=== PATIENT | male | born 1990 | race Two or more races ===

== ENCOUNTER 2020-07-21 08:19 | Outpatient (REF) | payer MEDICAID, SELFPAY ==
[2020-07-21 08:42] LABS: COVID-19 Test Negative (Negative)
== END 2020-07-21 08:20 | disposition home or self-care (01) ==
LOC: HO.LAB 08:19
PROVIDERS: Visit Provider Internal Medicine
DX: Z20.822 Contact with and (suspected) exposure to COVID-19 (principal)
CPT/HCPCS: 36415; 87635; C9803

== ENCOUNTER 2021-03-04 17:37 | Emergency (ER) | payer MEDICAID, SELFPAY ==
--- NOTE | ~2021-03-04 | CT_ITS ---
EXAMINATION: NONCONTRAST HEAD CT NONCONTRAST CERVICAL SPINE CT INDICATION INFORMATION: Seizure, neck pain, head injury COMPARISON: None TECHNIQUE: Separate noncontrast CT examinations of the head and cervical spine were performed. Coronal head CT images and coronal and sagittal cervical spine images were created at the technologist workstation. DLP: 1224 mGy-cm DOSE LOWERING TECHNIQUES: This CT examination was performed using dose optimization techniques as appropriate, variously including the following: - Automated exposure control - Adjustment of mA and/or kV according to patient size (this includes techniques or standardized protocols for targeted exams were dose is matched to indication/reason for exam; i.e. extremities or head) - Use of iterative reconstruction technique FINDINGS: Head: There is no evidence of acute intracranial hemorrhage or territorial infarction. No abnormal mass-effect or midline shift is seen. Mae to white matter differentiation is well preserved. No extra-axial fluid collections are identified. The ventricles are normal in size. There is no abnormal attenuation within the brain parenchyma. The osseous structures and soft tissues are normal. There are suspected mucous retention cyst in the maxillary sinuses inferiorly. The mastoid air cells are well-aerated. Cervical spine: There is anatomic alignment of the vertebral bodies and posterior elements. Vertebral body heights are maintained. Intervertebral disc spaces are preserved. No evidence of acute fracture. No prevertebral soft tissue swelling. Visualized portions of the lung apices are unremarkable. The thyroid gland is unremarkable. CT/CT head/brain wo con IMPRESSION: No acute findings identified in the head or cervical spine.
--- NOTE | ~2021-03-04 | CT_ITS ---
EXAMINATION: NONCONTRAST HEAD CT NONCONTRAST CERVICAL SPINE CT INDICATION INFORMATION: Seizure, neck pain, head injury COMPARISON: None TECHNIQUE: Separate noncontrast CT examinations of the head and cervical spine were performed. Coronal head CT images and coronal and sagittal cervical spine images were created at the technologist workstation. DLP: 1224 mGy-cm DOSE LOWERING TECHNIQUES: This CT examination was performed using dose optimization techniques as appropriate, variously including the following: - Automated exposure control - Adjustment of mA and/or kV according to patient size (this includes techniques or standardized protocols for targeted exams were dose is matched to indication/reason for exam; i.e. extremities or head) - Use of iterative reconstruction technique FINDINGS: Head: There is no evidence of acute intracranial hemorrhage or territorial infarction. No abnormal mass-effect or midline shift is seen. Mae to white matter differentiation is well preserved. No extra-axial fluid collections are identified. The ventricles are normal in size. There is no abnormal attenuation within the brain parenchyma. The osseous structures and soft tissues are normal. There are suspected mucous retention cyst in the maxillary sinuses inferiorly. The mastoid air cells are well-aerated. Cervical spine: There is anatomic alignment of the vertebral bodies and posterior elements. Vertebral body heights are maintained. Intervertebral disc spaces are preserved. No evidence of acute fracture. No prevertebral soft tissue swelling. Visualized portions of the lung apices are unremarkable. The thyroid gland is unremarkable. CT/CT cervical spine wo con IMPRESSION: No acute findings identified in the head or cervical spine.
[2021-03-04 18:23] VITALS: BP 119/89; PULSE 91; RESP 12; TEMP 36.7; O2SAT 99; BMI 22.6
--- NOTE | 2021-03-04 21:27 | ECG_ITS ---
Test Reason : SEIZURE Blood Pressure : / mmHG Vent. Rate : 064 BPM Atrial Rate : 064 BPM P-R Int : 102 ms QRS Dur : 090 ms QT Int : 374 ms P-R-T Axes : 061 055 058 degrees QTc Int : 385 ms Sinus rhythm with short [place] ST elevation, consider early repolarization Borderline ECG No previous ECGs available Referred By: Hernan Singh Electronically Signed By:Aman Camacho
[2021-03-04 21:45] LABS: MANUAL DIFF FLAG NO
[2021-03-04] MEDS: LORazepam 2 MG/ML VIAL IVPUSH (21:45)
[2021-03-04 21:47] LABS: Basophils Absolute Auto 0.1 X10*3/uL (0.0-0.2); Basophils Percent Auto 0.4 % (0-2); Eosinophils Percent Auto 0.2 % (0-4); Hematocrit 52.2 % (42.0-52.0); Hemoglobin 17.1 g/dl (14.0-18.0); Imm Gran Abs Auto 0.11 X10*3/uL (0.00-0.03); Imm Gran Pct Auto 0.6 % (0.0-0.4); Lymphocytes Absolute Auto 2.6 X10*3/uL (1.2-4.9); Lymphocytes Percent Auto 14.2 % (20-40); Mean Corpuscular HGB Conc 32.8 g/dl (31.0-36.0); Mean Corpuscular Hemoglobin 29.6 pg (27.0-33.0); Mean Corpuscular Volume 90.5 fL (80.0-98.0); Mean Platelet Volume 11.4 fL (9.4-12.4); Monocytes Absolute Auto 0.8 X10*3/uL (0.1-1.2); Monocytes Percent Auto 4.6 % (2-11); Neutrophils Absolute Auto 14.5 x10*3/uL (2.0-8.3); Platelet Count 267 X10*3/uL (160-400); Red Blood Count 5.77 X10*6/uL (4.60-5.80); Red Cell Distribution Width 13.4 % (11.0-16.0); White Blood Count 18.1 X10*3/uL (4.8-10.8)
[2021-03-04 22:00] VITALS: BP 98/56; PULSE 67; RESP 18; TEMP 36.8; O2SAT 96
[2021-03-04 22:07] LABS: Alanine Aminotransferase 30 U/L (0-40); Alkaline Phosphatase 108 U/L (39-117); Anion Gap 24 (12-20); Aspartate Amino Transferase 24 U/L (5-37); Bilirubin Direct < 0.2 mg/dL (0.0-0.5); Bilirubin Total 0.4 mg/dL (0.0-1.0); Blood Urea Nitrogen 9 mg/dL (9-16); Calcium 9.8 mg/dL (8.4-10.2); Carbon Dioxide 14 mmol/L (22-29); Chloride 107 mmol/L (96-108); Creatinine Clr Calc Pharmacy 98.9; Estimated Glomerular Filt Rate > 60; Glucose Random 119 mg/dL (60-115); Lipase 74 U/L (8-78); Potassium 3.7 mmol/L (3.3-5.1); Sodium 141 mmol/L (135-145); Total Protein 8.6 g/dL (6.5-8.0)
[2021-03-04 22:12] LABS: Ethanol < 10 mg/dL
[2021-03-04 22:24] VITALS: BP 99/57; PULSE 76; RESP 15; O2SAT 97
[2021-03-04 23:12] LABS: COVID-19 Test Negative (Negative)
[2021-03-04 23:35] VITALS: BP 107/59; PULSE 77; RESP 20; TEMP 36.6; O2SAT 98
[2021-03-04 23:49] LABS: Appearance Urine CLEAR; Color Urine YELLOW; Glucose Urine UA NEG (NEG); Leukocyte Esterase Urine NEG (NEG); Nitrite Urine NEG (NEG); Specific Gravity - Urine >= 1.030 (1.005-1.025); UACC Culture Trigger NO; Urine Blood NEG (NEG); Urine Ketones NEG (NEG); Urine Protein 1+ MG/DL (NEG-TRACE)
--- NOTE | 2021-03-04 23:56 | PC.NURSE ---
PT is resting in bed comfortably. PT VSS at this time. PT becoming more oriented over time; aware of person and place with some uncertainty about time and events leading up to now. PT is waiting to receive results from CT scan.
[2021-03-05 00:02] LABS: Squamous Epithelial Cell Urine TRACE /LPF
[2021-03-05 00:03] LABS: Mucus Urine 1+ /LPF; Sperm Urine NOTED
[2021-03-05 00:04] LABS: Amphetamine Screen Urine Not Detected (Not Detect); Barbiturates, Urine Not Detected (Not Detect); Benzodiazepines Screen Urine Not Detected (Not Detect); Cannabinoid Screen Urine POSITIVE (Not Detect); Cocaine Screen Urine Not Detected (Not Detect); Fentanyl, urine Not Detected (Not Detect); Opiate Screen Urine Not Detected (Not Detect); Phencyclidine Screen Urine Not Detected (Not Detect)
[2021-03-05] MEDS: Lidocaine HCl 2%/Epi 1:100,000 20 ML VIAL INFILTRATI (00:24)
[2021-03-05] MEDS: Diphth,Pertus(ACell),Tet Adult 0.5 ML SYRINGE IM (00:24)
[2021-03-05] MEDS: levETIRAcetam in NaCl (iso-os) 500 MG/100 ML PIGGYBACK 400 MG IV (00:30)
--- NOTE | 2021-03-05 01:19 | ED.GENADULT ---
HPI - General Adult General Chief complaint: Nausea/Vomiting/Diarrhea Stated complaint: vomiting,dizzines ,headache Time Seen by Provider: 03/04/21 21:20 Source: patient Mode of arrival: EMS Limitations: no limitations History of Present Illness HPI narrative: 36-year-old male who presents emergency department for evaluation dizziness and nausea. He states that the symptoms started while he was playing a video game, [employer]. This is a video again that he has plate before without any difficulty. He states that while he was playing a video game he started to feel lightheaded and dizzy as if he is going to pass out. He also developed nausea with no vomiting. The patient states that he was not ill in any other way. He denied fever, chills, chest pain, shortness of breath, abdominal pain, changes bowel movements. While the patient was waiting in the emergency department to be seen he had a tonic-clonic seizure and fell to the floor striking his head on the for an sustaining a laceration above his left eye. He was brought immediately back into the emergency department and he was postictal. He was treated with Ativan 2 mg IV. After the postictal period resolved, the patient did tell me that this was his 4th or 5th seizure and he has not been seen by a provider, neurologist for treated for the seizures. He does not know of anything that triggers his seizures. He denied using alcohol or drugs. Related Data Previous Rx's Medication Instructions Recorded levetiracetam 500 mg tablet 500 mg PO BID #60 tab 03/05/21 (Keppra) Allergies Allergy/AdvReac Type Severity Reaction Status Date / Time No Known Allergies Allergy Unverified 11/21/19 18:12 Review of Systems Review of Systems: Yes all other systems are reviewed and are negative [facility] Past Medical History [facility] Narrative: Past medical history: Untreated seizure disorder. Social history: He denies tobacco, alcohol and drug use. Social History Social History Advance Directives: No Advance Directives Information Provided: No Physical Exam Vital Signs: Vital Signs: Last Vital Signs Temp 97.8 F 03/04/21 23:35 Pulse 77 03/04/21 23:35 Resp 20 03/04/21 23:35 BP 107/59 L 03/04/21 23:35 Pulse Ox 98 03/04/21 23:35 BMI result Body Mass Index 22.6 Const: Other: Patient was initially postictal after approximately 20 minutes he was able to give a complete history. HENMT: Head: Yes normal to inspection, Yes normocephalic and Yes atraumatic Ears: external ears normal General nose exam: Normal external nose present Face and sinus: Yes other (5.0 cm C-shaped lac above the left eyebrow on, involving muscle layer) Mouth: Normal oral and palatal mucosa present Throat: Yes posterior oropharynx normal Eyes: General: appearance normal, both eyes and all related structures Pupils: Equal, round and reactive pupils present Neck: Neck: Yes normal visual inspection, Yes no lymphadenopathy, Yes trachea midline and Yes supple Chest: Chest palpation & inspection: normal inspection of the chest and normal palpation of entire chest wall Resp: Effort & Inspection: normal respiratory effort and able to speak in complete sentences Auscultation: clear to auscultation bilaterally Cardio: Rate: regular rate Rhythm: regular rhythm Heart sounds: S1 normal heart sound present, S2 normal heart sound present and no murmurs GI: Inspection: Yes normal to inspection Palpation (GI): Soft to palpation, nontender and no guarding Auscultation: normal bowel sounds : General: Yes no CVA tenderness Back/Spine/Pelvis: Back: no CVA tenderness Skin: General skin exam: no rashes or lesions noted Neuro: Cranial nerves: Yes CN's II-XII intact bilaterally and Yes Equal, round and reactive pupils present Cognition (Neuro): normal cognition Motor exam (neuro): 5/5 motor strength present throughout Extrem: General: Yes normal to inspection Psych: Appearance: grossly normal Speech and movement: Normal speech and movement present Affect: normal affect Attitude: cooperative Thought process: Normal thought process present Thought content: Normal thought content present Course Course Course Narrative: 30-year-old male who presents emergency department for evaluation of nausea and dizziness that developed while use playing a video game that is plated the past. While the patient was waiting in the emergency department he had a tonic-clonic seizure in did strike his head on the floor sustaining a laceration above his left eyebrow which was repaired by me. The patient had a CT scan of his head and cervical spine which revealed no acute abnormalities. Laboratory evaluation [place] [address], elevated hematocrit of 52.2, low bicarb of 14 with an elevated anion gap of 24 which is consistent with lactic acidosis caused by has tonic-clonic seizure. Glucose was 119 which was slightly elevated. Urinalysis was negative. Urine tox screen was positive for marijuana only. COVID-19 test was negative. The patient reported to me that he has had at least 3-5 seizures in the past, he has not had any treatment for these seizures. Given the fact that he had a witnessed tonic clonic seizure with a fall and a postictal period, felt that the patient should be treated with antiepileptic medications. Patient was given Keppra 500 mg IV bolus. The patient will be started on Keppra 500 mg twice a day and will be referred to our neurologist for follow-up. 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 His laceration was repaired in the stitches will need to be removed by his primary provider, urgent care or the emergency department in 7-10 days. Procedures Laceration 5.0 cm C-shaped laceration above left eyebrow: Site: face Side (If applicable): left Size (cm): 5.0 Description: other (C-shaped) Depth: involves muscle layer Local Anesthetic: lidocaine 2% and with epi Amount of anesthesia used (mL): 10 Pre-repair: wound explored and irrigated extensively Skin layer closed with: nylon Size (cm): 5-0 Number of sutures: 8 Technique: simple, interrupted Subcutaneous layer closed with: vicryl Size: 4-0 Number of sutures: 3 Technique: simple, interrupted Muscle layer closed with: vicryl Size: 4-0 Number of sutures: 3 Technique: simple, interrupted Medical Decision Making Lab Data Result diagrams: 03/04/21 21:32 03/04/21 21:32 Labs: Lab Results 03/04/21 03/04/21 03/04/21 Range/Units 21:32 21:32 21:54 WBC 18.1 H (4.8-10.8) X10*3/uL RBC 5.77 (4.60-5.80) X10*6/uL Hgb 17.1 (14.0-18.0) g/dl Hct 52.2 H (42.0-52.0) % MCV 90.5 (80.0-98.0) fL MCH 29.6 (27.0-33.0) pg MCHC 32.8 (31.0-36.0) g/dl RDW 13.4 (11.0-16.0) % Plt Count 267 (160-400) X10*3/uL MPV 11.4 (9.4-12.4) fL Immature Gran % (Auto) 0.6 H (0.0-0.4) % Neut % (Auto) 80.0 H (45-73) % Lymph % (Auto) 14.2 L (20-40) % [place] % (Auto) 4.6 (2-11) % Eos % (Auto) 0.2 (0-4) % Baso % (Auto) 0.4 (0-2) % Lymph # (Auto) 2.6 (1.2-4.9) X10*3/uL [place] # (Auto) 0.8 (0.1-1.2) X10*3/uL Eos # (Auto) 0.0 (0.0-0.4) X10*3/uL Baso # (Auto) 0.1 (0.0-0.2) X10*3/uL Abs Immat Gran (auto) 0.11 H (0.00-0.03) X10*3/uL Absolute Neuts (auto) 14.5 H (2.0-8.3) x10*3/uL Absolute Nucleated RBC 0.000 (0.0-0.012) X10*3/uL Nucleated RBC % (auto) 0.0 (0.0-0.2) /100WBC Sodium 141 (135-145) mmol/L Potassium 3.7 (3.3-5.1) mmol/L Chloride 107 (96-108) mmol/L Carbon Dioxide 14 L (22-29) mmol/L Anion Gap 24 H (12-20) BUN 9 (9-16) mg/dL Creatinine 0.98 (0.5-1.4) mg/dL Estim Creat Clear Calc 98.9 Estimated GFR > 60 Random Glucose 119 H (60-115) mg/dL Calcium 9.8 (8.4-10.2) mg/dL Total Bilirubin 0.4 (0.0-1.0) mg/dL Direct Bilirubin < 0.2 (0.0-0.5) mg/dL AST 24 (5-37) U/L ALT 30 (0-40) U/L Alkaline Phosphatase 108 (39-117) U/L Total Protein 8.6 H (6.5-8.0) g/dL Albumin 5.0 (3.5-5.0) g/dL Lipase 74 (8-78) U/L Urine Color Urine Appearance Urine pH (5.0-8.0) Ur Specific [place] (1.005-1.025) Urine Protein (NEG-TRACE) MG/DL Urine Glucose (UA) (NEG) MG/DL Urine Ketones (NEG) MG/DL Urine Blood (NEG) Urine Nitrite (NEG) Ur Leukocyte Esterase (NEG) Urine RBC (0) /HPF Urine WBC (0-4) /HPF Ur Squamous Epith Cells /LPF Urine Bacteria /LPF Urine Mucus /LPF Urine Sperm Urine Opiates Screen (Not Detect) Urine Fentanyl Screen (Not Detect) Ur Barbiturates Screen (Not Detect) Ur Phencyclidine Scrn (Not Detect) Ur Amphetamines Screen (Not Detect) U Benzodiazepines Scrn (Not Detect) Urine Cocaine Screen (Not Detect) U Marijuana (THC) Screen (Not Detect) Ethyl Alcohol < 10 mg/dL COVID-19 ([facility]) (Negative) COVID-19 Clin Com 03/04/21 03/04/21 03/04/21 Range/Units 22:52 23:42 23:42 WBC (4.8-10.8) X10*3/uL RBC (4.60-5.80) X10*6/uL Hgb (14.0-18.0) g/dl Hct (42.0-52.0) % MCV (80.0-98.0) fL MCH (27.0-33.0) pg MCHC (31.0-36.0) g/dl RDW (11.0-16.0) % Plt Count (160-400) X10*3/uL MPV (9.4-12.4) fL Immature Gran % (Auto) (0.0-0.4) % Neut % (Auto) (45-73) % Lymph % (Auto) (20-40) % [place] % (Auto) (2-11) % Eos % (Auto) (0-4) % Baso % (Auto) (0-2) % Lymph # (Auto) (1.2-4.9) X10*3/uL [place] # (Auto) (0.1-1.2) X10*3/uL Eos # (Auto) (0.0-0.4) X10*3/uL Baso # (Auto) (0.0-0.2) X10*3/uL Abs Immat Gran (auto) (0.00-0.03) X10*3/uL Absolute Neuts (auto) (2.0-8.3) x10*3/uL Absolute Nucleated RBC (0.0-0.012) X10*3/uL Nucleated RBC % (auto) (0.0-0.2) /100WBC Sodium (135-145) mmol/L Potassium (3.3-5.1) mmol/L Chloride (96-108) mmol/L Carbon Dioxide (22-29) mmol/L Anion Gap (12-20) BUN (9-16) mg/dL Creatinine (0.5-1.4) mg/dL Estim Creat Clear Calc Estimated GFR Random Glucose (60-115) mg/dL Calcium (8.4-10.2) mg/dL Total Bilirubin (0.0-1.0) mg/dL Direct Bilirubin (0.0-0.5) mg/dL AST (5-37) U/L ALT (0-40) U/L Alkaline Phosphatase (39-117) U/L Total Protein (6.5-8.0) g/dL Albumin (3.5-5.0) g/dL Lipase (8-78) U/L Urine Color YELLOW Urine Appearance CLEAR Urine pH 6.0 (5.0-8.0) Ur Specific [place] >= 1.030 H (1.005-1.025) Urine Protein 1+ H (NEG-TRACE) MG/DL Urine Glucose (UA) NEG (NEG) MG/DL Urine Ketones NEG (NEG) MG/DL Urine Blood NEG (NEG) Urine Nitrite NEG (NEG) Ur Leukocyte Esterase NEG (NEG) Urine RBC 1-4 (0) /HPF Urine WBC 1-4 (0-4) /HPF Ur Squamous Epith Cells TRACE /LPF Urine Bacteria NONE /LPF Urine Mucus 1+ /LPF Urine Sperm NOTED Urine Opiates Screen Not Detected (Not Detect) Urine Fentanyl Screen Not Detected (Not Detect) Ur Barbiturates Screen Not Detected (Not Detect) Ur Phencyclidine Scrn Not Detected (Not Detect) Ur Amphetamines Screen Not Detected (Not Detect) U Benzodiazepines Scrn Not Detected (Not Detect) Urine Cocaine Screen Not Detected (Not Detect) U Marijuana (THC) Screen POSITIVE H (Not Detect) Ethyl Alcohol mg/dL COVID-19 ([facility]) Negative (Negative) COVID-19 Clin Com See Note Discharge Plan Discharge Clinical Impression: Seizure Complex laceration of face Qualifiers: Encounter type: initial encounter Qualified Code(s): S01.91XA - Laceration without foreign body of unspecified part of head, initial encounter Patient Disposition: Home, Self-Care Instructions: Laceration (ED), New-Onset Seizure in Adults (ED) Additional Instructions: You had a seizure here in the emergency department. Your dizziness and light headedness may have been an aura (a warning that you were going to have a seizure). You told me that this was your 4th or 5th seizure and that you have not gotten any treatment or evaluation for the seizures. Given this fact, I am starting you on anti seizure medications. Your were given Keppra 500 mg IV here in the emergency department. I am prescribe Keppra 500 mg twice a day, I am giving you a 1 month supply but you will need to get a refill of this medication and stay on this medication until you are evaluated by our neurologist. You had a laceration above your left eye that you got when you fell to the floor and had your seizure. You have 6 internal sutures that will dissolve and you have 8 external sutures that will need to be removed by your doctor, an urgent care clinic or the emergency department in 7-10 days. Apply bacitracin twice a day to the laceration until the stitches are removed. Take Tylenol (acetaminophen) 500 mg pills, 2 pills every 4 to 6 hours as needed for pain. Follow-up with your doctor in 2 days. Call our on-call neurologist office tomorrow to try to make a follow-up appointment in 1-2 weeks for further evaluation and treatment of your seizures. Please return to the emergency department if your symptoms get worse or if you develop any symptoms that are concerning to you. Prescriptions: New levetiracetam [Keppra] 500 mg tablet 500 mg PO BID Qty: 60 RF: 0 Referrals: Joan Cesar MD [Physician] - 2 weeks
[2021-03-05 01:45] VITALS: BP 101/64; PULSE 77; RESP 16; O2SAT 97
== END 2021-03-05 02:04 | disposition home or self-care (01) ==
PROVIDERS: Emergency Provider Emergency Medicine Emergency Medical Services
DX: S01.91XA Laceration without foreign body of unspecified part of head, initial encounter (principal); R56.9 Unspecified convulsions; R11.2 Nausea with vomiting, unspecified; R42 Dizziness and giddiness; M54.2 Cervicalgia; R51.9 Headache, unspecified; W18.30XA Fall on same level, unspecified, initial encounter; Y93.9 Activity, unspecified; Y92.9 Unspecified place or not applicable; Y99.9 Unspecified external cause status; Z20.822 Contact with and (suspected) exposure to COVID-19; Z79.899 Other long term (current) drug therapy
CPT/HCPCS: 12002; 36415; 70450; 72125; 80048; 80076; 80307; 81001; 82077; 83690; 85025; 87635; 90471; 90715; 93005; 96374; 96375; 99284; 99285; J1953; J2060

== ENCOUNTER 2021-06-11 21:16 | Emergency (ER) | payer MEDICAID, SELFPAY ==
--- NOTE | ~2021-06-11 | CT_ITS ---
EXAMINATION: CT HEAD WITHOUT CONTRAST CLINICAL INFORMATION: Seizure COMPARISON: 03/04/2021 TECHNIQUE: Contiguous axial imaging was performed from the skull base to vertex without intravenous administration of contrast. This CT examination was performed using dose optimization techniques as appropriate, variously including the following: *Automated exposure control *Adjustment of mA and/or kV according to patient size (this includes techniques or standardized protocols for targeted exams where dose is matched to indication/reason for exam; i.e. extremities or head) *Use of iterative reconstruction technique DLP: 723 mGy-cm FINDINGS: There is no evidence of acute intracranial hemorrhage or territorial infarction. No abnormal mass effect or midline shift is seen. Mae to white matter differentiation is well preserved. No extra-axial fluid collections are identified. The ventricles are normal in size. There is no abnormal attenuation within the brain parenchyma. The osseous structures and soft tissues are normal. Mucous retention cyst noted in the left maxillary sinus. The mastoid air cells are well-aerated. CT/CT head/brain wo con IMPRESSION: No acute intracranial pathology.
[2021-06-11 21:26] VITALS: BP 122/78; PULSE 88; RESP 16; TEMP 37.1; O2SAT 94
[2021-06-11 21:33] VITALS: BP 142/84; PULSE 95; O2SAT 95; BMI 21.7
--- NOTE | 2021-06-11 21:54 | ECG_ITS ---
Test Reason : SEIZURE Blood Pressure : / mmHG Vent. Rate : 078 BPM Atrial Rate : 078 BPM P-R Int : 132 ms QRS Dur : 084 ms QT Int : 350 ms P-R-T Axes : 036 030 040 degrees QTc Int : 399 ms Normal sinus rhythm Normal ECG When compared with ECG of 04-MAR-2021 22:07, No significant change was found Referred By: Marnie Crandall Electronically Signed By:CAITIE BRAMBILA MD
--- NOTE | 2021-06-11 21:56 | ED.SEIZURE ---
HPI - Seizure General Chief Complaint: Seizure Stated Complaint: seizure Time Seen by Provider: 06/11/21 21:54 Source: patient, family ( brother) and EMS Mode of arrival: EMS Limitations: no limitations History of Present Illness HPI Narrative: 30-year-old male came in by ambulance for evaluation after witnessed seizure. Patient was sitting on the couch talking to his brother, brother noticed that the patient is making abnormal noises and yawning but not responding time then shortly started to have generalized tonic clonic seizure on the couch, no witness falling on the floor or head injury, patient had history of seizure once in the past about 3 months ago. Patient is not taking any medicine for seizure, patient declined using any drugs only smokes marijuana occasionally, no alcohol abuse, patient otherwise declined any other symptoms. Patient complained of left-sided chest pain that has been constant after the seizure, no radiation, the pain is worsening with movement or touching the area with his hand No fever, no chills. Related Data Previous Rx's Medication Instructions Recorded levetiracetam 500 mg tablet 500 mg PO BID #60 tab 03/05/21 (Keppra) levetiracetam 500 mg tablet 500 mg PO BID #60 tab 06/12/21 (Keppra) Allergies Allergy/AdvReac Type Severity Reaction Status Date / Time No Known Allergies Allergy Unverified 11/21/19 18:12 Review of Systems Review of Systems: All other systems are reviewed and are negative Constitutional: Reports as per HPI and Reports no additional constitutional complaints Eyes: Reports as per HPI and Reports no additional eye complaints Reports system reviewed and no additional complaints, except as documented Cardiovascular: Reports as per HPI and Reports no additional cardiovascular complaints Respiratory: Reports as per HPI and Reports no additional respiratory complaints Gastrointestinal: Reports as per HPI and Reports no additional gastrointestinal complaints Genitourinary: Reports no additional female genitourinary complaints Musculoskeletal: Reports no additional musculoskeletal complaints Skin/Breast: Reports system reviewed and no additional complaints, except as docu Psychiatric: Reports no additional psychiatric complaints Endocrine: Reports no additional endocrine complaints Hematologic/Lymphatic: Reports no additional hematologic/lymphatic complaints Allergic/Immunologic: Reports no additional allergic/immunologic complaints Reports system reviewed and no additional complaints, except as documented and Reports Abnormal speech present. [facility] Social History Social History Advance Directives: No Advance Directives Information Provided: No Physical Exam Vital Signs: Vital Signs: Last Vital Signs Temp 98.9 F 06/11/21 22:16 Pulse 76 06/11/21 22:16 Resp 24 H 06/11/21 22:16 BP 125/71 06/11/21 22:16 Pulse Ox 96 06/11/21 22:16 BMI result Body Mass Index 21.7 vital signs have been reviewed as appeared to be correct. Blood pressure normal. Heart rate normal. Respiration rate normal. Temperature normal. Oxygen saturation normal. Appearance: Alert. Oriented X3. No acute distress. Head: Normal external exam. Normocephalic. Atraumatic. No Robbins signs noted. No raccoon eyes noted Eyes: PERRLA. EOMI. Conjunctiva and sclera normal. Eyelids normal. ENT: TM's Normal. Pharynx normal. Uvula midline. Moist mucous membranes. No trismus noted. No drooling noted. No muffled voice noted. Neck: Normal inspection. Neck supple. FROM. No adenopathy. Thyroid Normal. No meningeal signs. No neck mass noted. CVS: Normal heart rate and rhythm. Heart sound normal. No murmurs noted. Pulses normal throughout. Respiratory: No respiratory distress. Painless inspiration. Breath sounds normal. No wheezes/rales/rhonchi noted. Chest nontender. No accessory muscle usage noted or decreased air movement noted. Abdomen: Soft and nontender. Bowel sounds normal in all 4 quadrants. No distention noted. No organomegaly noted. No visible injury noted. Back: No CVA tenderness. Full range of motion noted. Skin: Skin warm and dry. Normal skin color. Normal skin turgor. No rashes/lesions/lacerations noted. Extremities: No lower extremity edema. Extremities exhibit normal range of motion. Extremities nontender. Neuro: Oriented X 3. Cranial nerve exam: II-XII are grossly intact No motor deficit. No sensory deficit. Reflexes normal. Course Course Course Narrative: assessment and plan. 30-year-old male recent history of seizure and presented with witnessed tonic clonic seizure, negative workup in the emergency department including head CT, neuro exam is intact. will start the patient on Keppra 500 mg b.i.d. and follow up with Neurology as an outpatient. MDM - Seizure Lab Data Attestation: I reviewed the patient's lab results. Result diagrams: 06/11/21 22:09 06/11/21 22:09 Labs: Lab Results 06/11/21 06/11/21 06/11/21 Range/Units 22:09 22:09 22:09 WBC 8.7 (4.8-10.8) X10*3/uL RBC 5.12 (4.60-5.80) X10*6/uL Hgb 15.1 (14.0-18.0) g/dl Hct 43.9 (42.0-52.0) % MCV 85.7 (80.0-98.0) fL MCH 29.5 (27.0-33.0) pg MCHC 34.4 (31.0-36.0) g/dl RDW 13.1 (11.0-16.0) % Plt Count 239 (160-400) X10*3/uL MPV 10.9 (9.4-12.4) fL Immature Gran % (Auto) 0.6 H (0.0-0.4) % Neut % (Auto) 75.0 H (45-73) % Lymph % (Auto) 14.3 L (20-40) % [place] % (Auto) 8.0 (2-11) % Eos % (Auto) 1.8 (0-4) % Baso % (Auto) 0.3 (0-2) % Lymph # (Auto) 1.2 (1.2-4.9) X10*3/uL [place] # (Auto) 0.7 (0.1-1.2) X10*3/uL Eos # (Auto) 0.2 (0.0-0.4) X10*3/uL Baso # (Auto) 0.0 (0.0-0.2) X10*3/uL Abs Immat Gran (auto) 0.05 H (0.00-0.03) X10*3/uL Absolute Neuts (auto) 6.5 (2.0-8.3) x10*3/uL Absolute Nucleated RBC 0.000 (0.0-0.012) X10*3/uL Nucleated RBC % (auto) 0.0 (0.0-0.2) /100WBC Sodium 138 (135-145) mmol/L Potassium 4.3 (3.3-5.1) mmol/L Chloride 104 (96-108) mmol/L Carbon Dioxide 24 (22-29) mmol/L Anion Gap 14 (12-20) BUN 13 (9-16) mg/dL Creatinine 0.86 (0.5-1.4) mg/dL Estim Creat Clear Calc 108.7 Estimated GFR > 60 Random Glucose 82 (60-115) mg/dL Calcium 9.6 (8.4-10.2) mg/dL Magnesium 2.3 (1.6-2.6) mg/dL Total Bilirubin 0.3 (0.0-1.0) mg/dL Direct Bilirubin < 0.2 (0.0-0.5) mg/dL AST 25 (5-37) U/L ALT 35 (0-40) U/L Alkaline Phosphatase 92 (39-117) U/L Troponin I High Sens 5.0 (<3.5-35.0) ng/L Total Protein 7.6 (6.5-8.0) g/dL Albumin 4.6 (3.5-5.0) g/dL Lipase 45 (8-78) U/L Urine Color Urine Appearance Urine pH (5.0-8.0) Ur Specific [place] (1.005-1.025) Urine Protein (NEG-TRACE) MG/DL Urine Glucose (UA) (NEG) MG/DL Urine Ketones (NEG) MG/DL Urine Blood (NEG) Urine Nitrite (NEG) Ur Leukocyte Esterase (NEG) Urine Opiates Screen (Not Detect) Urine Fentanyl Screen (Not Detect) Ur Barbiturates Screen (Not Detect) Ur Phencyclidine Scrn (Not Detect) Ur Amphetamines Screen (Not Detect) U Benzodiazepines Scrn (Not Detect) Urine Cocaine Screen (Not Detect) U Marijuana (THC) Screen (Not Detect) 06/11/21 06/11/21 Range/Units 22:16 22:16 WBC (4.8-10.8) X10*3/uL RBC (4.60-5.80) X10*6/uL Hgb (14.0-18.0) g/dl Hct (42.0-52.0) % MCV (80.0-98.0) fL MCH (27.0-33.0) pg MCHC (31.0-36.0) g/dl RDW (11.0-16.0) % Plt Count (160-400) X10*3/uL MPV (9.4-12.4) fL Immature Gran % (Auto) (0.0-0.4) % Neut % (Auto) (45-73) % Lymph % (Auto) (20-40) % [place] % (Auto) (2-11) % Eos % (Auto) (0-4) % Baso % (Auto) (0-2) % Lymph # (Auto) (1.2-4.9) X10*3/uL [place] # (Auto) (0.1-1.2) X10*3/uL Eos # (Auto) (0.0-0.4) X10*3/uL Baso # (Auto) (0.0-0.2) X10*3/uL Abs Immat Gran (auto) (0.00-0.03) X10*3/uL Absolute Neuts (auto) (2.0-8.3) x10*3/uL Absolute Nucleated RBC (0.0-0.012) X10*3/uL Nucleated RBC % (auto) (0.0-0.2) /100WBC Sodium (135-145) mmol/L Potassium (3.3-5.1) mmol/L Chloride (96-108) mmol/L Carbon Dioxide (22-29) mmol/L Anion Gap (12-20) BUN (9-16) mg/dL Creatinine (0.5-1.4) mg/dL Estim Creat Clear Calc Estimated GFR Random Glucose (60-115) mg/dL Calcium (8.4-10.2) mg/dL Magnesium (1.6-2.6) mg/dL Total Bilirubin (0.0-1.0) mg/dL Direct Bilirubin (0.0-0.5) mg/dL AST (5-37) U/L ALT (0-40) U/L Alkaline Phosphatase (39-117) U/L Troponin I High Sens (<3.5-35.0) ng/L Total Protein (6.5-8.0) g/dL Albumin (3.5-5.0) g/dL Lipase (8-78) U/L Urine Color YELLOW Urine Appearance CLEAR Urine pH 6.0 (5.0-8.0) Ur Specific [place] 1.020 (1.005-1.025) Urine Protein TRACE (NEG-TRACE) MG/DL Urine Glucose (UA) NEG (NEG) MG/DL Urine Ketones NEG (NEG) MG/DL Urine Blood NEG (NEG) Urine Nitrite NEG (NEG) Ur Leukocyte Esterase NEG (NEG) Urine Opiates Screen Not Detected (Not Detect) Urine Fentanyl Screen Not Detected (Not Detect) Ur Barbiturates Screen Not Detected (Not Detect) Ur Phencyclidine Scrn Not Detected (Not Detect) Ur Amphetamines Screen Not Detected (Not Detect) U Benzodiazepines Scrn Not Detected (Not Detect) Urine Cocaine Screen Not Detected (Not Detect) U Marijuana (THC) Screen POSITIVE H (Not Detect) Imaging Data CT scan - head: Attestation: I personally reviewed and interpreted this imaging study as follows: Radiologist's impression: No acute intracranial pathology. Discharge Plan Discharge Clinical Impression: Generalized seizure Patient Disposition: Home, Self-Care Instructions: Recurrent Seizures in Adults (ED) Prescriptions: New levetiracetam [Keppra] 500 mg tablet 500 mg PO BID Qty: 60 0RF No Action levetiracetam [Keppra] 500 mg tablet 500 mg PO BID Qty: 60 0RF Referrals: Ceci Alicea MD [Physician] -
[2021-06-11 22:16] VITALS: BP 125/71; PULSE 76; RESP 24; TEMP 37.2; O2SAT 96
[2021-06-11 22:16] LABS: MANUAL DIFF FLAG NO
[2021-06-11 22:17] LABS: Basophils Percent Auto 0.3 % (0-2); Eosinophils Absolute Auto 0.2 X10*3/uL (0.0-0.4); Eosinophils Percent Auto 1.8 % (0-4); Hematocrit 43.9 % (42.0-52.0); Hemoglobin 15.1 g/dl (14.0-18.0); Imm Gran Abs Auto 0.05 X10*3/uL (0.00-0.03); Imm Gran Pct Auto 0.6 % (0.0-0.4); Lymphocytes Absolute Auto 1.2 X10*3/uL (1.2-4.9); Lymphocytes Percent Auto 14.3 % (20-40); Mean Corpuscular HGB Conc 34.4 g/dl (31.0-36.0); Mean Corpuscular Hemoglobin 29.5 pg (27.0-33.0); Mean Corpuscular Volume 85.7 fL (80.0-98.0); Mean Platelet Volume 10.9 fL (9.4-12.4); Monocytes Absolute Auto 0.7 X10*3/uL (0.1-1.2); Neutrophils Absolute Auto 6.5 x10*3/uL (2.0-8.3); Platelet Count 239 X10*3/uL (160-400); Red Blood Count 5.12 X10*6/uL (4.60-5.80); Red Cell Distribution Width 13.1 % (11.0-16.0); White Blood Count 8.7 X10*3/uL (4.8-10.8)
[2021-06-11 22:24] LABS: Appearance Urine CLEAR; Color Urine YELLOW; Glucose Urine UA NEG (NEG); Leukocyte Esterase Urine NEG (NEG); Nitrite Urine NEG (NEG); Urine Blood NEG (NEG); Urine Ketones NEG (NEG); Urine Protein TRACE MG/DL (NEG-TRACE)
[2021-06-11 22:35] LABS: Alanine Aminotransferase 35 U/L (0-40); Albumin Level 4.6 g/dL (3.5-5.0); Alkaline Phosphatase 92 U/L (39-117); Anion Gap 14 (12-20); Aspartate Amino Transferase 25 U/L (5-37); Bilirubin Direct < 0.2 mg/dL (0.0-0.5); Bilirubin Total 0.3 mg/dL (0.0-1.0); Blood Urea Nitrogen 13 mg/dL (9-16); Calcium 9.6 mg/dL (8.4-10.2); Carbon Dioxide 24 mmol/L (22-29); Chloride 104 mmol/L (96-108); Creatinine Clr Calc Pharmacy 108.7; Estimated Glomerular Filt Rate > 60; Glucose Random 82 mg/dL (60-115); Lipase 45 U/L (8-78); Magnesium 2.3 mg/dL (1.6-2.6); Potassium 4.3 mmol/L (3.3-5.1); Sodium 138 mmol/L (135-145); Total Protein 7.6 g/dL (6.5-8.0)
[2021-06-11 22:39] LABS: Amphetamine Screen Urine Not Detected (Not Detect); Barbiturates, Urine Not Detected (Not Detect); Benzodiazepines Screen Urine Not Detected (Not Detect); Cannabinoid Screen Urine POSITIVE (Not Detect); Cocaine Screen Urine Not Detected (Not Detect); Fentanyl, urine Not Detected (Not Detect); Opiate Screen Urine Not Detected (Not Detect); Phencyclidine Screen Urine Not Detected (Not Detect)
[2021-06-11] MEDS: levETIRAcetam 500 MG TABLET PO (22:46)
[2021-06-11] MEDS: 0.9 % Sodium Chloride 1,000 ML 999 ML IV (22:47)
== END 2021-06-12 00:29 | disposition home or self-care (01) ==
PROVIDERS: Emergency Provider Emergency Medicine
DX: R56.9 Unspecified convulsions (principal); Z79.899 Other long term (current) drug therapy
CPT/HCPCS: 36415; 70450; 80048; 80076; 80307; 81003; 83690; 83735; 84484; 85025; 93005; 96360; 99283; 99284

== ENCOUNTER 2022-01-14 12:29 | Emergency (ER) | payer MEDICAID, SELFPAY ==
--- NOTE | ~2022-01-14 | CT_ITS ---
EXAMINATION: CT HEAD WITHOUT CONTRAST CLINICAL INFORMATION: History of seizure, fall, head strike, headache. COMPARISON: 03/04/2021 TECHNIQUE: Contiguous axial imaging was performed from the skull base to vertex without intravenous administration of contrast. This CT examination was performed using dose optimization techniques as appropriate, variously including the following: *Automated exposure control *Adjustment of mA and/or kV according to patient size (this includes techniques or standardized protocols for targeted exams where dose is matched to indication/reason for exam; i.e. extremities or head) *Use of iterative reconstruction technique DLP: 679 mGy-cm FINDINGS: The brain parenchyma has normal attenuation. The [place]-white matter differentiation is well preserved. No evidence of an acute major vascular territory infarction. No intracranial hemorrhage, extra-axial fluid collection, focal mass effect or midline shift. The ventricles have normal size and configuration; no hydrocephalus. The brainstem and cerebellum have a normal appearance. The cerebellar tonsils are in normal position. The calvarium is intact. Small amount mucus is seen at the floor of the left sphenoid sinus. Otherwise, the visualized paranasal sinuses, mastoid air cells and middle ear cavities are well aerated. The partially visualized orbits and globes are unremarkable. The temporomandibular joints are normal. CT/CT head/brain wo IV con IMPRESSION: No hemorrhage or other acute intracranial pathology.
[2022-01-14 12:48] VITALS: BP 116/78; BP 120/84; PULSE 110; PULSE 84; RESP 18; TEMP 36.6; O2SAT 95; O2SAT 97; BMI 24.6
--- NOTE | 2022-01-14 12:56 | ED.SEIZURE ---
HPI - Seizure General Chief Complaint: Seizure Stated Complaint: WITNESSED SEIZURE Time Seen by Provider: 01/14/22 12:55 Source: patient and EMS Mode of arrival: EMS Limitations: no limitations History of Present Illness HPI Narrative: 31 yo male with history of seizure disorder on keppra 500 mg bid presents to the ER for evaluation of a witnessed tonic clonic seizure at home. Patient does not recall the events. He arrives to the ER awake, alert, oriented. He complains of a headache. He states 6 or 7 weeks ago he stopped taking his Keppra due to adverse side effects including nausea, weakness and vomiting. He had been seizure-free for several months. His girlfriend provides history. She states that the patient woke up early this morning, was walking towards the kitchen when he suddenly had ?twisting and nargis of his upper extremities, he fell to the ground and had generalized seizure activity for about 3 or 4 minutes. He was foaming at the mouth and not responding. He did not have any urinary incontinence. EMS was called and patient remained unconscious until paramedics arrived, approximately 10 minutes. The last thing the patient remembers is arriving to the emergency department on the stretcher. He reports a generalized headache. MD complaint: seizure Onset (ago): hour(s) Description of Episode: tonic-clonic movement Duration of episode: 3 Witnessed: Yes - by Bystander Trauma: No Seizure History: Yes Place: Home Possible Precipitating Event: none Associated symptoms: denies other symptoms Treatments prior to arrival: none Related Data Previous Rx's Medication Instructions Recorded levetiracetam 500 mg tablet 500 mg PO BID #60 tabs 03/05/21 (Keppra) levetiracetam 500 mg tablet 500 mg PO BID #60 tabs 06/12/21 (Keppra) levetiracetam 500 mg tablet 500 mg PO BID #60 tabs 01/14/22 (Keppra) Allergies Allergy/AdvReac Type Severity Reaction Status Date / Time No Known Allergies Allergy Unverified 11/21/19 18:12 Review of Systems Review of Systems: Constitutional: No Fever, No Chills ENT/Mouth: No sore throat, No Rhinorrhea Eyes: No Eye Pain, No Swelling, No Redness Cardiovascular: No Chest Pain, No SOB Respiratory: No Cough, No Sputum, No Wheezing, No dyspnea Gastrointestinal: No Nausea, No Vomiting, No Diarrhea, No abdominal Pain Genitourinary: No Dysuria, No Urinary Frequency, No Hematuria Musculoskeletal: No joint pain, No Myalgias Skin: No Skin Lesions, No rash Neuro: No Weakness, No Numbness, No Dizziness, + Headache Psych: No Anxiety/Panic, No Depression Heme/Lymph: No Bruising, No Lymphadenopathy Endocrine: No Polyuria, No Polydipsia PMFSH Social History Social History Advance Directives: No Advance Directives Information Provided: Yes Physical Exam Vital Signs: Vital Signs: Last Vital Signs Temp 97.8 F 01/14/22 12:48 Pulse 84 01/14/22 12:48 Resp 18 01/14/22 12:48 BP 116/78 01/14/22 12:48 Pulse Ox 95 01/14/22 12:48 O2 Del Method 01/14/22 12:48 BMI result Body Mass Index 24.6 Appearance: Alert. Oriented X3. No acute distress. Head: atraumatic, normocephalic Eyes: Pupils equal, round and reactive to light. ENT: Pharynx normal. Neck: Normal inspection. Neck supple. No midline tenderness. CVS: Normal heart rate and rhythm. Pulses normal. Respiratory: No respiratory distress. Breath sounds normal. Abdomen: Soft and nontender. +BS x4 Skin: Skin warm and dry. Normal skin color. Normal skin turgor. No rashes. Extremities: No lower extremity edema. Neuro: Oriented X 3. No motor deficit. No sensory deficit. Course Course Course Narrative: 31-year-old male with history of seizures previously on Keppra 500 b.i.d. who presents to the ER for evaluation of a witnessed tonic-clonic seizure at home today, approximately 3-4 minutes in duration with a fall and head strike. He has not taking Keppra in the last 6-7 weeks. Patient is neurologically intact and appropriate on arrival. He reports a generalized severe headache. He has never seen a neurologist for his seizure workup. He would like to get started on a different antiseizure medication due to the adverse side effects of Keppra. Will check his basic lab workup and get a CT of his head given trauma and head strike. 1 g of Keppra has been ordered IV. Reevaluation(s) Reevaluation #1: Labs only showing very mild rhabdomyolysis. He was given 1 L of IV fluids. Electrolytes are within normal limits. He remains alert and oriented. CT head is unremarkable. We discussed the importance of medication compliance. We also discussed the importance of Neuro follow-up. Will have him call our neurologist here to arrange for an appointment for further evaluation and workup. Patient agrees to plan. Stable for DC home. Medications Administered Discontinued Medications Generic Name Dose Route Start Last Admin Trade Name Rafael PRN Reason Stop Dose Admin Lactated Ringer's 1,000 mls @ 999 mls/hr 01/14/22 13:00 01/14/22 14:05 Lr IV 01/14/22 14:00 999 mls/hr .Q1H1M NATASHA Administration Levetiracetam 1,000 mg in 100 mls @ 400 mls/hr 01/14/22 12:58 01/14/22 14:25 Keppra IV 01/14/22 13:12 Infused ONCE ONE Infusion MDM - Seizure Lab Data Result diagrams: 01/14/22 14:46 01/14/22 14:46 Labs: Lab Results 01/14/22 01/14/22 Range/Units 14:46 14:46 WBC 10.7 (4.8-10.8) X10*3/uL RBC 5.44 (4.60-5.80) X10*6/uL Hgb 15.8 (14.0-18.0) g/dl Hct 47.1 (42.0-52.0) % MCV 86.6 (80.0-98.0) fL MCH 29.0 (27.0-33.0) pg MCHC 33.5 (31.0-36.0) g/dl RDW 12.9 (11.0-16.0) % Plt Count 188 (160-400) X10*3/uL MPV 11.8 (9.4-12.4) fL Immature Gran % (Auto) 0.3 (0.0-0.4) % Neut % (Auto) 78.3 H (45-73) % Lymph % (Auto) 11.5 L (20-40) % [place] % (Auto) 7.8 (2-11) % Eos % (Auto) 1.6 (0-4) % Baso % (Auto) 0.5 (0-2) % Lymph # (Auto) 1.2 (1.2-4.9) X10*3/uL [place] # (Auto) 0.8 (0.1-1.2) X10*3/uL Eos # (Auto) 0.2 (0.0-0.4) X10*3/uL Baso # (Auto) 0.1 (0.0-0.2) X10*3/uL Abs Immat Gran (auto) 0.03 (0.00-0.03) X10*3/uL Absolute Neuts (auto) 8.3 (2.0-8.3) x10*3/uL Absolute Nucleated RBC 0.000 (0.0-0.012) X10*3/uL Nucleated RBC % (auto) 0.0 (0.0-0.2) /100WBC Sodium 138 (135-145) mmol/L Potassium 4.3 (3.3-5.1) mmol/L Chloride 105 (96-108) mmol/L Carbon Dioxide 24 (22-29) mmol/L Anion Gap 13 (12-20) BUN 10 (9-16) mg/dL Creatinine 0.80 (0.5-1.4) mg/dL Estim Creat Clear Calc 146.8 Estimated GFR > 60 Random Glucose 87 (60-115) mg/dL Calcium 9.5 (8.4-10.2) mg/dL Magnesium 2.2 (1.6-2.6) mg/dL Total Bilirubin 0.3 (0.0-1.0) mg/dL Direct Bilirubin < 0.2 (0.0-0.5) mg/dL AST 35 (5-37) U/L ALT 47 H (0-40) U/L Alkaline Phosphatase 97 (39-117) U/L Total Creatine Kinase 340 H (38-174) U/L Total Protein 7.3 (6.5-8.0) g/dL Albumin 4.3 (3.5-5.0) g/dL Ethyl Alcohol < 10 mg/dL Critical Care Time Critical Care Time Critical Care Time: No Discharge Plan Discharge Clinical Impression: Recurrent seizures Patient Disposition: Home, Self-Care Instructions: Recurrent Seizures in Adults (ED) Additional Instructions: Your lab workup today was unremarkable. Your CT scan was normal. It is very important that you comply with the Keppra medication to help prevent seizures. It is important that you follow-up with Neurology for a full seizure workup. Call the office on Monday to arrange an appointment, you may not be able to be seen for a couple of months. Ask if you can be put on a call out list. A prescription for Keppra has been sent to your pharmacy for 2 months. Prescriptions: New levetiracetam [Keppra] 500 mg tablet 500 mg PO BID Qty: 60 1RF No Action levetiracetam [Keppra] 500 mg tablet 500 mg PO BID Qty: 60 0RF levetiracetam [Keppra] 500 mg tablet 500 mg PO BID Qty: 60 0RF Referrals: [facility] [place] Neuro/Sleep [Provider Group] (Recurrent seizures, initiated on Keppra by ER provider. Never had EEG or MRI.) Stand Alone Forms: Work/School Release
--- NOTE | 2022-01-14 13:02 | PC.NURSE ---
PT A&Ox3, does not remember having a seizure. witnessed by significant other. Reports 6/10 headache.
[2022-01-14] MEDS: levETIRAcetam in NaCl (iso-os) 1,000 MG/100 ML PIGGYBACK 400 MG IV (13:09)
[2022-01-14] MEDS: Lactated Ringers 1,000 ML 999 ML IV (14:05)
[2022-01-14 14:50] LABS: MANUAL DIFF FLAG NO
[2022-01-14 14:53] LABS: Basophils Absolute Auto 0.1 X10*3/uL (0.0-0.2); Basophils Percent Auto 0.5 % (0-2); Eosinophils Absolute Auto 0.2 X10*3/uL (0.0-0.4); Eosinophils Percent Auto 1.6 % (0-4); Hematocrit 47.1 % (42.0-52.0); Hemoglobin 15.8 g/dl (14.0-18.0); Imm Gran Abs Auto 0.03 X10*3/uL (0.00-0.03); Imm Gran Pct Auto 0.3 % (0.0-0.4); Lymphocytes Absolute Auto 1.2 X10*3/uL (1.2-4.9); Lymphocytes Percent Auto 11.5 % (20-40); Mean Corpuscular HGB Conc 33.5 g/dl (31.0-36.0); Mean Corpuscular Volume 86.6 fL (80.0-98.0); Mean Platelet Volume 11.8 fL (9.4-12.4); Monocytes Absolute Auto 0.8 X10*3/uL (0.1-1.2); Monocytes Percent Auto 7.8 % (2-11); Neutrophils Absolute Auto 8.3 x10*3/uL (2.0-8.3); Neutrophils Percent Auto 78.3 % (45-73); Platelet Count 188 X10*3/uL (160-400); Red Blood Count 5.44 X10*6/uL (4.60-5.80); Red Cell Distribution Width 12.9 % (11.0-16.0); White Blood Count 10.7 X10*3/uL (4.8-10.8)
[2022-01-14 15:28] LABS: Alanine Aminotransferase 47 U/L (0-40); Albumin Level 4.3 g/dL (3.5-5.0); Alkaline Phosphatase 97 U/L (39-117); Anion Gap 13 (12-20); Aspartate Amino Transferase 35 U/L (5-37); Bilirubin Direct < 0.2 mg/dL (0.0-0.5); Bilirubin Total 0.3 mg/dL (0.0-1.0); Blood Urea Nitrogen 10 mg/dL (9-16); Calcium 9.5 mg/dL (8.4-10.2); Carbon Dioxide 24 mmol/L (22-29); Chloride 105 mmol/L (96-108); Creatinine Clr Calc Pharmacy 146.8; Estimated Glomerular Filt Rate > 60; Ethanol < 10 mg/dL; Glucose Random 87 mg/dL (60-115); Magnesium 2.2 mg/dL (1.6-2.6); Potassium 4.3 mmol/L (3.3-5.1); Sodium 138 mmol/L (135-145); Total Protein 7.3 g/dL (6.5-8.0)
[2022-01-14 16:00] VITALS: BP 126/85; PULSE 70; RESP 17; TEMP 36.7; O2SAT 97
== END 2022-01-14 16:11 | disposition home or self-care (01) ==
PROVIDERS: Physician Assistant; Emergency Provider Emergency Medicine
DX: R56.9 Unspecified convulsions (principal); R51.9 Headache, unspecified; Z79.899 Other long term (current) drug therapy
CPT/HCPCS: 36415; 70450; 80048; 80076; 82077; 82550; 83735; 85025; 96361; 96365; 99284; J1953

== ENCOUNTER 2022-02-23 20:39 | Emergency (ER) | payer MEDICAID, SELFPAY ==
--- NOTE | ~2022-02-23 | CT_ITS ---
EXAMINATION: CT ANGIOGRAM OF THE CHEST WITH AND WITHOUT CONTRAST (CT PULMONARY ANGIOGRAM FOR PE) CLINICAL INFORMATION: Reason for Exam + dimer cp COMPARISON: None TECHNIQUE: Prior to contrast administration, noncontrast localization images were obtained. Subsequently, multidetector volumetric imaging was performed from the thoracic inlet to below the diaphragms following the administration of 65 mL Omnipaque 350 intravenous contrast. No contrast reaction reported Sagittal, coronal, and MIP oblique sagittal reformatted images were obtained on the CT workstation, uploaded to PACS, and reviewed. This CT examination was performed using dose optimization techniques as appropriate, variously including the following: *Automated exposure control *Adjustment of mA and/or kV according to patient size (this includes techniques or standardized protocols for targeted exams where dose is matched to indication/reason for exam; i.e. extremities or head) *Use of iterative reconstruction technique Total exam dose-length product 336 mGy-cm FINDINGS: QUALITY OF STUDY/CONTRAST BOLUS: Satisfactory. PULMONARY ARTERIES: No central or segmental pulmonary emboli. THORACIC AORTA: No aneurysm or dissection. LUNG: There is moderately extensive groundglass opacity within the right upper, middle, and lower lobes. Less extensive groundglass opacity is seen in the left lower lobe. PLEURA: No pleural effusion or pneumothorax. MEDIASTINUM: Visualized thyroid gland appears unremarkable. There are subcentimeter mediastinal lymph nodes within the range of normal variation. Cardiac size is within normal limits; no pericardial effusion. No evidence of septal bowing or right heart strain. CHEST WALL/AXILLA: No axillary or internal mammary lymphadenopathy. OSSEOUS STRUCTURES: No acute or suspicious osseous abnormality. UPPER ABDOMEN: Unremarkable. No reflux of contrast into the hepatic veins to suggest elevated right heart pressures. CT/CT angio chest PE protocol IMPRESSION: 1. No pulmonary embolus identified. 2. Moderately extensive groundglass opacities in the right lung and to a lesser extent in the left lower lobe, suspicious for pneumonia. 3. In the proper clinical setting, asymmetric edema could have a similar appearance. VTE: negative
--- NOTE | ~2022-02-23 | CT_ITS ---
EXAMINATION: CT HEAD WITHOUT CONTRAST CLINICAL INFORMATION: Seizure. COMPARISON: None TECHNIQUE: Contiguous axial imaging was performed from the skull base to vertex without intravenous administration of contrast. This CT examination was performed using dose optimization techniques as appropriate, variously including the following: *Automated exposure control *Adjustment of mA and/or kV according to patient size (this includes techniques or standardized protocols for targeted exams where dose is matched to indication/reason for exam; i.e. extremities or head) *Use of iterative reconstruction technique DLP: 720 mGy-cm FINDINGS: There is no acute intra-axial, extra-axial bleed, masses or midline shift. No acute infarction evolution. There is no edema. The lateral ventricles are symmetrical in size and configuration without enlargement. Bone windows reveal no calvarial abnormality. There is no scalp soft tissue abnormality either. Bilateral paranasal sinuses and mastoid air cells are well-aerated. Small polyp or retention cyst seen in left maxillary sinus. CT/CT head/brain wo IV con IMPRESSION: 1. No acute intracranial process seen. 2. Small polyp or retention cyst left maxillary sinus.
[2022-02-23 20:52] VITALS: BP 134/97; PULSE 92; RESP 18; TEMP 36.4; O2SAT 94; BMI 27.3
--- NOTE | 2022-02-23 21:10 | ED_ITS ---
HPI - Seizure General Chief Complaint: Seizure Stated Complaint: SEIZURE Time Seen by Provider: 02/23/22 21:08 Source: patient and EMS Mode of arrival: EMS Limitations: no limitations History of Present Illness HPI Narrative: This is a 31-year-old male past medical history significant for epilepsy presenting to the emergency department for a tonic-clonic seizure that lasted 1- 2 minutes and was witnessed by . Patient tells me that he has not had a seizure in a month or so He tells me he used to be taking Keppra 500 mg twice a day, he tells me when he was on it he had no seizures. He tells me because he had not had a seizure in such a long time he decided to stop taking his medication about a month ago. Patient is scheduled to see a neurologist soon he tells me but has never seen one before. Not followed by PCP. Patient did not fall and hit his head. Patient tells me he feels fine now. He does tell me before he had the seizure he had some substernal non radiating chest pain which he is having a hard time describing. Also tells me he has been having a dry cough. Denies shortness of breath, nausea, vomiting, headache, vision changes, dizziness, weakness, abdominal pain. Seizure History: Yes Related Data Previous Rx's Medication Instructions Recorded levetiracetam 500 mg tablet 500 mg PO BID #60 tabs 03/05/21 (Keppra) levetiracetam 500 mg tablet 500 mg PO BID #60 tabs 06/12/21 (Keppra) levetiracetam 500 mg tablet 500 mg PO BID #60 tabs 01/14/22 (Keppra) albuterol sulfate 90 mcg/actuation 2 inh inhalation Q4-6H PRN 02/23/22 breath activated powder inhaler shortness of breath or wheezing #1 ea azithromycin 250 mg tablet See Rx Instructions PO .COMPLEX #6 02/23/22 tabs levetiracetam 500 mg tablet 500 mg PO BID #60 tabs 02/23/22 (Keppra) prednisone 20 mg tablet 40 mg PO DAILY 5 days #10 tabs 02/23/22 Allergies Allergy/AdvReac Type Severity Reaction Status Date / Time No Known Allergies Allergy Unverified 11/21/19 18:12 Review of Systems Review of Systems: Constitutional : No Weight loss, No Fever, No Chills, No Fatigue, No Malaise ENT/Mouth : No sore throat, No Rhinorrhea Eyes: No Eye Pain, No Swelling, No Redness Cardiovascular : No Chest Pain, No SOB, No Dyspnea on Exertion, No Orthopnea, No Edema, No Palpitations Respiratory : + Cough, No Sputum, No Wheezing Gastrointestinal : No Nausea, No Vomiting, No Diarrhea, No Constipation, No abdominal Pain, No Hematochezia, No Melena Genitourinary : No Dysuria, No Urinary Frequency, No Hematuria, Musculoskeletal : No joint pain, No Myalgias, No Joint Swelling Skin : No Skin Lesions, No rash Neuro : No Weakness, No Numbness, No Dizziness, No Headache Psych : No Anxiety/Panic, No Depression All other systems reviewed and are negative Yes all other systems are reviewed and are negative [facility] Past Medical History Attestation statement: The following information was validated with the patient. Source: old records reviewed and nursing notes reviewed Social History Social History Alcohol intake: current Alcohol intake frequency: holidays/special occasions only Smoked in Last 30 Days: No Use of substances other than those prescribed or required for medical reasons: No Advance Directives: No Advance Directives Information Provided: No Physical Exam Vital Signs: Vital Signs: Last Vital Signs Temp 97.5 F 02/23/22 20:52 Pulse 92 02/23/22 20:52 Resp 18 02/23/22 20:52 BP 134/97 H 02/23/22 20:52 Pulse Ox 94 02/23/22 20:52 O2 Del Method 02/23/22 20:52 BMI result Body Mass Index 27.3 vss Appearance: Alert.? Oriented X3.? No acute distress.? Head: Normocephalic, atraumatic, no step-offs or deformities Eyes: Pupils equal, round and reactive to light.? ENT: Pharynx normal.? Neck: Normal inspection.? Neck supple.? CVS: Normal heart rate and rhythm.? Pulses normal.? Respiratory: No respiratory distress.? Breath sounds normal.? Abdomen: Soft and nontender.? Skin: Skin warm and dry.? Normal skin color.? Normal skin turgor.? Extremities: No lower extremity edema.? No calf ttp. 5/5 strength to bilateral upper and lower extremities Neuro: Oriented X 3.? No motor deficit.? No sensory deficit. CN 2-12 intact GCS of 15. NIH stroke scale 0 Course Reevaluation(s) Reevaluation #1: CBC appears to be within normal limits . Chemistry with no acute findings requiring intervention. Troponin negative. D-dimer positive could be reactive to seizure-like activity however due to chest pain will obtain CTA to rule out PE. Patient does have a negative Chandrika sign bilaterally, very low suspicion for DVT to lower extremities, no swelling or history of DVT. Flu/COVID/RSV negative. Head CT with no acute findings. CT of the chest pending. Patient continues to have no seizure-like activity while in the department. Time: 22:56 Reevaluation #2: CT with no signs of PE, concerns for possible viral pneumonia. At this time patient will be discharged home with PCP follow-up and Neurology follow-up. I did provide him with a sheet of paper that shows PCPs in the area for him to call and establish care with a PCP. Educated patient on diagnosis and treatment plan, answered all question, patient verbalizes understanding. At this time patient will be discharged home, advised to return with new or worsening symptoms. Educated on worrisome signs and symptoms and when to return. At this time I feel comfortable discharge home. Time: 00:49 Medications Administered Discontinued Medications Generic Name Dose Route Start Last Admin Trade Name Rafael PRN Reason Stop Dose Admin Levetiracetam 1,000 mg in 100 mls @ 400 mls/hr 02/23/22 21:08 02/23/22 22:05 Keppra IV 02/23/22 21:22 Infused ONCE ONE Infusion Iohexol 100 ml 02/23/22 22:49 02/23/22 22:50 Iohexol 350 Mg/Ml 100 Ml Infus..Btl IV 02/23/22 22:50 65 ml ONCE ONE Administration Lorazepam 2 mg 02/23/22 21:08 02/23/22 21:35 Lorazepam 1 Mg Tablet PO 02/23/22 21:09 2 mg ONCE ONE Administration Medical Decision Making Medical Decision Making [facility] Narrative: 2113 31-year-old male presents to the emergency department status post witnessed tonic-clonic seizure. Reports recently stopping his Keppra. Physical exam benign. GCS of 15. NIH stroke scale 0. Likely seizure secondary to non med compliance. Unlikely secondary to infection or stressor. No head trauma. Low suspicion for stroke, posterior stroke, intracranial hemorrhage. Cough likely viral. Plan at this time basic labs, CT of the head. Will give him a 1000 mg of Keppra IV. Will also give him Ativan. In placed on seizure precautions. Lab Data Result Diagrams: 02/23/22 21:57 02/23/22 21:57 Labs: Lab Results 02/23/22 02/23/22 02/23/22 Range/Units 21:57 21:57 21:57 WBC 8.8 (4.8-10.8) X10*3/uL RBC 5.52 (4.60-5.80) X10*6/uL Hgb 16.2 (14.0-18.0) g/dl Hct 47.1 (42.0-52.0) % MCV 85.3 (80.0-98.0) fL MCH 29.3 (27.0-33.0) pg MCHC 34.4 (31.0-36.0) g/dl RDW 12.6 (11.0-16.0) % Plt Count 187 (160-400) X10*3/uL MPV 11.9 (9.4-12.4) fL Immature Gran % (Auto) 0.5 H (0.0-0.4) % Neut % (Auto) 78.7 H (45-73) % Lymph % (Auto) 13.9 L (20-40) % [place] % (Auto) 5.2 (2-11) % Eos % (Auto) 1.4 (0-4) % Baso % (Auto) 0.3 (0-2) % Lymph # (Auto) 1.2 (1.2-4.9) X10*3/uL [place] # (Auto) 0.5 (0.1-1.2) X10*3/uL Eos # (Auto) 0.1 (0.0-0.4) X10*3/uL Baso # (Auto) 0.0 (0.0-0.2) X10*3/uL Abs Immat Gran (auto) 0.04 H (0.00-0.03) X10*3/uL Absolute Neuts (auto) 6.9 (2.0-8.3) x10*3/uL Absolute Nucleated RBC 0.000 (0.0-0.012) X10*3/uL Nucleated RBC % (auto) 0.0 (0.0-0.2) /100WBC D-Dimer High Sensitivty 417 NG/ML Sodium 137 (135-145) mmol/L Potassium 4.4 (3.3-5.1) mmol/L Chloride 104 (96-108) mmol/L Carbon Dioxide 27 (22-29) mmol/L Anion Gap 10 L (12-20) BUN 12 (9-16) mg/dL Creatinine 0.83 (0.5-1.4) mg/dL Estim Creat Clear Calc 124.7 Estimated GFR > 60 Random Glucose 94 (60-115) mg/dL Calcium 9.7 (8.4-10.2) mg/dL Magnesium 2.1 (1.6-2.6) mg/dL Total Bilirubin 0.5 (0.0-1.0) mg/dL AST 25 (5-37) U/L ALT 35 (0-40) U/L Alkaline Phosphatase 104 (39-117) U/L Troponin I High Sens (<3.5-35.0) ng/L Total Protein 7.1 (6.5-8.0) g/dL Albumin 4.3 (3.5-5.0) g/dL Influenza Type A (PCR) (Negative) Influenza Type B (PCR) (Negative) RSV RNA Qual (PCR) (Negative) SARS-CoV-2 RNA (RT-PCR) (Negative) 02/23/22 02/23/22 Range/Units 21:57 21:58 WBC (4.8-10.8) X10*3/uL RBC (4.60-5.80) X10*6/uL Hgb (14.0-18.0) g/dl Hct (42.0-52.0) % MCV (80.0-98.0) fL MCH (27.0-33.0) pg MCHC (31.0-36.0) g/dl RDW (11.0-16.0) % Plt Count (160-400) X10*3/uL MPV (9.4-12.4) fL Immature Gran % (Auto) (0.0-0.4) % Neut % (Auto) (45-73) % Lymph % (Auto) (20-40) % [place] % (Auto) (2-11) % Eos % (Auto) (0-4) % Baso % (Auto) (0-2) % Lymph # (Auto) (1.2-4.9) X10*3/uL [place] # (Auto) (0.1-1.2) X10*3/uL Eos # (Auto) (0.0-0.4) X10*3/uL Baso # (Auto) (0.0-0.2) X10*3/uL Abs Immat Gran (auto) (0.00-0.03) X10*3/uL Absolute Neuts (auto) (2.0-8.3) x10*3/uL Absolute Nucleated RBC (0.0-0.012) X10*3/uL Nucleated RBC % (auto) (0.0-0.2) /100WBC D-Dimer High Sensitivty NG/ML Sodium (135-145) mmol/L Potassium (3.3-5.1) mmol/L Chloride (96-108) mmol/L Carbon Dioxide (22-29) mmol/L Anion Gap (12-20) BUN (9-16) mg/dL Creatinine (0.5-1.4) mg/dL Estim Creat Clear Calc Estimated GFR Random Glucose (60-115) mg/dL Calcium (8.4-10.2) mg/dL Magnesium (1.6-2.6) mg/dL Total Bilirubin (0.0-1.0) mg/dL AST (5-37) U/L ALT (0-40) U/L Alkaline Phosphatase (39-117) U/L Troponin I High Sens 4.4 (<3.5-35.0) ng/L Total Protein (6.5-8.0) g/dL Albumin (3.5-5.0) g/dL Influenza Type A (PCR) NEGATIVE (Negative) Influenza Type B (PCR) NEGATIVE (Negative) RSV RNA Qual (PCR) NEGATIVE (Negative) SARS-CoV-2 RNA (RT-PCR) NEGATIVE (Negative) Critical Care Time Critical Care Time Critical Care Time: No Discharge Plan Discharge Clinical Impression: Seizure, Pneumonia Patient Disposition: Home, Self-Care Instructions: Recurrent Seizures in Adults (ED), Pneumonia (ED) Additional Instructions: Take your medications as prescribed. If you were prescribed antibiotics today, it is important that you take your medication to their entirety, do not skip any doses, do not finish them early. Follow-up with your primary care provider this week. ( gave you information for PCPs below) Follow-up with Neurology. Return to the emergency department with new or worsening symptoms. Such as fevers, chills, chest pain, shortness of breath, nausea, vomiting, dizziness, headache, vision changes, lethargy In case of emergency call 911 Please do not stop taking your medications. By law you need to stop driving for at least 6 months or until medically cleared by a neurologist . [facility] [phone] CT/CT angio chest PE protocol IMPRESSION: 1.? No pulmonary embolus identified. 2.? Moderately extensive groundglass opacities in the right lung and to a lesser extent in the left lower lobe, suspicious for pneumonia. 3.? In the proper clinical setting, asymmetric edema could have a similar appearance. ? VTE: negative CT/CT head/brain wo IV con IMPRESSION: 1.? No acute intracranial process seen. 2.? Small polyp or retention cyst left maxillary sinus. Prescriptions: New levetiracetam [Keppra] 500 mg tablet 500 mg PO BID Qty: 60 1RF azithromycin 250 mg tablet See Rx Instructions .ROUTE .COMPLEX Qty: 6 0RF Rx Instructions: For 250 mg dose pack: take 500 mg today (day 1), then 250 mg for 4 days (days 2-5) prednisone 20 mg tablet 40 mg PO DAILY 5 Days Qty: 10 0RF albuterol sulfate 90 mcg/actuation aerosol powdr breath activated 2 inh inhalation Q4-6H PRN (Reason: shortness of breath or wheezing) Qty: 1 0RF No Action levetiracetam [Keppra] 500 mg tablet 500 mg PO BID Qty: 60 0RF levetiracetam [Keppra] 500 mg tablet 500 mg PO BID Qty: 60 0RF levetiracetam [Keppra] 500 mg tablet 500 mg PO BID Qty: 60 1RF Referrals: [facility] [place] Family Medicine [Provider Group] - 1 day [facility] [place] Primary Care, Melissa [Provider Group] - 1 day [facility] [place] Neuro/Sleep [Provider Group] - 2 days ED Physician,Generic [Physician] - Stand Alone Forms: Work/School Release
[2022-02-23] MEDS: LORazepam 1 MG TABLET 2 MG PO (21:35)
[2022-02-23] MEDS: levETIRAcetam in NaCl (iso-os) 1,000 MG/100 ML PIGGYBACK 400 MG IV (21:36)
[2022-02-23 22:04] LABS: Basophils Percent Auto 0.3 % (0-2); Eosinophils Absolute Auto 0.1 X10*3/uL (0.0-0.4); Eosinophils Percent Auto 1.4 % (0-4); Hematocrit 47.1 % (42.0-52.0); Hemoglobin 16.2 g/dl (14.0-18.0); Imm Gran Abs Auto 0.04 X10*3/uL (0.00-0.03); Imm Gran Pct Auto 0.5 % (0.0-0.4); Lymphocytes Absolute Auto 1.2 X10*3/uL (1.2-4.9); Lymphocytes Percent Auto 13.9 % (20-40); MANUAL DIFF FLAG NO; Mean Corpuscular HGB Conc 34.4 g/dl (31.0-36.0); Mean Corpuscular Hemoglobin 29.3 pg (27.0-33.0); Mean Corpuscular Volume 85.3 fL (80.0-98.0); Mean Platelet Volume 11.9 fL (9.4-12.4); Monocytes Absolute Auto 0.5 X10*3/uL (0.1-1.2); Monocytes Percent Auto 5.2 % (2-11); Neutrophils Absolute Auto 6.9 x10*3/uL (2.0-8.3); Neutrophils Percent Auto 78.7 % (45-73); Platelet Count 187 X10*3/uL (160-400); Red Blood Count 5.52 X10*6/uL (4.60-5.80); Red Cell Distribution Width 12.6 % (11.0-16.0); White Blood Count 8.8 X10*3/uL (4.8-10.8)
[2022-02-23 22:11] LABS: D Dimer High Sensitivity 417 NG/ML
[2022-02-23 22:27] LABS: Alanine Aminotransferase 35 U/L (0-40); Albumin Level 4.3 g/dL (3.5-5.0); Alkaline Phosphatase 104 U/L (39-117); Anion Gap 10 (12-20); Aspartate Amino Transferase 25 U/L (5-37); Bilirubin Total 0.5 mg/dL (0.0-1.0); Blood Urea Nitrogen 12 mg/dL (9-16); Calcium 9.7 mg/dL (8.4-10.2); Carbon Dioxide 27 mmol/L (22-29); Chloride 104 mmol/L (96-108); Creatinine Clr Calc Pharmacy 124.7; Estimated Glomerular Filt Rate > 60; Glucose Random 94 mg/dL (60-115); Magnesium 2.1 mg/dL (1.6-2.6); Potassium 4.4 mmol/L (3.3-5.1); Sodium 137 mmol/L (135-145); Total Protein 7.1 g/dL (6.5-8.0)
[2022-02-23 22:34] LABS: Troponin-I High Sensitivity 4.4 ng/L (<3.5-35.0)
[2022-02-23 22:41] LABS: Influenza A PCR NEGATIVE (Negative); Influenza B PCR NEGATIVE (Negative); Resp Syncy Virus RNA Qual PCR NEGATIVE (Negative); SARS COV2 PCR INHOUSE NEGATIVE (Negative)
[2022-02-23] MEDS: iohexoL 350 MG/ML 100 ML INFUS..BTL IV (22:50)
--- NOTE | 2022-02-23 22:55 | ECG_ITS ---
Test Reason : SERIZURE Blood Pressure : / mmHG Vent. Rate : 083 BPM Atrial Rate : 083 BPM P-R Int : 120 ms QRS Dur : 082 ms QT Int : 342 ms P-R-T Axes : 041 -10 036 degrees QTc Int : 401 ms Normal sinus rhythm Normal ECG When compared with ECG of 11-JUN-2021 21:53, No significant change was found Referred By: Alannah Richardson Electronically Signed By:Aman Camacho
[2022-02-24 01:27] LABS: Troponin-I High Sensitivity 10.8 ng/L (<3.5-35.0)
== END 2022-02-24 01:15 | disposition home or self-care (01) ==
PROVIDERS: Physician Assistant; Emergency Provider Emergency Medicine
DX: G40.909 Epilepsy, unspecified, not intractable, without status epilepticus (principal); J18.9 Pneumonia, unspecified organism; Z91.14 Patient's other noncompliance with medication regimen; Z20.822 Contact with and (suspected) exposure to COVID-19
CPT/HCPCS: 0241U; 36415; 70450; 71275; 80053; 83735; 84484; 85025; 85379; 93005; 96365; 99284; J1953; Q9967

== ENCOUNTER 2022-04-25 12:53 | Outpatient (REF) | payer MEDICAID, SELFPAY ==
--- NOTE | ~2022-04-25 | MR_ITS ---
EXAMINATION: MR BRAIN WITHOUT CONTRAST CLINICAL INFORMATION: Seizures. Evaluate for structural abnormality. COMPARISON: None. TECHNIQUE: Multiplanar, multisequence imaging of the brain was acquired on a 3 Cecy magnet without intravenous administration of contrast. FINDINGS: No diffusion abnormalities are identified to suggest an acute infarct. The ventricles are normal in size. No mass effect or midline shift is seen. No brain parenchymal signal abnormality is noted. No extra-axial fluid collections are seen. The brainstem and cerebellum are normal. No focal cortical dysplasia or migrational abnormality is seen. The hippocampi are normal in appearance. The gradient refocused acquisition demonstrates no pathologic magnetic susceptibility artifact to indicate underlying acute or chronic blood products. The craniovertebral junction, marrow signal, and midline structures are normal. The orbits and pituitary axis appear normal. The major intracranial flow voids at the level of the [place] of [place] are preserved. The dural venous sinus flow voids are maintained. The mastoid air cells are well aerated. There are small retention cysts in the maxillary sinuses and mild ethmoid sinus mucosal thickening. MR/MR head/brain wo con IMPRESSION: Normal MRI of the brain. No hippocampal pathology. No identifiable epileptogenic focus.
== END 2022-04-25 12:54 | disposition home or self-care (01) ==
LOC: HO.MRI 12:53
PROVIDERS: Visit Provider Internal Medicine
DX: G40.89 Other seizures (principal)
CPT/HCPCS: 70551

== ENCOUNTER 2022-06-05 15:45 | Emergency (ER) | payer MEDICAID, SELFPAY ==
--- NOTE | ~2022-06-05 | XR_ITS ---
EXAMINATION: XR LUMBOSACRAL SPINE CLINICAL INFORMATION: Low back pain COMPARISON: None available. TECHNIQUE: Three views of the lumbosacral spine. FINDINGS: The vertebral bodies and posterior elements are normal. The disc spaces are preserved and the vertebral alignment is normal. The paraspinal soft tissues are normal. XR/XR lumbar spine 2-3V IMPRESSION: Unremarkable examination.
--- NOTE | ~2022-06-05 | XR_ITS ---
EXAMINATION: XR CHEST CLINICAL INFORMATION: Seizure. COMPARISON: None available. TECHNIQUE: 2 views of the chest were obtained. FINDINGS: No significant abnormality is noted involving the heart, lungs, mediastinum, bony thorax or soft tissues. XR/XR chest 2V IMPRESSION: Unremarkable chest examination.
[2022-06-05 15:53] VITALS: BP 115/72; BP 144/70; PULSE 102; PULSE 88; RESP 16; TEMP 36.4; O2SAT 95; BMI 25.8
--- NOTE | 2022-06-05 16:07 | ED.SEIZURE ---
HPI - Seizure General Chief Complaint: Seizure Stated Complaint: seizure Time Seen by Provider: 06/05/22 15:57 Source: patient, RN notes reviewed and old records reviewed Mode of arrival: EMS Limitations: no limitations History of Present Illness HPI Narrative: This is a [id number]-male, with a past medical history of seizures, who presents to the emergency department via EMS, with complaints of two witnessed seizures today. Patient states that he forgot to take his anti-seizure medication today. Patient states that all he remembered was having two seizures today while he was lying in bed. He does not remember what happened before and during the seizure. Patient also reporting back pain which he reports that he has had for 1 year after diving into a [place], never was medically evaluated after this incident. Nurse spoke to girlfriend who stated that he did take his dose, Keppra 500mg this morning. Girlfriend states that patient did not hit his head, had no recent falls. Girlfriend states that patient has had to reschedule neurology appointment 3 times as he has had trouble with his insurance. Girlfriend informed nurse that patient does not have a hx of back pain. MD complaint: seizure Onset (ago): day(s) Description of Episode: loss of consciousness and tonic-clonic movement Witnessed: Yes - by Other (girlfriend) Trauma: No Seizure History: Yes Place: Home Possible Precipitating Event: none Associated symptoms: denies other symptoms Treatments prior to arrival: none Related Data Previous Rx's Medication Instructions Recorded levetiracetam 500 mg tablet 500 mg PO BID #60 tabs 03/05/21 (Keppra) levetiracetam 500 mg tablet 500 mg PO BID #60 tabs 06/12/21 (Keppra) levetiracetam 500 mg tablet 500 mg PO BID #60 tabs 01/14/22 (Keppra) albuterol sulfate 90 mcg/actuation 2 inh inhalation Q4-6H PRN 02/23/22 breath activated powder inhaler shortness of breath or wheezing #1 ea azithromycin 250 mg tablet See Rx Instructions PO .COMPLEX #6 02/23/22 tabs levetiracetam 500 mg tablet 500 mg PO BID #60 tabs 02/23/22 (Keppra) prednisone 20 mg tablet 40 mg PO DAILY 5 days #10 tabs 02/23/22 Allergies Allergy/AdvReac Type Severity Reaction Status Date / Time No Known Allergies Allergy Unverified 11/21/19 18:12 Review of Systems Review of Systems: Yes all other systems are reviewed and are negative [facility] Past Medical History Attestation statement: The following information was validated with the patient. Social History Social History Alcohol intake: current Alcohol intake frequency: holidays/special occasions only Smoked in Last 30 Days: No Use of substances other than those prescribed or required for medical reasons: Yes Substance Use Type: Marijuana Substance Use Frequency: Occasionally Advance Directives: No Advance Directives Information Provided: No Physical Exam Vital Signs: Vital Signs: Last Vital Signs Temp 97.5 F 06/05/22 15:53 Pulse 73 06/05/22 16:57 Resp 16 06/05/22 16:57 BP 110/65 06/05/22 16:57 Pulse Ox 95 06/05/22 15:53 O2 Del Method Room Air 06/05/22 15:53 BMI result Body Mass Index 25.8 Appearance: Alert. Oriented X3. No acute distress. Eyes: Pupils equal, round and reactive to light. EOMI ENT: Pharynx normal. Oral pharynx is nonerythematous, nonedematous, uvula is midline. Neck: Normal inspection. Neck supple. CVS: Normal heart rate and rhythm. Pulses normal. Respiratory: No respiratory distress. Breath sounds normal. Lungs clear to auscultation bilaterally, no wheezes, rhonchi or rales. Abdomen: Soft and nontender. +BS x4 Skin: Skin warm and dry. Normal skin color. Normal skin turgor. No rashes. Extremities: No lower extremity edema. Tenderness to palpation overlying the midline lumbar spine and paraspinous muscles. Good range of motion. Neuro: Oriented X 3. No motor deficit. No sensory deficit. CN II-XII intact. Course Reevaluation(s) Reevaluation #1: Lactic acid 3.6, likely due to seizure. CPK mildly elevated at 377. Pt given 1L IV fluids. Patient is afebrile, and vital signs are WNL. Patient has a normal white count. No recent illnesses, unlikely due to infectious etiology. Will obtain chest x-ray to rule out aspiration pneumonia and urinalysis. Time: 16:54 Reevaluation #2: Chest x-ray normal. UA still pending. Patient requesting pain medication for back pain, given Toradol 30mg IM. Time: 18:03 Reevaluation #3: UA negative for infx. Discussed at length that patient needs to follow up with PCP (as this is who has been managing seizures) tomorrow as he may need to increase Keppra dose. Patient understands and agrees with plan. Patient feeling better and would like to be discharged home. Given precautions on when to return. Stable for discharge. Time: 18:29 Medications Administered Discontinued Medications Generic Name Dose Route Start Last Admin Trade Name Freq PRN Reason Stop Dose Admin Sodium Chloride 1,000 mls @ 999 mls/hr 06/05/22 16:52 06/05/22 18:39 Ns IVCONT 06/05/22 17:52 Infused .Q1H1M ONE Infusion Ketorolac Tromethamine 30 mg 06/05/22 18:02 06/05/22 18:12 Ketorolac Tromethamine 30 Mg/Ml Vial IM 06/05/22 18:03 30 mg ONCE ONE Administration Medical Decision Making Medical Decision Making [facility] Narrative: 31 y/o M, hx of seizures, who presents to the emergency department for 3 seizures which occurred today. Pt currently has headache and back pain. He states that he has had no recent illnesses. Per girlfriend, pt had 3 witnessed seizures lasting 2-3 minutes each. He did take his Keppra dose per girlfriend, pt states that he did. It appears that patient's seizures are being managed by his primary care physician, Dr. Johnson. No head strike or neuro deficits found on exam today, head CT deferred at this time. Plan: EKG, labs, lumbar spine x-ray ordered. Differential Diagnosis Differential Diagnoses: The differential diagnosis associated with the presentation includes rhabdo, seizure, electrolyte abnormality, ICH - unlikely, UTI, pneumonia Lab Data [facility] Lab Attestation statement: I reviewed the patient's lab results. 06/05/22 16:29 06/05/22 16:29 Labs: Lab Results 06/05/22 06/05/22 06/05/22 Range/Units 16:29 16:29 16:29 WBC 16.4 H (4.8-10.8) X10*3/uL RBC 5.98 H (4.60-5.80) X10*6/uL Hgb 17.6 (14.0-18.0) g/dl Hct 50.3 (42.0-52.0) % MCV 84.1 (80.0-98.0) fL MCH 29.4 (27.0-33.0) pg MCHC 35.0 (31.0-36.0) g/dl RDW 12.7 (11.0-16.0) % Plt Count 220 (160-400) X10*3/uL MPV 12.2 (9.4-12.4) fL Immature Gran % (Auto) 0.4 (0.0-0.4) % Neut % (Auto) 89.0 H (45-73) % Lymph % (Auto) 5.2 L (20-40) % [place] % (Auto) 4.9 (2-11) % Eos % (Auto) 0.2 (0-4) % Baso % (Auto) 0.3 (0-2) % Lymph # (Auto) 0.9 L (1.2-4.9) X10*3/uL [place] # (Auto) 0.8 (0.1-1.2) X10*3/uL Eos # (Auto) 0.0 (0.0-0.4) X10*3/uL Baso # (Auto) 0.1 (0.0-0.2) X10*3/uL Abs Immat Gran (auto) 0.06 H (0.00-0.03) X10*3/uL Absolute Neuts (auto) 14.6 H (2.0-8.3) x10*3/uL Absolute Nucleated RBC 0.000 (0.0-0.012) X10*3/uL Nucleated RBC % (auto) 0.0 (0.0-0.2) /100WBC Sodium 138 (135-145) mmol/L Potassium 4.2 (3.3-5.1) mmol/L Chloride 105 (96-108) mmol/L Carbon Dioxide 21 L (22-29) mmol/L Anion Gap 16 (12-20) BUN 14 (9-16) mg/dL Creatinine 1.13 (0.5-1.4) mg/dL Estim Creat Clear Calc 97.7 Estimated GFR > 60 Random Glucose 88 (60-115) mg/dL Lactic Acid (0.5-2.0) mmol/L Lactic Acid F/U @ 2Hr (0.5-2.0) mmol/L Calcium 9.5 (8.4-10.2) mg/dL Magnesium 2.4 (1.6-2.6) mg/dL Total Bilirubin 0.7 (0.0-1.0) mg/dL Direct Bilirubin 0.2 (0.0-0.5) mg/dL AST 27 (5-37) U/L ALT 29 (0-40) U/L Alkaline Phosphatase 96 (39-117) U/L Total Creatine Kinase 377 H (38-174) U/L Total Protein 7.6 (6.5-8.0) g/dL Albumin 4.7 (3.5-5.0) g/dL Urine Color Urine Appearance Urine pH (5.0-9.0) Ur Specific [place] (1.005-1.025) Urine Protein (Neg-Trace) mg/dL Urine Glucose (UA) (Negative) mg/dL Urine Ketones (Negative) mg/dL Urine Blood (Negative) Urine Nitrite (Negative) Ur Leukocyte Esterase (Negative) Urine RBC (0-2) /HPF Urine WBC (0-5) /HPF Ur Squamous Epith Cells (0-2) /HPF Urine Bacteria (None Seen) Hyaline Casts (0-2) /LPF Ethyl Alcohol mg/dL Influenza Type A (PCR) NEGATIVE (Negative) Influenza Type B (PCR) NEGATIVE (Negative) RSV RNA Qual (PCR) NEGATIVE (Negative) SARS-CoV-2 RNA (RT-PCR) NEGATIVE (Negative) 06/05/22 06/05/22 06/05/22 Range/Units 16:29 16:29 18:07 WBC (4.8-10.8) X10*3/uL RBC (4.60-5.80) X10*6/uL Hgb (14.0-18.0) g/dl Hct (42.0-52.0) % MCV (80.0-98.0) fL MCH (27.0-33.0) pg MCHC (31.0-36.0) g/dl RDW (11.0-16.0) % Plt Count (160-400) X10*3/uL MPV (9.4-12.4) fL Immature Gran % (Auto) (0.0-0.4) % Neut % (Auto) (45-73) % Lymph % (Auto) (20-40) % [place] % (Auto) (2-11) % Eos % (Auto) (0-4) % Baso % (Auto) (0-2) % Lymph # (Auto) (1.2-4.9) X10*3/uL [place] # (Auto) (0.1-1.2) X10*3/uL Eos # (Auto) (0.0-0.4) X10*3/uL Baso # (Auto) (0.0-0.2) X10*3/uL Abs Immat Gran (auto) (0.00-0.03) X10*3/uL Absolute Neuts (auto) (2.0-8.3) x10*3/uL Absolute Nucleated RBC (0.0-0.012) X10*3/uL Nucleated RBC % (auto) (0.0-0.2) /100WBC Sodium (135-145) mmol/L Potassium (3.3-5.1) mmol/L Chloride (96-108) mmol/L Carbon Dioxide (22-29) mmol/L Anion Gap (12-20) BUN (9-16) mg/dL Creatinine (0.5-1.4) mg/dL Estim Creat Clear Calc Estimated GFR Random Glucose (60-115) mg/dL Lactic Acid 3.6 H* (0.5-2.0) mmol/L Lactic Acid F/U @ 2Hr (0.5-2.0) mmol/L Calcium (8.4-10.2) mg/dL Magnesium (1.6-2.6) mg/dL Total Bilirubin (0.0-1.0) mg/dL Direct Bilirubin (0.0-0.5) mg/dL AST (5-37) U/L ALT (0-40) U/L Alkaline Phosphatase (39-117) U/L Total Creatine Kinase (38-174) U/L Total Protein (6.5-8.0) g/dL Albumin (3.5-5.0) g/dL Urine Color Yellow Urine Appearance Clear Urine pH 6.0 (5.0-9.0) Ur Specific [place] 1.025 (1.005-1.025) Urine Protein 30 (1+) H (Neg-Trace) mg/dL Urine Glucose (UA) Negative (Negative) mg/dL Urine Ketones 15 (Negative) mg/dL Urine Blood Negative (Negative) Urine Nitrite Negative (Negative) Ur Leukocyte Esterase Negative (Negative) Urine RBC 0-2 (0-2) /HPF Urine WBC 0-5 (0-5) /HPF Ur Squamous Epith Cells 3-5 (0-2) /HPF Urine Bacteria None Seen (None Seen) Hyaline Casts 0-2 (0-2) /LPF Ethyl Alcohol < 10 mg/dL Influenza Type A (PCR) (Negative) Influenza Type B (PCR) (Negative) RSV RNA Qual (PCR) (Negative) SARS-CoV-2 RNA (RT-PCR) (Negative) 06/05/22 Range/Units 18:40 WBC (4.8-10.8) X10*3/uL RBC (4.60-5.80) X10*6/uL Hgb (14.0-18.0) g/dl Hct (42.0-52.0) % MCV (80.0-98.0) fL MCH (27.0-33.0) pg MCHC (31.0-36.0) g/dl RDW (11.0-16.0) % Plt Count (160-400) X10*3/uL MPV (9.4-12.4) fL Immature Gran % (Auto) (0.0-0.4) % Neut % (Auto) (45-73) % Lymph % (Auto) (20-40) % [place] % (Auto) (2-11) % Eos % (Auto) (0-4) % Baso % (Auto) (0-2) % Lymph # (Auto) (1.2-4.9) X10*3/uL [place] # (Auto) (0.1-1.2) X10*3/uL Eos # (Auto) (0.0-0.4) X10*3/uL Baso # (Auto) (0.0-0.2) X10*3/uL Abs Immat Gran (auto) (0.00-0.03) X10*3/uL Absolute Neuts (auto) (2.0-8.3) x10*3/uL Absolute Nucleated RBC (0.0-0.012) X10*3/uL Nucleated RBC % (auto) (0.0-0.2) /100WBC Sodium (135-145) mmol/L Potassium (3.3-5.1) mmol/L Chloride (96-108) mmol/L Carbon Dioxide (22-29) mmol/L Anion Gap (12-20) BUN (9-16) mg/dL Creatinine (0.5-1.4) mg/dL Estim Creat Clear Calc Estimated GFR Random Glucose (60-115) mg/dL Lactic Acid (0.5-2.0) mmol/L Lactic Acid F/U @ 2Hr 1.3 (0.5-2.0) mmol/L Calcium (8.4-10.2) mg/dL Magnesium (1.6-2.6) mg/dL Total Bilirubin (0.0-1.0) mg/dL Direct Bilirubin (0.0-0.5) mg/dL AST (5-37) U/L ALT (0-40) U/L Alkaline Phosphatase (39-117) U/L Total Creatine Kinase (38-174) U/L Total Protein (6.5-8.0) g/dL Albumin (3.5-5.0) g/dL Urine Color Urine Appearance Urine pH (5.0-9.0) Ur Specific [place] (1.005-1.025) Urine Protein (Neg-Trace) mg/dL Urine Glucose (UA) (Negative) mg/dL Urine Ketones (Negative) mg/dL Urine Blood (Negative) Urine Nitrite (Negative) Ur Leukocyte Esterase (Negative) Urine RBC (0-2) /HPF Urine WBC (0-5) /HPF Ur Squamous Epith Cells (0-2) /HPF Urine Bacteria (None Seen) Hyaline Casts (0-2) /LPF Ethyl Alcohol mg/dL Influenza Type A (PCR) (Negative) Influenza Type B (PCR) (Negative) RSV RNA Qual (PCR) (Negative) SARS-CoV-2 RNA (RT-PCR) (Negative) Independent Interpretation I performed an independent interpretation of an: Plain X-Ray Interpretation: LS spine x-ray reviewed, normal vertebral alignment, agree with radiology report. Radiology Impression Discussion of test interpretation with radiology: I have reviewed the radiologist's reading. Radiologist Impression: EXAMINATION: XR LUMBOSACRAL SPINE CLINICAL INFORMATION: Low back pain COMPARISON: None available. TECHNIQUE: Three views of the lumbosacral spine. FINDINGS: The vertebral bodies and posterior elements are normal. The disc spaces are preserved and the vertebral alignment is normal. The paraspinal soft tissues are normal. XR/XR lumbar spine 2-3V IMPRESSION: Unremarkable examination. Dictated By: Zaid Mijares MD Discharge Plan Discharge Clinical Impression: Seizure Patient Disposition: Home, Self-Care Instructions: Acute Low Back Pain (ED), Recurrent Seizures in Adults (ED) Additional Instructions: Your chest and lumbar spine x-ray were normal today. It is unclear what had triggered your seizure, but call your primary care physician tomorrow as you may need to increase your Keppra dose. Take ibuprofen/tylenol as needed for back pain. Gentle stretching, and heat/ice can help with pain. Please follow up with neurology as they can better manage your symptoms. If any new or worsening symptoms occur, please return for re-evaluation. Prescriptions: No Action levetiracetam [Keppra] 500 mg tablet 500 mg PO BID Qty: 60 0RF levetiracetam [Keppra] 500 mg tablet 500 mg PO BID Qty: 60 0RF levetiracetam [Keppra] 500 mg tablet 500 mg PO BID Qty: 60 1RF levetiracetam [Keppra] 500 mg tablet 500 mg PO BID Qty: 60 1RF azithromycin 250 mg tablet See Rx Instructions .ROUTE .COMPLEX Qty: 6 0RF Rx Instructions: For 250 mg dose pack: take 500 mg today (day 1), then 250 mg for 4 days (days 2-5) prednisone 20 mg tablet 40 mg PO DAILY 5 Days Qty: 10 0RF albuterol sulfate 90 mcg/actuation aerosol powdr breath activated 2 inh inhalation Q4-6H PRN (Reason: shortness of breath or wheezing) Qty: 1 0RF Referrals: Ceci Alicea MD [Physician] - Interventions: ED Discharge Assessment Last Done: 06/05/22 19:55 Discharge Date/Time: 06/05/22 19:55
--- NOTE | 2022-06-05 16:13 | PC.NURSE ---
Noemi reports pt takes Keppra 500BID and he did take his morning dose (pt reported he did not take his dose) pts gf reprots pt had 3 seizures today, then started complaining of severe back pain
[2022-06-05 16:34] LABS: MANUAL DIFF FLAG NO
[2022-06-05 16:36] LABS: Basophils Absolute Auto 0.1 X10*3/uL (0.0-0.2); Basophils Percent Auto 0.3 % (0-2); Eosinophils Percent Auto 0.2 % (0-4); Hematocrit 50.3 % (42.0-52.0); Hemoglobin 17.6 g/dl (14.0-18.0); Imm Gran Abs Auto 0.06 X10*3/uL (0.00-0.03); Imm Gran Pct Auto 0.4 % (0.0-0.4); Lymphocytes Absolute Auto 0.9 X10*3/uL (1.2-4.9); Lymphocytes Percent Auto 5.2 % (20-40); Mean Corpuscular Hemoglobin 29.4 pg (27.0-33.0); Mean Corpuscular Volume 84.1 fL (80.0-98.0); Mean Platelet Volume 12.2 fL (9.4-12.4); Monocytes Absolute Auto 0.8 X10*3/uL (0.1-1.2); Monocytes Percent Auto 4.9 % (2-11); Neutrophils Absolute Auto 14.6 x10*3/uL (2.0-8.3); Platelet Count 220 X10*3/uL (160-400); Red Blood Count 5.98 X10*6/uL (4.60-5.80); Red Cell Distribution Width 12.7 % (11.0-16.0); White Blood Count 16.4 X10*3/uL (4.8-10.8)
[2022-06-05 16:50] LABS: Alanine Aminotransferase 29 U/L (0-40); Albumin Level 4.7 g/dL (3.5-5.0); Alkaline Phosphatase 96 U/L (39-117); Anion Gap 16 (12-20); Aspartate Amino Transferase 27 U/L (5-37); Bilirubin Direct 0.2 mg/dL (0.0-0.5); Bilirubin Total 0.7 mg/dL (0.0-1.0); Blood Urea Nitrogen 14 mg/dL (9-16); Calcium 9.5 mg/dL (8.4-10.2); Carbon Dioxide 21 mmol/L (22-29); Chloride 105 mmol/L (96-108); Creatinine Clr Calc Pharmacy 97.7; Estimated Glomerular Filt Rate > 60; Glucose Random 88 mg/dL (60-115); Magnesium 2.4 mg/dL (1.6-2.6); Potassium 4.2 mmol/L (3.3-5.1); Sodium 138 mmol/L (135-145); Total Protein 7.6 g/dL (6.5-8.0)
[2022-06-05 16:52] LABS: Lactic Acid 3.6 mmol/L (0.5-2.0)
[2022-06-05 16:57] VITALS: BP 110/65; PULSE 73; RESP 16
[2022-06-05 16:58] LABS: Ethanol < 10 mg/dL
[2022-06-05] MEDS: 0.9 % Sodium Chloride 1,000 ML 999 ML IVCONT (16:59)
[2022-06-05 17:18] LABS: Influenza A PCR NEGATIVE (Negative); Influenza B PCR NEGATIVE (Negative); Resp Syncy Virus RNA Qual PCR NEGATIVE (Negative); SARS COV2 PCR INHOUSE NEGATIVE (Negative)
[2022-06-05] MEDS: Ketorolac Tromethamine 30 MG/ML VIAL IM (18:12)
[2022-06-05 18:13] LABS: Appearance Urine Clear; Color Urine Yellow; Glucose Urine UA Negative (Negative); Leukocyte Esterase Urine Negative (Negative); Nitrite Urine Negative (Negative); Specific Gravity - Urine 1.025 (1.005-1.025); UMIC TRIGGER UACC YES; Urine Blood Negative (Negative); Urine Ketones 15 mg/dL (Negative); Urine Protein 30 (1+) mg/dL (Neg-Trace)
[2022-06-05 18:15] LABS: Bacteria Urine None Seen (None Seen); Hyaline Casts Urine 0-2 /LPF (0-2); RBC Urine 0-2 /HPF (0-2); WBC Urine 0-5 /HPF (0-5)
[2022-06-05 18:32] LABS: Reflex Lactate? Lactic Acid Added
[2022-06-05 18:53] LABS: ~Lactic Acid-LAB USE ONLY 1.3 mmol/L (0.5-2.0)
== END 2022-06-05 19:55 | disposition home or self-care (01) ==
PROVIDERS: Physician Assistant Medical; Emergency Provider Emergency Medicine
DX: R56.9 Unspecified convulsions (principal); Z20.822 Contact with and (suspected) exposure to COVID-19; Z20.828 Contact with and (suspected) exposure to other viral communicable diseases; Z79.899 Other long term (current) drug therapy
CPT/HCPCS: 0241U; 36415; 71046; 72100; 80048; 80076; 81001; 82077; 82550; 83605; 83735; 85025; 96360; 96372; 99284; J1885

== ENCOUNTER 2022-08-12 05:02 | Emergency (ER) | payer MEDICAID, SELFPAY ==
--- NOTE | ~2022-08-12 | XR_ITS ---
EXAMINATION: XR CHEST CLINICAL INFORMATION: Rule out pneumonia COMPARISON: 06/05/2022 TECHNIQUE: Frontal view of the chest was obtained. FINDINGS: Cardiac leads overlie the chest. The lungs are well expanded. There is no focal consolidation, edema, or effusion. No pneumothorax. The cardiomediastinal silhouette is within normal limits. No acute osseous abnormality. XR/XR chest 1V IMPRESSION: No acute pulmonary disease.
[2022-08-12 05:06] VITALS: BP 117/69; PULSE 80; RESP 18; TEMP 36.4; O2SAT 96; BMI 28.6
--- NOTE | 2022-08-12 05:11 | ECG_ITS ---
Test Reason : SZ Blood Pressure : / mmHG Vent. Rate : 074 BPM Atrial Rate : 074 BPM P-R Int : 106 ms QRS Dur : 080 ms QT Int : 366 ms P-R-T Axes : -12 007 026 degrees QTc Int : 406 ms Sinus rhythm with short [place] Otherwise normal ECG When compared with ECG of 23-FEB-2022 23:08, No significant change was found Referred By: Ivana Carranza Electronically Signed By:Aman Camacho
--- NOTE | 2022-08-12 05:16 | ED_ITS ---
HPI - Neuro Symptoms/Deficit General Chief Complaint: Seizure Stated Complaint: seizure Time Seen by Provider: 08/12/22 05:06 Source: patient Mode of arrival: EMS Limitations: no limitations History of Present Illness HPI Narrative: Patient comes to the emergency room complaining of a seizure. Patient takes Keppra 1000 mg twice a day. Patient had 2 witnessed seizures by his girlfriend. The girlfriend states the patient had 2 tonic-clonic seizures. Patient does not remember anything. Patient states he is compliant with his medication. Patient has no complaints at this time other than feeling tired Related Data Previous Rx's Medication Instructions Recorded levetiracetam 500 mg tablet 500 mg PO BID #60 tabs 03/05/21 (Keppra) levetiracetam 500 mg tablet 500 mg PO BID #60 tabs 06/12/21 (Keppra) levetiracetam 500 mg tablet 500 mg PO BID #60 tabs 01/14/22 (Keppra) albuterol sulfate 90 mcg/actuation 2 inh inhalation Q4-6H PRN 02/23/22 breath activated powder inhaler shortness of breath or wheezing #1 ea azithromycin 250 mg tablet See Rx Instructions PO .COMPLEX #6 02/23/22 tabs levetiracetam 500 mg tablet 500 mg PO BID #60 tabs 02/23/22 (Keppra) prednisone 20 mg tablet 40 mg PO DAILY 5 days #10 tabs 02/23/22 Allergies Allergy/AdvReac Type Severity Reaction Status Date / Time No Known Allergies Allergy Verified 08/12/22 05:11 Review of Systems Review of Systems: Constitutional : No Weight loss, No Fever, No Chills, No Night Sweats, No Fatigue, No Malaise ENT/Mouth : No Hearing loss, No Ear Pain, No Nasal Congestion, No Sinus Pain, No Hoarseness, No sore throat, No Rhinorrhea, No Swallowing Difficulty Eyes: No Eye Pain, No Swelling, No Redness, No Foreign Body, No Discharge, No Vision Changes Cardiovascular : No Chest Pain, No SOB, No Dyspnea on Exertion, No Orthopnea, No Edema, No Palpitations Respiratory : No Cough, No Sputum, No Wheezing, No Smoke Exposure, No Dyspnea Gastrointestinal : No Nausea, No Vomiting, No Diarrhea, No Constipation, No abdominal Pain, No Hematochezia, No Melena Genitourinary : no irregular bleeding, No Dysuria, No Urinary Frequency, No Hematuria, No Urinary Incontinence, No Urgency, No Flank Pain, No Urinary Flow Changes, No Hesitancy Musculoskeletal : No joint pain, No Myalgias, No Joint Swelling Skin : No Skin Lesions, No rash Neuro : No Weakness, No Numbness, No Paresthesias, No Loss of Consciousness, No Dizziness, No Headache, patient had multiple seizures today Psych : No Anxiety/Panic, No Depression, No SI/HI/AH/VH, No Social Issues, Heme/Lymph: No Bruising, No Bleeding,No Lymphadenopathy Endocrine : No Polyuria, No Polydipsia, No Temperature Intolerance [facility] Past Medical History Medical History (Updated 08/12/22 @ 06:34 by Ivana Carranza MD) Seizure disorder Social History Social History Alcohol intake: current Alcohol intake frequency: holidays/special occasions only Substance Use Type: Marijuana Advance Directives: No Advance Directives Information Provided: Yes Physical Exam Vital Signs: Vital Signs: Last Vital Signs Temp 97.5 F 08/12/22 05:06 Pulse 71 08/12/22 05:24 Resp 17 08/12/22 05:24 BP 107/80 08/12/22 05:24 Pulse Ox 96 08/12/22 05:24 O2 Del Method Room Air 08/12/22 05:24 BMI result Body Mass Index 28.6 Const: Other: Appearance: Alert. Oriented X3. No acute distress. Eyes: Pupils equal, round and reactive to light. ENT: Pharynx normal. Neck: Normal inspection. Neck supple. No lymph nodes noted. No crepitus CVS: Normal heart rate and rhythm. Pulses normal. Normal S1 and S2 Respiratory: No respiratory distress. Breath sounds normal. No Wheezing. No rales Abdomen: Soft and nontender. No rigidity. No distention. Skin: Skin warm and dry. Normal skin color. Normal skin turgor. Extremities: No lower extremity edema. No Lacerations. No Rash Neuro: Oriented X 3. No motor deficit. No sensory deficit. Moving all extremities. No slurred speech. CN 2 through 12 grossly intact Psych: calm, cooperative, normal affect Medications Administered Generic Name Dose Route Start Last Admin Trade Name Freq PRN Reason Stop Dose Admin Sodium Chloride 1,000 mls @ 999 mls/hr 08/12/22 06:04 08/12/22 06:43 Ns IVCONT 08/12/22 07:04 999 mls/hr .Q1H1M ONE Administration Discontinued Medications Generic Name Dose Route Start Last Admin Trade Name Rafael PRN Reason Stop Dose Admin Sodium Chloride 1,000 mls @ 999 mls/hr 08/12/22 05:10 08/12/22 06:23 Ns IVCONT 08/12/22 06:10 Infused .Q1H1M ONE Infusion Levetiracetam 1,500 mg in 100 mls @ 400 mls/hr 08/12/22 05:22 08/12/22 05:45 Keppra IV 08/12/22 05:36 Infused ONCE ONE Infusion Medical Decision Making Medical Decision Making [facility] Narrative: -patient's lactic acid is 7.2, secondary to the seizure. Sepsis not suspected. Patient receiving IV fluids -chest x-ray does not show any acute abnormalities -urinalysis pending -I discussed the patient with Dr. Hernandez, patient to be admitted. Urinalysis pending -sign out given to Dr. Steele Admission/Observation Consideration of admission/observation: Escalation of care including admission/observation considered Consult Healthcare Provider Management of the patient was discussed with: Hospitalist Lab Data [facility] Lab Attestation statement: I reviewed the patient's lab results. 08/12/22 05:20 08/12/22 05:20 Labs: Lab Results 08/12/22 08/12/22 08/12/22 Range/Units 05:14 05:20 05:20 WBC 6.8 (4.8-10.8) X10*3/uL RBC 5.89 H (4.60-5.80) X10*6/uL Hgb 17.2 (14.0-18.0) g/dl Hct 50.9 (42.0-52.0) % MCV 86.4 (80.0-98.0) fL MCH 29.2 (27.0-33.0) pg MCHC 33.8 (31.0-36.0) g/dl RDW 13.2 (11.0-16.0) % Plt Count 191 (160-400) X10*3/uL MPV 12.2 (9.4-12.4) fL Immature Gran % (Auto) Cancelled Neut % (Auto) Cancelled Lymph % (Auto) Cancelled [place] % (Auto) Cancelled Eos % (Auto) Cancelled Baso % (Auto) Cancelled Lymph # (Auto) Cancelled [place] # (Auto) Cancelled Eos # (Auto) Cancelled Baso # (Auto) Cancelled Abs Immat Gran (auto) Cancelled Absolute Neuts (auto) Cancelled Absolute Nucleated RBC 0.000 (0.0-0.012) X10*3/uL Nucleated RBC % (auto) 0.0 (0.0-0.2) /100WBC Neutrophils % (Manual) 48 (45-73) % Band Neutrophils % 2 L (3-5) % Lymphocytes % (Manual) 39 (20-40) % Monocytes % (Manual) 7 (2-11) % Eosinophils % (Manual) 3 (0-4) % Basophils % (Manual) 1 (0-2) % Abs Neuts (Manual) 3.4 (2.0-8.3) X10*3/uL Lymphocytes # (Manual) 2.7 (1.2-4.9) X10*3/uL Monocytes # (Manual) 0.5 (0.1-1.2) X10*3/uL Eosinophils # (Manual) 0.2 (0.0-0.4) X10*3/uL Basophils # (Manual) 0.1 (0.0-0.2) X10*3/uL Smudge Cells PRESENT Toxic Vacuolation PRESENT Platelet Estimate SLIGHTLY DECREASED (NORMAL) Large Platelets PRESENT Plt Morphology Comment NORMAL RBC Morphology NORMAL PT (10.0-13.1) SEC INR (0.9-1.1) Sodium 141 (135-145) mmol/L Potassium 3.8 (3.3-5.1) mmol/L Chloride 107 (96-108) mmol/L Carbon Dioxide 20 L (22-29) mmol/L Anion Gap 18 (12-20) BUN 10 (9-16) mg/dL Creatinine 1.15 (0.5-1.4) mg/dL Estim Creat Clear Calc 92.7 Estimated GFR > 60 POC Glucose 134 H (60-115) mg/dL Random Glucose 107 (60-115) mg/dL Lactic Acid (0.5-2.0) mmol/L Calcium 9.8 (8.4-10.2) mg/dL Magnesium 2.1 (1.6-2.6) mg/dL Total Bilirubin 0.5 (0.0-1.0) mg/dL Direct Bilirubin 0.1 (0.0-0.5) mg/dL AST 28 (5-37) U/L ALT 40 (0-40) U/L Alkaline Phosphatase 101 (39-117) U/L Troponin I High Sens (<3.5-35.0) ng/L Total Protein 7.5 (6.5-8.0) g/dL Albumin 4.5 (3.5-5.0) g/dL Ethyl Alcohol mg/dL 08/12/22 08/12/22 08/12/22 Range/Units 05:20 05:20 05:20 WBC (4.8-10.8) X10*3/uL RBC (4.60-5.80) X10*6/uL Hgb (14.0-18.0) g/dl Hct (42.0-52.0) % MCV (80.0-98.0) fL MCH (27.0-33.0) pg MCHC (31.0-36.0) g/dl RDW (11.0-16.0) % Plt Count (160-400) X10*3/uL MPV (9.4-12.4) fL Immature Gran % (Auto) Neut % (Auto) Lymph % (Auto) [place] % (Auto) Eos % (Auto) Baso % (Auto) Lymph # (Auto) [place] # (Auto) Eos # (Auto) Baso # (Auto) Abs Immat Gran (auto) Absolute Neuts (auto) Absolute Nucleated RBC (0.0-0.012) X10*3/uL Nucleated RBC % (auto) (0.0-0.2) /100WBC Neutrophils % (Manual) (45-73) % Band Neutrophils % (3-5) % Lymphocytes % (Manual) (20-40) % Monocytes % (Manual) (2-11) % Eosinophils % (Manual) (0-4) % Basophils % (Manual) (0-2) % Abs Neuts (Manual) (2.0-8.3) X10*3/uL Lymphocytes # (Manual) (1.2-4.9) X10*3/uL Monocytes # (Manual) (0.1-1.2) X10*3/uL Eosinophils # (Manual) (0.0-0.4) X10*3/uL Basophils # (Manual) (0.0-0.2) X10*3/uL Smudge Cells Toxic Vacuolation Platelet Estimate (NORMAL) Large Platelets Plt Morphology Comment RBC Morphology PT 11.5 (10.0-13.1) SEC INR 1.0 (0.9-1.1) Sodium (135-145) mmol/L Potassium (3.3-5.1) mmol/L Chloride (96-108) mmol/L Carbon Dioxide (22-29) mmol/L Anion Gap (12-20) BUN (9-16) mg/dL Creatinine (0.5-1.4) mg/dL Estim Creat Clear Calc Estimated GFR POC Glucose (60-115) mg/dL Random Glucose (60-115) mg/dL Lactic Acid 7.2 H* (0.5-2.0) mmol/L Calcium (8.4-10.2) mg/dL Magnesium (1.6-2.6) mg/dL Total Bilirubin (0.0-1.0) mg/dL Direct Bilirubin (0.0-0.5) mg/dL AST (5-37) U/L ALT (0-40) U/L Alkaline Phosphatase (39-117) U/L Troponin I High Sens < 2.7 D (<3.5-35.0) ng/L Total Protein (6.5-8.0) g/dL Albumin (3.5-5.0) g/dL Ethyl Alcohol mg/dL 08/12/22 Range/Units 05:20 WBC (4.8-10.8) X10*3/uL RBC (4.60-5.80) X10*6/uL Hgb (14.0-18.0) g/dl Hct (42.0-52.0) % MCV (80.0-98.0) fL MCH (27.0-33.0) pg MCHC (31.0-36.0) g/dl RDW (11.0-16.0) % Plt Count (160-400) X10*3/uL MPV (9.4-12.4) fL Immature Gran % (Auto) Neut % (Auto) Lymph % (Auto) [place] % (Auto) Eos % (Auto) Baso % (Auto) Lymph # (Auto) [place] # (Auto) Eos # (Auto) Baso # (Auto) Abs Immat Gran (auto) Absolute Neuts (auto) Absolute Nucleated RBC (0.0-0.012) X10*3/uL Nucleated RBC % (auto) (0.0-0.2) /100WBC Neutrophils % (Manual) (45-73) % Band Neutrophils % (3-5) % Lymphocytes % (Manual) (20-40) % Monocytes % (Manual) (2-11) % Eosinophils % (Manual) (0-4) % Basophils % (Manual) (0-2) % Abs Neuts (Manual) (2.0-8.3) X10*3/uL Lymphocytes # (Manual) (1.2-4.9) X10*3/uL Monocytes # (Manual) (0.1-1.2) X10*3/uL Eosinophils # (Manual) (0.0-0.4) X10*3/uL Basophils # (Manual) (0.0-0.2) X10*3/uL Smudge Cells Toxic Vacuolation Platelet Estimate (NORMAL) Large Platelets Plt Morphology Comment RBC Morphology PT (10.0-13.1) SEC INR (0.9-1.1) Sodium (135-145) mmol/L Potassium (3.3-5.1) mmol/L Chloride (96-108) mmol/L Carbon Dioxide (22-29) mmol/L Anion Gap (12-20) BUN (9-16) mg/dL Creatinine (0.5-1.4) mg/dL Estim Creat Clear Calc Estimated GFR POC Glucose (60-115) mg/dL Random Glucose (60-115) mg/dL Lactic Acid (0.5-2.0) mmol/L Calcium (8.4-10.2) mg/dL Magnesium (1.6-2.6) mg/dL Total Bilirubin (0.0-1.0) mg/dL Direct Bilirubin (0.0-0.5) mg/dL AST (5-37) U/L ALT (0-40) U/L Alkaline Phosphatase (39-117) U/L Troponin I High Sens (<3.5-35.0) ng/L Total Protein (6.5-8.0) g/dL Albumin (3.5-5.0) g/dL Ethyl Alcohol < 10 mg/dL Radiology Impression Discussion of test interpretation with radiology: I have reviewed the radiologist's reading. Radiologist Impression: FINDINGS: Cardiac leads overlie the chest. The lungs are well expanded. There is no focal consolidation, edema, or effusion. No pneumothorax. The cardiomediastinal silhouette is within normal limits. No acute osseous abnormality. XR/XR chest 1V IMPRESSION: No acute pulmonary disease. Critical Care Time Critical Care Time Critical Care Time: Yes Total Critical Care Time: 60 Attestation: I have personally provided critical care time. Time includes review of lab data, radiology results, discussion with consultants, and monitoring for potential decompensation. Intervention performed as documented. Discharge Plan Discharge Clinical Impression: Generalized seizure Patient Disposition: Admitted As Inpatient
[2022-08-12] MEDS: 0.9 % Sodium Chloride 1,000 ML 999 ML IVCONT ×2 (05:22→06:43)
[2022-08-12 05:23] LABS: Glucose, Whole Blood 134 mg/dL (60-115)
[2022-08-12 05:24] VITALS: BP 107/80; PULSE 71; RESP 17; O2SAT 96
[2022-08-12 05:28] LABS: Hematocrit 50.9 % (42.0-52.0); Hemoglobin 17.2 g/dl (14.0-18.0); Mean Corpuscular HGB Conc 33.8 g/dl (31.0-36.0); Mean Corpuscular Hemoglobin 29.2 pg (27.0-33.0); Mean Corpuscular Volume 86.4 fL (80.0-98.0); Mean Platelet Volume 12.2 fL (9.4-12.4); Platelet Count 191 X10*3/uL (160-400); Red Blood Count 5.89 X10*6/uL (4.60-5.80); Red Cell Distribution Width 13.2 % (11.0-16.0)
[2022-08-12] MEDS: levETIRAcetam in NaCl (iso-os) 1,500 MG/100 ML PIGGYBACK 400 MG IV (05:30)
[2022-08-12 05:31] LABS: WBC ABN SCTR FOR CBC 1
[2022-08-12 05:33] LABS: Prothrombin Time 11.5 SEC (10.0-13.1)
[2022-08-12 05:44] LABS: Alanine Aminotransferase 40 U/L (0-40); Albumin Level 4.5 g/dL (3.5-5.0); Alkaline Phosphatase 101 U/L (39-117); Anion Gap 18 (12-20); Aspartate Amino Transferase 28 U/L (5-37); Bilirubin Direct 0.1 mg/dL (0.0-0.5); Bilirubin Total 0.5 mg/dL (0.0-1.0); Blood Urea Nitrogen 10 mg/dL (9-16); Calcium 9.8 mg/dL (8.4-10.2); Carbon Dioxide 20 mmol/L (22-29); Chloride 107 mmol/L (96-108); Creatinine Clr Calc Pharmacy 92.7; Estimated Glomerular Filt Rate > 60; Ethanol < 10 mg/dL; Glucose Random 107 mg/dL (60-115); Lactic Acid 7.2 mmol/L (0.5-2.0); Magnesium 2.1 mg/dL (1.6-2.6); Potassium 3.8 mmol/L (3.3-5.1); Sodium 141 mmol/L (135-145); Total Protein 7.5 g/dL (6.5-8.0)
[2022-08-12 05:51] LABS: Band Neutrophils Percent 2 % (3-5); Basophils Abs Manual 0.1 X10*3/uL (0.0-0.2); Basophils Percent Manual 1 % (0-2); Eosinophils Absolute Manual 0.2 X10*3/uL (0.0-0.4); Eosinophils Percent Manual 3 % (0-4); Large Platelet PRESENT; Lymphocytes Absolute Manual 2.7 X10*3/uL (1.2-4.9); Lymphocytes Percent Manual 39 % (20-40); Monocytes Absolute Manual 0.5 X10*3/uL (0.1-1.2); Monocytes Percent Manual 7 % (2-11); Neutrophils Absolute Manual 3.4 X10*3/uL (2.0-8.3); Neutrophils Percent Manual 48 % (45-73); Platelet Estimate SLIGHTLY DECREASED (NORMAL); Platelet Morphology Comment NORMAL; RBC Morphology NORMAL; Smudge Cells PRESENT; Toxic Vacuolation PRESENT; White Blood Count 6.8 X10*3/uL (4.8-10.8)
[2022-08-12 05:52] LABS: Troponin-I High Sensitivity < 2.7 ng/L (<3.5-35.0)
--- NOTE | 2022-08-12 07:12 | PC.NURSE ---
resumed care of patient this morning, he is current resting, seizure precautions in place, pt is currently sleeping, awaiting bed placement
[2022-08-12 07:26] LABS: Reflex Lactate? Lactic Acid Added
[2022-08-12 07:55] LABS: ~Lactic Acid-LAB USE ONLY 0.9 mmol/L (0.5-2.0)
[2022-08-12 09:01] LABS: Appearance Urine Clear; Color Urine Yellow; Glucose Urine UA Negative (Negative); Leukocyte Esterase Urine Negative (Negative); Nitrite Urine Negative (Negative); Specific Gravity - Urine 1.015 (1.005-1.025); UMIC TRIGGER UACC YES; Urine Blood Negative (Negative); Urine Ketones Negative (Negative); Urine Protein 30 (1+) mg/dL (Neg-Trace)
[2022-08-12 09:04] LABS: Bacteria Urine None Seen (None Seen); Hyaline Casts Urine 0-2 /LPF (0-2); RBC Urine 0-2 /HPF (0-2); Squamous Epithelial Cell Urine 0-2 /HPF (0-2); WBC Urine 0-5 /HPF (0-5)
[2022-08-12 09:11] LABS: Amphetamine Screen Urine Not Detected (Not Detect); Barbiturates, Urine Not Detected (Not Detect); Benzodiazepines Screen Urine Not Detected (Not Detect); Cannabinoid Screen Urine POSITIVE (Not Detect); Cocaine Screen Urine Not Detected (Not Detect); Fentanyl, urine Not Detected (Not Detect); Opiate Screen Urine Not Detected (Not Detect); Phencyclidine Screen Urine Not Detected (Not Detect)
== END 2022-08-12 10:38 | disposition home or self-care (01) ==
PROVIDERS: Emergency Provider Emergency Medicine; PCP Internal Medicine
DX: R56.9 Unspecified convulsions (principal); R53.1 Weakness; R94.31 Abnormal electrocardiogram [ECG] [EKG]; Z79.899 Other long term (current) drug therapy
CPT/HCPCS: 36415; 71045; 80048; 80076; 80307; 81001; 81003; 82947; 83605; 83735; 84484; 85007; 85027; 85610; 93005; 96361; 96374; 99284; 99285; J1953

== ENCOUNTER 2022-11-05 12:58 | Emergency (ER) | payer MEDICAID, SELFPAY ==
[2022-11-05 13:16] VITALS: BP 118/72; BP 132/74; PULSE 75; PULSE 88; RESP 16; TEMP 36.6; O2SAT 97; BMI 24.0
[2022-11-05 13:28] LABS: Glucose, Whole Blood 97 mg/dL (60-115)
--- NOTE | 2022-11-05 13:42 | ED.SEIZURE ---
HPI - Seizure General Chief Complaint: Seizure Stated Complaint: seizure Time Seen by Provider: 11/05/22 13:37 Source: patient and EMS Mode of arrival: EMS Limitations: no limitations History of Present Illness HPI Narrative: 32 yo male with a history of seizures on keppra 1g BID here with complaints of witnessed seizure 2-5 min per family with post ictal state after. Patient reports he forgot to take his evening dose of Keppra last night. He denies any recent illnesses. He tells me he has been sleeping well. His last seizure was 2 months ago and he is followed by Dr. Alicea from Neurology. He is complaining of body aches and mild headache but otherwise feels good. Seizure History: Yes Related Data Home Medications Medication Instructions Recorded Confirmed levetiracetam 1,000 mg tablet 1,000 mg PO BID 08/12/22 08/12/22 Previous Rx's Medication Instructions Recorded lorazepam 1 mg tablet (Ativan) 1 mg PO BEDTIME PRN sleep/seizure 08/12/22 #20 tabs Allergies Allergy/AdvReac Type Severity Reaction Status Date / Time No Known Allergies Allergy Verified 08/12/22 05:11 Review of Systems Review of Systems: Yes all other systems are reviewed and are negative Constitutional: Constitutional: Reports no additional constitutional complaints, Reports body ache(s), Denies chills, Denies fever(s), Denies headache(s) and Denies weakness Eyes: Eyes: Reports no additional eye complaints and Denies change in vision ENT: Reports system reviewed and no additional complaints, except as documented, Denies dizziness, Denies headache(s), Denies nasal congestion, Denies nasal discharge and Denies neck pain Cardiovascular: Cardiovascular: Reports no additional cardiovascular complaints, Denies chest pain, Denies leg edema and Denies dyspnea Respiratory: Respiratory: Reports no additional respiratory complaints, Denies cough and Denies dyspnea Gastrointestinal: Gastrointestinal: Reports no additional gastrointestinal complaints, Denies abdominal pain, Denies diarrhea, Denies nausea and Denies vomiting Genitourinary: Genitourinary: Denies urinary incontinence Musculoskeletal: Musculoskeletal: Reports no additional musculoskeletal complaints, Denies back pain, Denies arthralgias, Denies joint swelling, Denies neck pain, Denies numbness and Denies tingling Integumentary/Breasts: Skin/Breast: Reports system reviewed and no additional complaints, except as docu and Denies rash Neurologic: Reports system reviewed and no additional complaints, except as documented, Denies Abnormal speech present, Denies dizziness, Denies headache(s), Denies numbness, Reports seizure-like activity, Denies tingling and Denies weakness PMFSH Past Medical History Attestation statement: The following information was validated with the patient. Source: old records reviewed and nursing notes reviewed Medical History Seizure disorder Social History Social History Alcohol intake: current Alcohol intake frequency: does not drink Smoked in Last 30 Days: No Use of substances other than those prescribed or required for medical reasons: Yes Substance Use Type: Marijuana Advance Directives: No Advance Directives Information Provided: No Physical Exam Vital Signs: Vital Signs: Last Vital Signs Temp 97.8 F 11/05/22 13:16 Pulse 69 11/05/22 15:40 Resp 13 11/05/22 15:40 BP 115/72 11/05/22 15:40 Pulse Ox 98 11/05/22 15:40 O2 Del Method Room Air 11/05/22 15:40 BMI result Body Mass Index 24.0 Const: General: cooperative, healthy appearing, comfortable and no acute distress Orientation/consciousness: patient oriented x3 Limitations: no limitations HEENT: Head: Yes normal to inspection, No Robbins's sign and No raccoon eyes Ears: hearing grossly normal bilaterally General nose exam: Normal external nose present Face and sinus: Yes normal facial exam Mouth: Normal oral and palatal mucosa present Throat: Yes posterior oropharynx normal Eyes: General: appearance normal, both eyes and all related structures Pupils: Equal, round and reactive pupils present Neck: Neck: Yes normal visual inspection, Yes full ROM and Yes no lymphadenopathy Chest: Chest palpation & inspection: normal inspection of the chest Resp: Effort & Inspection: normal respiratory effort Auscultation: clear to auscultation bilaterally Cardio: Rate: regular rate Rhythm: regular rhythm Peripheral pulses: Peripheral pulses 2+ throughout GI: Inspection: Yes normal to inspection Palpation (GI): Soft to palpation and nontender Auscultation: normal bowel sounds Back/Spine/Pelvis: Thoracic/Lumbar Spine: thoracic and lumbar spine normal to inspection Skin: General skin exam: no rashes or lesions noted Neuro: General: patient oriented x3, moves all extremities, no focal motor deficits, normal sensation to monofilament and Unable to assess gait Cranial nerves: Yes CN's II-XII intact bilaterally, Yes Equal, round and reactive pupils present, Yes Bilaterally intact EOM present, Yes Nystagmus not present, Yes Normal facial strength present and Yes Midline tongue present Cognition (Neuro): normal cognition Speech: No Abnormal speech present Gait exam (Neuro): Unable to assess gait Motor exam (neuro): 5/5 motor strength present throughout Sensory Exam: Normal double simultaneous stimulation for sensation Extrem: General: Yes normal to inspection, Yes no pedal edema and Yes no calf tenderness Course Course Course Narrative: 1439-lactic acid is l elevated. This is from seizure activity and not from infection. We are giving fluids. Patient is unsure if he took his keppra this morning. We will give him his dose of Keppra now. Reevaluation(s) Reevaluation #1: 1530-patient is alert and oriented. Normal vital signs. Patient feels comfortable going home. We will have him go home and not miss any additional doses of his Keppra and follow up with his neurologist outpatient. Reviewed worrisome signs and symptoms of when to return to the emergency room. Comfortable plan for discharge home. Medications Administered Discontinued Medications Generic Name Dose Route Start Last Admin Trade Name Fidelq PRN Reason Stop Dose Admin Sodium Chloride 1,000 mls @ 999 mls/hr 11/05/22 13:40 11/05/22 15:49 Ns IV 11/05/22 14:40 Infused .Q1H1M STA Infusion Ketorolac Tromethamine 30 mg 11/05/22 13:40 11/05/22 14:38 Ketorolac Tromethamine 30 Mg/Ml Vial IVPUSH 11/05/22 13:41 Not Given ONCE ONE Levetiracetam 1,000 mg 11/05/22 14:32 11/05/22 14:38 Levetiracetam 1,000 Mg Tablet PO 11/05/22 14:33 1,000 mg ONCE ONE Administration Medical Decision Making Medical Decision Making MDM Narrative: 32 yo male with a history of seizures on keppra 1g BID here with complaints of witnessed seizure 2-5 min per family with post ictal state after.? Patient reports he forgot to take his evening dose of Keppra last night.? He denies any recent illnesses.? He tells me he has been sleeping well.? His last seizure was 2 months ago and he is followed by Dr. Alicea from Neurology.? He is complaining of body aches and mild headache but otherwise feels good. On arrival patient is alert oriented. Normal neuro exam with no focal findings. Will obtain labs, place patient on seizure precautions, monitor Differential Diagnosis Differential Diagnoses: The differential diagnosis associated with the presentation includes Seizure disorder Lab Data MDM Lab Attestation statement: I reviewed the patient's lab results. 11/05/22 13:58 11/05/22 13:58 Labs: Lab Results 11/05/22 11/05/22 11/05/22 Range/Units 13:22 13:58 13:58 WBC 6.6 (4.8-10.8) X10*3/uL RBC 5.81 H (4.60-5.80) X10*6/uL Hgb 17.1 (14.0-18.0) g/dl Hct 49.6 (42.0-52.0) % MCV 85.4 (80.0-98.0) fL MCH 29.4 (27.0-33.0) pg MCHC 34.5 (31.0-36.0) g/dl RDW 13.0 (11.0-16.0) % Plt Count 233 (160-400) X10*3/uL MPV 11.8 (9.4-12.4) fL Immature Gran % (Auto) 0.5 H (0.0-0.4) % Neut % (Auto) 75.0 H (45-73) % Lymph % (Auto) 15.9 L (20-40) % [place] % (Auto) 5.7 (2-11) % Eos % (Auto) 2.1 (0-4) % Baso % (Auto) 0.8 (0-2) % Lymph # (Auto) 1.1 L (1.2-4.9) X10*3/uL [place] # (Auto) 0.4 (0.1-1.2) X10*3/uL Eos # (Auto) 0.1 (0.0-0.4) X10*3/uL Baso # (Auto) 0.1 (0.0-0.2) X10*3/uL Abs Immat Gran (auto) 0.03 (0.00-0.03) X10*3/uL Absolute Neuts (auto) 5.0 (2.0-8.3) x10*3/uL Absolute Nucleated RBC 0.000 (0.0-0.012) X10*3/uL Nucleated RBC % (auto) 0.0 (0.0-0.2) /100WBC Sodium 138 (135-145) mmol/L Potassium 5.0 D (3.3-5.1) mmol/L Chloride 105 (96-108) mmol/L Carbon Dioxide 26 (22-29) mmol/L Anion Gap 12 (12-20) BUN 13 (9-16) mg/dL Creatinine 0.95 (0.5-1.4) mg/dL Estim Creat Clear Calc 118.8 Estimated GFR > 60 POC Glucose 97 (60-115) mg/dL Random Glucose 87 (60-115) mg/dL Lactic Acid (0.5-2.0) mmol/L Calcium 10.1 (8.4-10.2) mg/dL Total Bilirubin 0.3 (0.0-1.0) mg/dL Direct Bilirubin 0.1 (0.0-0.5) mg/dL AST 27 (5-37) U/L ALT 40 (0-40) U/L Alkaline Phosphatase 109 (39-117) U/L Total Creatine Kinase 219 H (38-174) U/L Total Protein 8.4 H (6.5-8.0) g/dL Albumin 4.6 (3.5-5.0) g/dL COVID-19 ([facility]) (Negative) COVID-19 Clin Com 11/05/22 11/05/22 Range/Units 13:58 13:58 WBC (4.8-10.8) X10*3/uL RBC (4.60-5.80) X10*6/uL Hgb (14.0-18.0) g/dl Hct (42.0-52.0) % MCV (80.0-98.0) fL MCH (27.0-33.0) pg MCHC (31.0-36.0) g/dl RDW (11.0-16.0) % Plt Count (160-400) X10*3/uL MPV (9.4-12.4) fL Immature Gran % (Auto) (0.0-0.4) % Neut % (Auto) (45-73) % Lymph % (Auto) (20-40) % [place] % (Auto) (2-11) % Eos % (Auto) (0-4) % Baso % (Auto) (0-2) % Lymph # (Auto) (1.2-4.9) X10*3/uL [place] # (Auto) (0.1-1.2) X10*3/uL Eos # (Auto) (0.0-0.4) X10*3/uL Baso # (Auto) (0.0-0.2) X10*3/uL Abs Immat Gran (auto) (0.00-0.03) X10*3/uL Absolute Neuts (auto) (2.0-8.3) x10*3/uL Absolute Nucleated RBC (0.0-0.012) X10*3/uL Nucleated RBC % (auto) (0.0-0.2) /100WBC Sodium (135-145) mmol/L Potassium (3.3-5.1) mmol/L Chloride (96-108) mmol/L Carbon Dioxide (22-29) mmol/L Anion Gap (12-20) BUN (9-16) mg/dL Creatinine (0.5-1.4) mg/dL Estim Creat Clear Calc Estimated GFR POC Glucose (60-115) mg/dL Random Glucose (60-115) mg/dL Lactic Acid 4.0 H* (0.5-2.0) mmol/L Calcium (8.4-10.2) mg/dL Total Bilirubin (0.0-1.0) mg/dL Direct Bilirubin (0.0-0.5) mg/dL AST (5-37) U/L ALT (0-40) U/L Alkaline Phosphatase (39-117) U/L Total Creatine Kinase (38-174) U/L Total Protein (6.5-8.0) g/dL Albumin (3.5-5.0) g/dL COVID-19 ([facility]) Negative (Negative) COVID-19 Clin Com See Note Independent Historian Clinical information obtained from an independent historian. History obtained from or confirmed by: EMS Discharge Plan Discharge Clinical Impression: Epileptic seizure Patient Disposition: Home, Self-Care Instructions: Recurrent Seizures in Adults (ED) Additional Instructions: do not miss any doses of your keppra We did give you a dose in the ER today. Please continue with your normal doses Follow-up with your neurologist outpatient Prescriptions: No Action levetiracetam 1,000 mg tablet 1,000 mg PO BID lorazepam [Ativan] 1 mg tablet 1 mg PO BEDTIME PRN (Reason: sleep/seizure) Qty: 20 0RF Referrals: Ceci Alicea MD [Physician] - 1 week Fabian Johnson MD [Primary Care Provider] - 1 week
[2022-11-05 14:04] LABS: MANUAL DIFF FLAG NO
[2022-11-05 14:06] LABS: Basophils Absolute Auto 0.1 X10*3/uL (0.0-0.2); Basophils Percent Auto 0.8 % (0-2); Eosinophils Absolute Auto 0.1 X10*3/uL (0.0-0.4); Eosinophils Percent Auto 2.1 % (0-4); Hematocrit 49.6 % (42.0-52.0); Hemoglobin 17.1 g/dl (14.0-18.0); Imm Gran Abs Auto 0.03 X10*3/uL (0.00-0.03); Imm Gran Pct Auto 0.5 % (0.0-0.4); Lymphocytes Absolute Auto 1.1 X10*3/uL (1.2-4.9); Lymphocytes Percent Auto 15.9 % (20-40); Mean Corpuscular HGB Conc 34.5 g/dl (31.0-36.0); Mean Corpuscular Hemoglobin 29.4 pg (27.0-33.0); Mean Corpuscular Volume 85.4 fL (80.0-98.0); Mean Platelet Volume 11.8 fL (9.4-12.4); Monocytes Absolute Auto 0.4 X10*3/uL (0.1-1.2); Monocytes Percent Auto 5.7 % (2-11); Platelet Count 233 X10*3/uL (160-400); Red Blood Count 5.81 X10*6/uL (4.60-5.80); White Blood Count 6.6 X10*3/uL (4.8-10.8)
[2022-11-05 14:19] LABS: IDNOW Serial# 08D9AD1C
[2022-11-05 14:21] LABS: COVID-19 Test Negative (Negative)
[2022-11-05 14:25] LABS: Alanine Aminotransferase 40 U/L (0-40); Albumin Level 4.6 g/dL (3.5-5.0); Alkaline Phosphatase 109 U/L (39-117); Anion Gap 12 (12-20); Aspartate Amino Transferase 27 U/L (5-37); Bilirubin Direct 0.1 mg/dL (0.0-0.5); Bilirubin Total 0.3 mg/dL (0.0-1.0); Blood Urea Nitrogen 13 mg/dL (9-16); Calcium 10.1 mg/dL (8.4-10.2); Carbon Dioxide 26 mmol/L (22-29); Chloride 105 mmol/L (96-108); Creatinine Clr Calc Pharmacy 118.8; Estimated Glomerular Filt Rate > 60; Glucose Random 87 mg/dL (60-115); Sodium 138 mmol/L (135-145); Total Protein 8.4 g/dL (6.5-8.0)
[2022-11-05] MEDS: 0.9 % Sodium Chloride 1,000 ML 999 ML IV (14:36)
[2022-11-05] MEDS: levETIRAcetam 1,000 MG TABLET 1000 MG PO (14:38)
[2022-11-05 15:40] VITALS: BP 115/72; PULSE 69; RESP 13; O2SAT 98
[2022-11-05 16:02] LABS: Reflex Lactate? Lactic Acid Added
[2022-11-16 22:24] LABS: Levetiracetam Keppra 26.1 mcg/mL (6.0-46.0)
== END 2022-11-05 15:51 | disposition home or self-care (01) ==
PROVIDERS: Nurse Practitioner Family; Emergency Provider Emergency Medicine; PCP Internal Medicine
DX: G40.909 Epilepsy, unspecified, not intractable, without status epilepticus (principal); Z20.822 Contact with and (suspected) exposure to COVID-19; F12.90 Cannabis use, unspecified, uncomplicated; Z79.899 Other long term (current) drug therapy
CPT/HCPCS: 36415; 80048; 80076; 80177; 82550; 82947; 83605; 85025; 87635; 96360; 99284

== ENCOUNTER 2022-12-18 05:48 | Emergency (ER) | payer MEDICAID, SELFPAY ==
--- NOTE | 2022-12-18 | ECG_ITS ---
Test Reason : seizures Blood Pressure : / mmHG Vent. Rate : 076 BPM Atrial Rate : 076 BPM P-R Int : 130 ms QRS Dur : 084 ms QT Int : 362 ms P-R-T Axes : 042 004 032 degrees QTc Int : 407 ms Normal sinus rhythm RSR' or QR pattern in V1 suggests right ventricular conduction delay Otherwise normal ECG No significant changes seen Referred By: Generic ED Physician Electronically Signed By:JOYCELYN CORRAL MD
[2022-12-18 05:55] VITALS: BP 113/77; BP 152/90; PULSE 75; PULSE 90; RESP 21; TEMP 36.6; O2SAT 95; BMI 27.8
--- NOTE | 2022-12-18 07:05 | ED_ITS ---
HPI - Seizure General Chief Complaint: Seizure Stated Complaint: Seizure Time Seen by Provider: 12/18/22 07:00 Source: patient and EMS Mode of arrival: EMS Limitations: no limitations History of Present Illness HPI Narrative: A 32 year old male history of seizure patient is taking Keppra 1 g b.i.d., patient here by EMS after a witnessed seizure by his spouse while he is in bed, no witness head injury, patient had 5-10 minutes postictal confusion time, patient stated that his been taking his medication as prescribed, no head injury, then sleeping of her, been eating and drinking okay, no recent sickness, declined using any drugs or alcohol only smokes marijuana, patient now feels back to his baseline. Seizure History: Yes Related Data Home Medications Medication Instructions Recorded Confirmed levetiracetam 1,000 mg tablet 1,000 mg PO BID 08/12/22 08/12/22 Previous Rx's Medication Instructions Recorded lorazepam 1 mg tablet (Ativan) 1 mg PO BEDTIME PRN sleep/seizure 08/12/22 #20 tabs Allergies Allergy/AdvReac Type Severity Reaction Status Date / Time No Known Allergies Allergy Verified 08/12/22 05:11 Review of Systems Review of Systems: All other systems are reviewed and are negative Constitutional: Reports as per HPI and Reports no additional constitutional complaints Eyes: Reports as per HPI and Reports no additional eye complaints Reports system reviewed and no additional complaints, except as documented Cardiovascular: Reports as per HPI and Reports no additional cardiovascular complaints Respiratory: Reports as per HPI and Reports no additional respiratory complaints Gastrointestinal: Reports as per HPI and Reports no additional gastrointestinal complaints Genitourinary: Reports no additional female genitourinary complaints Musculoskeletal: Reports no additional musculoskeletal complaints Skin/Breast: Reports system reviewed and no additional complaints, except as docu Psychiatric: Reports no additional psychiatric complaints Endocrine: Reports no additional endocrine complaints Hematologic/Lymphatic: Reports no additional hematologic/lymphatic complaints Allergic/Immunologic: Reports no additional allergic/immunologic complaints Reports system reviewed and no additional complaints, except as documented and Reports Abnormal speech present [facility] Past Medical History Medical History Seizure disorder Social History Social History Alcohol intake: current Alcohol intake frequency: does not drink Smoked in Last 30 Days: No Use of substances other than those prescribed or required for medical reasons: Yes Substance Use Type: Marijuana Substance Use Frequency: Daily Advance Directives: No Advance Directives Information Provided: Yes Physical Exam Vital Signs: Vital Signs: Last Vital Signs Temp 97.9 F 12/18/22 05:55 Pulse 75 12/18/22 05:55 Resp 21 H 12/18/22 05:55 BP 113/77 12/18/22 05:55 Pulse Ox 95 12/18/22 05:55 O2 Del Method Nasal Cannula 12/18/22 05:55 Oxygen Flow Rate 2 12/18/22 05:55 BMI result Body Mass Index 27.8 Vital signs have been reviewed and appear to be correct. Blood pressure elevated. Heart rate normal. Respiratory rate normal. Temperature normal. Oxygen saturation normal. Appearance: Alert. Oriented X3. No acute distress. Head: Normal external exam. Normocephalic. Atraumatic. No Robbins signs noted. No raccoon eyes noted Eyes: PERRLA. EOMI. Conjunctiva and sclera normal. Eyelids normal. ENT: TM's Normal. Pharynx normal. Uvula midline. Moist mucous membranes. No trismus noted. No drooling noted. No muffled voice noted. Neck: Normal inspection. Neck supple. FROM. No adenopathy. Thyroid Normal. No meningeal signs. No neck mass noted. CVS: Normal heart rate and rhythm. Heart sound normal. No murmurs noted. Pulses normal throughout. Respiratory: No respiratory distress. Painless inspiration. Breath sounds normal. No wheezes/rales/rhonchi noted. Chest nontender. No accessory muscle usage noted or decreased air movement noted. Abdomen: Soft and nontender. Bowel sounds normal in all 4 quadrants. No distention noted. No organomegaly noted. No visible injury noted. Back: No CVA tenderness. Full range of motion noted. Skin: Skin warm and dry. Normal skin color. Normal skin turgor. No rashes/lesions/lacerations noted. Extremities: No lower extremity edema. Extremities exhibit normal range of motion. Extremities nontender. Neuro: Oriented X 3. Cranial nerve exam: II-XII are grossly intact No motor deficit. No sensory deficit. Reflexes normal. Course Reevaluation(s) Reevaluation #1: Known history of seizure, normally patient has seizure once a month despite taking his medication and following the neurology instruction, no head injury, no change in the patient daily activity, no need for labs or head CT, normal neuro exam with a GCS of 15. Will discharge to follow-up with Neurology and PCP versus Time: 07:09 Medical Decision Making Differential Diagnosis Differential Diagnoses: The differential diagnosis associated with the presentation includes (Seizure, head injury,) Admission/Observation Consideration of admission/observation: Escalation of care including admission/observation considered Discharge Plan Discharge Clinical Impression: Epileptic seizure Patient Disposition: Home, Self-Care Instructions: Epilepsy (ED) Additional Instructions: Do not drive until cleared by Neurology. Prescriptions: No Action levetiracetam 1,000 mg tablet 1,000 mg PO BID lorazepam [Ativan] 1 mg tablet 1 mg PO BEDTIME PRN (Reason: sleep/seizure) Qty: 20 0RF Referrals: Ceci Alicea MD [Physician] - Fabian Johnson MD [Primary Care Provider] -
[2022-12-18 07:29] VITALS: BP 109/77; PULSE 75; RESP 16; O2SAT 95
== END 2022-12-18 07:30 | disposition home or self-care (01) ==
PROVIDERS: Emergency Provider Emergency Medicine; PCP Internal Medicine
DX: G40.909 Epilepsy, unspecified, not intractable, without status epilepticus (principal)
CPT/HCPCS: 93005; 99283; 99284

== ENCOUNTER 2023-04-12 13:16 | Emergency (ER) | payer MEDICAID, SELFPAY ==
--- NOTE | ~2023-04-12 | CT_ITS ---
EXAMINATION: CT HEAD WITHOUT CONTRAST CLINICAL INFORMATION: Head trauma. Question seizure. COMPARISON: Previous head CT most recent February 2022 and brain MRI April 2022 TECHNIQUE: Contiguous axial imaging was performed from the skull base to vertex without intravenous administration of contrast. This CT examination was performed using dose optimization techniques as appropriate, variously including the following: *Automated exposure control *Adjustment of mA and/or kV according to patient size (this includes techniques or standardized protocols for targeted exams where dose is matched to indication/reason for exam; i.e. extremities or head) *Use of iterative reconstruction technique DLP: 598 mGy-cm FINDINGS: There is no evidence for an extra-axial collection. There is no evidence for intra-or extra-axial hemorrhage. The ventricles and extra-axial CSF spaces are appropriate. Mae-white matter differentiation is normal. No mass, mass effect or infarct is seen. Review of bone windows is normal. No skull fracture. Small polyp or cyst in the left maxillary sinus. Visualized paranasal sinuses, mastoid air cells and middle ears are otherwise clear. CT/CT head/brain wo IV con IMPRESSION: Unremarkable exam.
--- NOTE | 2023-04-12 13:19 | ED.GENADULT ---
HPI - General Adult General Chief complaint: Seizure Stated complaint: ?SZ,OCONNELL,BACK PAIN PER EMS Time Seen by Provider: 04/12/23 13:18 Source: patient Mode of arrival: ambulatory Limitations: other (Postictal on arrival) History of Present Illness HPI narrative: 32-year-old male presents status post seizure prior to arrival patient has had 2 within the past hour he had a suspected seizure at home where he was found lying in bed, with urinary or bowel incontinence, when he was on the ambulance stretcher coming into the hospital ambulance personnel report a 42 second long seizure tonic-clonic. Patient appears postictal on arrival and having headache which he reported to EMS. Not on thinners. NO CP, sob, nausea, vomiting, abd pain, neck pain. On keppra Related Data Home Medications Medication Instructions Recorded Confirmed levetiracetam 1,000 mg tablet 1,000 mg PO BID 08/12/22 08/12/22 Previous Rx's Medication Instructions Recorded lorazepam 1 mg tablet (Ativan) 1 mg PO BEDTIME PRN sleep/seizure 08/12/22 #20 tabs Allergies Allergy/AdvReac Type Severity Reaction Status Date / Time No Known Allergies Allergy Verified 08/12/22 05:11 Review of Systems Review of Systems: Constitutional : No Weight loss, No Fever, No Chills, No Fatigue, No Malaise ENT/Mouth : No sore throat, No Rhinorrhea Eyes: No Eye Pain, No Swelling, No Redness Cardiovascular : No Chest Pain, No SOB, No Dyspnea on Exertion, No Orthopnea, No Edema, No Palpitations Respiratory : No Cough, No Sputum, No Wheezing Gastrointestinal : No Nausea, No Vomiting, No Diarrhea, No Constipation, No abdominal Pain, No Hematochezia, No Melena Genitourinary : No Dysuria, No Urinary Frequency, No Hematuria, Musculoskeletal : No joint pain, No Myalgias, No Joint Swelling Skin : No Skin Lesions, No rash Neuro : No Weakness, No Numbness, No Dizziness, No Headache Psych : No Anxiety/Panic, No Depression All other systems reviewed and are negative Yes all other systems are reviewed and are negative [facility] Past Medical History Attestation statement: The following information was validated with the patient. Source: old records reviewed and nursing notes reviewed Medical History Seizure disorder Social History Social History Alcohol intake: current Alcohol intake frequency: does not drink Substance Use Type: Marijuana Advance Directives: No Advance Directives Information Provided: No Physical Exam ED Vital Signs: Vital Signs - 24 hr 04/12/23 13:47 04/12/23 13:56 04/12/23 14:37 Temperature 98.8 F Pulse Rate 84 84 Respiratory Rate 16 14 Blood Pressure 121/70 113/68 Pulse Oximetry 98 97 Oxygen Delivery Method Room Air Room Air 04/12/23 16:07 Temperature Pulse Rate 84 Respiratory Rate 16 Blood Pressure 119/71 Pulse Oximetry 99 Oxygen Delivery Method Room Air BMI result Body Mass Index 22.6 vss Appearance: Alert.? Oriented X3.? No acute distress.? Head: Normocephalic, atraumatic, no step-offs or deformities Eyes: Pupils equal, round and reactive to light.? CVS: Normal heart rate and rhythm.? Pulses normal.? Respiratory: No respiratory distress.? Breath sounds normal.? Abdomen: Soft and nontender.? Skin: Skin warm and dry.? Normal skin color.? Normal skin turgor.? Extremities: No lower extremity edema.? No calf ttp. 5/5 strength to bilateral upper and lower extremitiesNeuro: Oriented X 3.? No motor deficit.? No sensory deficit. CN 2-12 intact Course Reevaluation(s) Reevaluation #1: Labs, imaging pending no seizure activity since meds. Sign out to Bernardo JONES pending dispo, labs, imaging. Time: 16:34 Reevaluation #2: Patient alert oriented x3. Whole-body evaluating negative for signs of trauma. Patient had CT scan normal. UA negative for infection. UA shows benzos and marijuana. Electrolytes are normal. CPK 500. Patient was given oral fluid White blood cell count elevated due to patient having seizure in the ER. Patient presently asymptomatic. Was discussed with patient for admission due to patient having 2 seizures at home and 1 seizure witnessed in the ER. Patient states he last had seizures 4 months ago. Patient states being compliant with seizure meds. This information was reiterated for patient to be admitted for at least for observation by hospitalist and possible neurology consult. Patient will like to leave and will return if he has worrisome signs or any other concerning symptoms that I explained to him. Patient explained risk of for leaving but patient still would like to leave and understand risk. is present Time: 19:54 Medications Administered Discontinued Medications Generic Name Dose Route Start Last Admin Trade Name Rafael PRN Reason Stop Dose Admin Levetiracetam 1,000 mg in 100 mls @ 400 mls/hr 04/12/23 14:15 04/12/23 15:56 Keppra IV 04/12/23 14:29 Infused ONCE ONE Infusion Midazolam HCl 2 mg 04/12/23 13:20 04/12/23 14:25 Midazolam Hcl/Pf 2 Mg/2 Ml Vial IVPUSH 04/12/23 13:21 2 mg ONCE ONE Administration Midazolam HCl 2 mg 04/12/23 13:38 04/12/23 14:26 Midazolam Hcl/Pf 2 Mg/2 Ml Vial IVPUSH 04/12/23 13:39 2 mg ONCE ONE Administration Ondansetron HCl 4 mg 04/12/23 16:55 04/12/23 17:06 Ondansetron Hcl 4 Mg/2 Ml Vial IVPUSH 04/12/23 16:56 4 mg ONCE ONE Administration Medical Decision Making Medical Decision Making [facility] Narrative: 1320 32 year old male presents w/ two seizures [employer] 1 witnessed by EMS when at home. Physical exam patient appears to be postictal at this time however alert and oriented x4. No focal neuro deficits This is likely epileptic seizure. Unlikely intracranial hemorrhage, stroke posterior stroke. Will rule out traumatic injury to head since for seizure was not witnessed. Will rule out metabolic derangements, anemia and hyponatremia Plan at this time labs, imaging. Will load patient with Keppra and give midazolam as there is an Ativan shortage at this time. Will place patient on seizure precautions. Differential Diagnosis Differential Diagnoses: The differential diagnosis associated with the presentation includes This is likely epileptic seizure. Unlikely intracranial hemorrhage, stroke posterior stroke. Will rule out traumatic injury to head since for seizure was not witnessed. Will rule out metabolic derangements, anemia and hyponatremia Admission/Observation Consideration of admission/observation: Escalation of care including admission/observation considered Possible Lab Data [facility] Lab Attestation statement: I reviewed the patient's lab results. 04/12/23 17:06 04/12/23 17:06 Labs: Lab Results 02/07/24 02/07/24 Range/Units 17:06 19:28 WBC 16.2 H (4.8-10.8) X10*3/uL RBC 5.69 (4.60-5.80) X10*6/uL Hgb 16.3 (14.0-18.0) g/dl Hct 47.9 (42.0-52.0) % MCV 84.2 (80.0-98.0) fL MCH 28.6 (27.0-33.0) pg MCHC 34.0 (31.0-36.0) g/dl RDW 13.2 (11.0-16.0) % Plt Count 211 (160-400) X10*3/uL MPV 11.6 (9.4-12.4) fL Immature Gran % (Auto) 0.4 (0.0-0.4) % Neut % (Auto) 89.5 H (45-73) % Lymph % (Auto) 4.4 L (20-40) % [place] % (Auto) 5.4 (2-11) % Eos % (Auto) 0.1 (0-4) % Baso % (Auto) 0.2 (0-2) % Lymph # (Auto) 0.7 L (1.2-4.9) X10*3/uL [place] # (Auto) 0.9 (0.1-1.2) X10*3/uL Eos # (Auto) 0.0 (0.0-0.4) X10*3/uL Baso # (Auto) 0.0 (0.0-0.2) X10*3/uL Abs Immat Gran (auto) 0.06 H (0.00-0.03) X10*3/uL Absolute Neuts (auto) 14.5 H (2.0-8.3) x10*3/uL Absolute Nucleated RBC 0.000 (0.0-0.012) X10*3/uL Nucleated RBC % (auto) 0.0 (0.0-0.2) /100WBC Sodium 139 (135-145) mmol/L Potassium 4.4 (3.3-5.1) mmol/L Chloride 109 H (96-108) mmol/L Carbon Dioxide 24 (22-29) mmol/L Anion Gap 10 L (12-20) BUN 7 L (9-16) mg/dL Creatinine 0.95 (0.5-1.4) mg/dL Estim Creat Clear Calc 100.2 Estimated GFR > 60 Random Glucose 101 (60-115) mg/dL Lactic Acid 1.3 (0.5-2.0) mmol/L Calcium 9.3 D (8.4-10.2) mg/dL Magnesium 2.3 (1.6-2.6) mg/dL Total Bilirubin 0.3 (0.0-1.0) mg/dL AST 32 (5-37) U/L ALT 43 H (0-40) U/L Alkaline Phosphatase 112 (39-117) U/L Total Creatine Kinase 551 H (38-174) U/L Total Protein 8.2 H (6.5-8.0) g/dL Albumin 4.7 (3.5-5.0) g/dL Urine Color Yellow Urine Appearance Turbid Urine pH 5.5 (5.0-9.0) Ur Specific [place] 1.020 (1.005-1.025) Urine Protein Negative (Neg-Trace) mg/dL Urine Glucose (UA) Negative (Negative) mg/dL Urine Ketones Negative (Negative) mg/dL Urine Blood Negative (Negative) Urine Nitrite Negative (Negative) Ur Leukocyte Esterase Negative (Negative) Urine Opiates Screen Not Detected (Not Detect) Urine Fentanyl Screen Not Detected (Not Detect) Ur Barbiturates Screen Not Detected (Not Detect) Ur Phencyclidine Scrn Not Detected (Not Detect) Ur Amphetamines Screen Not Detected (Not Detect) U Benzodiazepines Scrn POSITIVE H (Not Detect) Urine Cocaine Screen Not Detected (Not Detect) U Marijuana (THC) Screen POSITIVE H (Not Detect) Independent Interpretation I performed an independent interpretation of an: CT Scan Radiology Impression Discussion of test interpretation with radiology: I have reviewed the radiologist's reading. External Record Review External record reviewed: Inpatient record, Office record, Outpatient record, Prior outpatient labs, Prior outpatient radiology, Primary care record and Outside ED record Chronic Conditions Patient?s care impacted by: Other (Epilepsy) Critical Care Time Critical Care Time Critical Care Time: Yes Total Critical Care Time: 35 Attestation: I attest to this time spent taking care of the patient, obtaining history, physical, reviewing labs, imaging, speaking to my attending, speaking to specialist. Discharge Plan Discharge Clinical Impression: Epileptic seizure Patient Disposition: Home, Self-Care Instructions: Recurrent Seizures in Adults (ED) Additional Instructions: Recommend follow-up with your primary care provider and neurologist. Return to the ED immediately for seizure, slurred speech, facial droop, paralysis of extremities, loss of vision, nausea, vomiting, altered mental status, weakness, dizziness, headache or any other concerning symptoms. Recommend being compliant with Keppra. Prescriptions: No Action levetiracetam 1,000 mg tablet 1,000 mg PO BID lorazepam [Ativan] 1 mg tablet 1 mg PO BEDTIME PRN (Reason: sleep/seizure) Qty: 20 0RF Stand Alone Forms: Work/School Release Interventions: ED Discharge Assessment Last Done: 04/12/23 21:18 Discharge Date/Time: 04/12/23 21:19 Print Language: Nigerian
--- NOTE | 2023-04-12 13:23 | ECG_ITS ---
Test Reason : SEIZURE Blood Pressure : / mmHG Vent. Rate : 078 BPM Atrial Rate : 078 BPM P-R Int : 132 ms QRS Dur : 084 ms QT Int : 330 ms P-R-T Axes : 062 036 048 degrees QTc Int : 376 ms Normal sinus rhythm Normal ECG When compared with ECG of 18-DEC-2022 05:58, No significant change was found Referred By: Alannah Richardson Electronically Signed By:ALE CARRANZA
[2023-04-12 13:47] VITALS: BP 116/80; BP 121/70; PULSE 84; PULSE 85; RESP 16; O2SAT 98; O2SAT 99; BMI 22.6
[2023-04-12 13:56] VITALS: TEMP 37.1
[2023-04-12] MEDS: levETIRAcetam in NaCl (iso-os) 1,000 MG/100 ML PIGGYBACK 400 MG IV (14:23)
[2023-04-12] MEDS: Midazolam HCl/PF 2 MG/2 ML VIAL IVPUSH ×2 (14:25→14:26)
[2023-04-12 14:37] VITALS: BP 113/68; PULSE 84; RESP 14; O2SAT 97
--- NOTE | 2023-04-12 14:49 | PC.NURSE ---
brought in via ems for seizures. upon arrival, patient uncooperative and combative with care. IV established, medicated per the MAR. placed in soft restraints per paperwork at 1410 due to continuously pulling at equipment and being undirectable with care.
[2023-04-12 16:07] VITALS: BP 119/71; PULSE 84; RESP 16; O2SAT 99
--- NOTE | 2023-04-12 16:41 | PC.NURSE ---
patient removed from soft restraints at this time, alert and oriented x4. taken for ct scan at this time
[2023-04-12] MEDS: ondansetron HCL 4 MG/2 ML VIAL IVPUSH (17:06)
[2023-04-12 17:10] LABS: MANUAL DIFF FLAG NO
[2023-04-12 17:12] LABS: Basophils Percent Auto 0.2 % (0-2); Eosinophils Percent Auto 0.1 % (0-4); Hematocrit 47.9 % (42.0-52.0); Hemoglobin 16.3 g/dl (14.0-18.0); Imm Gran Abs Auto 0.06 X10*3/uL (0.00-0.03); Imm Gran Pct Auto 0.4 % (0.0-0.4); Lymphocytes Absolute Auto 0.7 X10*3/uL (1.2-4.9); Lymphocytes Percent Auto 4.4 % (20-40); Mean Corpuscular Hemoglobin 28.6 pg (27.0-33.0); Mean Corpuscular Volume 84.2 fL (80.0-98.0); Mean Platelet Volume 11.6 fL (9.4-12.4); Monocytes Absolute Auto 0.9 X10*3/uL (0.1-1.2); Monocytes Percent Auto 5.4 % (2-11); Neutrophils Absolute Auto 14.5 x10*3/uL (2.0-8.3); Neutrophils Percent Auto 89.5 % (45-73); Platelet Count 211 X10*3/uL (160-400); Red Blood Count 5.69 X10*6/uL (4.60-5.80); Red Cell Distribution Width 13.2 % (11.0-16.0); White Blood Count 16.2 X10*3/uL (4.8-10.8)
[2023-04-12 17:25] LABS: Lactic Acid 1.3 mmol/L (0.5-2.0)
[2023-04-12 17:31] LABS: Alanine Aminotransferase 43 U/L (0-40); Albumin Level 4.7 g/dL (3.5-5.0); Alkaline Phosphatase 112 U/L (39-117); Anion Gap 10 (12-20); Aspartate Amino Transferase 32 U/L (5-37); Bilirubin Total 0.3 mg/dL (0.0-1.0); Blood Urea Nitrogen 7 mg/dL (9-16); Calcium 9.3 mg/dL (8.4-10.2); Carbon Dioxide 24 mmol/L (22-29); Chloride 109 mmol/L (96-108); Creatinine Clr Calc Pharmacy 100.2; Estimated Glomerular Filt Rate > 60; Glucose Random 101 mg/dL (60-115); Magnesium 2.3 mg/dL (1.6-2.6); Potassium 4.4 mmol/L (3.3-5.1); Sodium 139 mmol/L (135-145); Total Protein 8.2 g/dL (6.5-8.0)
[2023-04-12 19:38] LABS: Appearance Urine Turbid; Color Urine Yellow; Glucose Urine UA Negative (Negative); Leukocyte Esterase Urine Negative (Negative); Nitrite Urine Negative (Negative); PH 5.5 (5.0-9.0); Urine Blood Negative (Negative); Urine Ketones Negative (Negative); Urine Protein Negative (Neg-Trace)
[2023-04-12 19:40] LABS: Amphetamine Screen Urine Not Detected (Not Detect); Barbiturates, Urine Not Detected (Not Detect); Benzodiazepines Screen Urine POSITIVE (Not Detect); Cannabinoid Screen Urine POSITIVE (Not Detect); Cocaine Screen Urine Not Detected (Not Detect); Fentanyl, urine Not Detected (Not Detect); Opiate Screen Urine Not Detected (Not Detect); Phencyclidine Screen Urine Not Detected (Not Detect)
[2023-04-15 20:33] LABS: Levetiracetam Keppra 40.7 mcg/mL (6.0-46.0)
== END 2023-04-12 21:19 | disposition home or self-care (01) ==
PROVIDERS: Physician Assistant; Emergency Provider Emergency Medicine; PCP Internal Medicine
DX: G40.909 Epilepsy, unspecified, not intractable, without status epilepticus (principal); Z79.899 Other long term (current) drug therapy
CPT/HCPCS: 36415; 70450; 80053; 80177; 80307; 81003; 82550; 83605; 83735; 85025; 93005; 96365; 96366; 96375; 99285; J1953; J2250; J2405

== ENCOUNTER → 2023-04-12 13:23 | Outpatient (BNV) | payer MEDICAID, SELFPAY | PROVIDERS: Emergency Provider Emergency Medicine; PCP Internal Medicine; Visit Provider Internal Medicine | DX: R56.9 Unspecified convulsions (principal) | CPT/HCPCS: 93010 ==

== ENCOUNTER 2024-10-23 20:05 | Emergency (ER) | payer SELFPAY ==
--- NOTE | ~2024-10-23 | XR_ITS ---
CLINICAL HISTORY: trauma,pain 4 view left hand Comparison: None provided Findings: There are nondisplaced intra-articular sagittally oriented fractures through the proximal 4th and 5th metacarpal bones. Probable small chip fracture off the dorsal aspect of the distal hamate best seen on the lateral view. No significant arthritic change. No erosions. No radiopaque foreign body. Diffuse dorsal soft tissue swelling of the hand. IMPRESSION: 1. Intra-articular fractures of the proximal 4th and 5th metacarpals. 2. Small chip fracture of the dorsal hamate. This document has been electronically signed by: Darius Palacio MD on 10/23/2024 20:53:27
--- NOTE | ~2024-10-23 | XR_ITS ---
CLINICAL HISTORY: trauma,pain 4 view left wrist Comparison: None provided Findings: Please see same-day left hand report for discussion of 4th and 5th metacarpal fractures. There is a small chip fracture from the dorsum of the hamate. No fracture deformity of the distal radius or ulna. No significant arthritic change or erosions. No radiopaque foreign body. IMPRESSION: Small chip fracture from the dorsum of the hamate. Please see same-day left hand report for discussion of 4th and 5th metacarpal fractures. This document has been electronically signed by: Darius Palacio MD on 10/23/2024 20:53:58
[2024-10-23 20:08] VITALS: BP 127/90; PULSE 69; RESP 20; TEMP 36.6; O2SAT 98; BMI 22.4
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
[2024-10-23 22:47] VITALS: BP 128/82; PULSE 61; RESP 16; TEMP 36.2; O2SAT 98
[2024-10-23] MEDS: oxyCODONE HCl Immed Release 5 MG TABLET PO (23:55)
[2024-10-23 23:57] VITALS: BP 132/78; PULSE 65; RESP 18; TEMP 36.6; O2SAT 100
[2024-10-23 23:58] VITALS: BP 132/78; PULSE 65; RESP 18; TEMP 36.6; O2SAT 100
== END 2024-10-23 23:59 | disposition home or self-care (01) ==
PROVIDERS: Emergency Provider Emergency Medicine Emergency Medical Services; PCP Internal Medicine
DX: S62.347A Nondisplaced fracture of base of fifth metacarpal bone, left hand, initial encounter for closed fracture (principal); S62.145A Nondisplaced fracture of body of hamate [unciform] bone, left wrist, initial encounter for closed fracture; M79.642 Pain in left hand; X58.XXXA Exposure to other specified factors, initial encounter; Y93.9 Activity, unspecified; Y92.9 Unspecified place or not applicable; Y99.8 Other external cause status
CPT/HCPCS: 29125; 73110; 73130; 99283; 99284

== ENCOUNTER → 2024-10-23 20:11 | Outpatient (BNV) | payer SELFPAY | PROVIDERS: PCP Internal Medicine; Visit Provider Radiology Diagnostic Radiology | DX: S62.315A Displaced fracture of base of fourth metacarpal bone, left hand, initial encounter for closed fracture (principal); S62.152A Displaced fracture of hook process of hamate [unciform] bone, left wrist, initial encounter for closed fracture | CPT/HCPCS: 73110; 73130 ==

== ENCOUNTER 2024-10-29 09:02 | Outpatient (AMB) | payer MEDICAID, SELFPAY ==
[2024-10-29 09:12] VITALS: BMI 22.4
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
== END 2024-10-29 10:28 | disposition home or self-care (01) ==
LOC: HO.HOS 09:03
PROVIDERS: PCP Internal Medicine
DX: S62.345A Nondisplaced fracture of base of fourth metacarpal bone, left hand, initial encounter for closed fracture (principal); S62.347A Nondisplaced fracture of base of fifth metacarpal bone, left hand, initial encounter for closed fracture; S62.145A Nondisplaced fracture of body of hamate [unciform] bone, left wrist, initial encounter for closed fracture
CPT/HCPCS: 29125; 99204

== ENCOUNTER → 2024-10-29 09:05 | Outpatient (BNV) | payer MEDICAID, SELFPAY | PROVIDERS: Visit Provider Radiology Diagnostic Radiology | DX: S62.345A Nondisplaced fracture of base of fourth metacarpal bone, left hand, initial encounter for closed fracture (principal); S62.347A Nondisplaced fracture of base of fifth metacarpal bone, left hand, initial encounter for closed fracture | CPT/HCPCS: 73120; 73130 ==

== ENCOUNTER 2024-10-29 09:49 | Outpatient (REF) | payer MEDICAID, SELFPAY ==
--- NOTE | ~2024-10-29 | XR_ITS ---
EXAMINATION: XR HAND 3 OR MORE VIEWS LEFT HISTORY: M79.641 - Pain in left hand COMPARISON: Comparison is made with the prior examination dated 10/23/2024. FINDINGS: Four views of the left hand are submitted. Osseous mineralization is normal. Again seen are minimally displaced fractures of the bases of the 4th and 5th metacarpals. The joint spaces are preserved. The soft tissues are unremarkable. XR/XR hand LT min 3V IMPRESSION: Fractures of the bases of the 4th and 5th metacarpals without change. Electronically signed by: Jerome Sousa MD 10/29/2024 09:35 AM EDT
--- NOTE | ~2024-10-29 | XR_ITS ---
EXAMINATION: XR HAND, LEFT CLINICAL INFORMATION: S62.345A - Nondisplaced fracture of base of fourth and fifth metacarpal bone, left... Follow-up COMPARISON: October 23, 2024 and x-ray performed 40 minutes earlier on same day TECHNIQUE: Lateral view of the left hand. FINDINGS: Intra-articular fracture involving the base of the fourth and fifth metacarpals is not as well demonstrated on the lateral view. Fracture overlaps with other metacarpal bases. There is periosteal new bone formation consistent with early healing. XR/XR hand LT 2V IMPRESSION: Early signs of healing involving fractures of the base of the fourth and fifth metacarpals of the left hand. Electronically signed by: Chai Cook MD 10/29/2024 10:00 AM EDT
== END 2024-10-29 09:50 | disposition home or self-care (01) ==
LOC: HO.HOSX 09:49
PROVIDERS: Visit Provider Orthopaedic Surgery
DX: S62.345A Nondisplaced fracture of base of fourth metacarpal bone, left hand, initial encounter for closed fracture (principal); S62.347A Nondisplaced fracture of base of fifth metacarpal bone, left hand, initial encounter for closed fracture; S62.143A Displaced fracture of body of hamate [unciform] bone, unspecified wrist, initial encounter for closed fracture; W22.01XA Walked into wall, initial encounter
CPT/HCPCS: 29125; 73120; 73130; 99212

== ENCOUNTER 2024-10-31 09:56 | Day surgery (SDC) | payer MEDICAID, SELFPAY ==
[2024-10-31] VITALS (7 sets, daily range): BP systolic 115–126; BP diastolic 67–82; PULSE 61–76; RESP 12–16; TEMP 36.6–36.7; O2SAT 96–98; BMI 25.5
--- NOTE | ~2024-10-31 | FL_ITS ---
EXAMINATION: FL GUIDANCE ONLY HISTORY: 4th and 5th CRPP vs ORIF Metacarpal (Left) COMPARISON: Correlation is made with plain films of the left hand dated 10/29/2024. TECHNIQUE: Fluoroscopy time: 50.28 seconds. Cumulative Dose: 1.473 mGy. DAP: 0.0890 mGym2 Images: 2. FINDINGS: Fluoroscopic spot films of the left hand demonstrate placement of K wires across the 2nd through 5th metacarpal bases. FL/FL guidance in OR IMPRESSION: Fluoroscopy during procedure. Please see procedure report for additional information. Electronically signed by: Jerome Sousa MD 10/31/2024 03:21 PM EDT
--- NOTE | 2024-10-31 09:12 | P.OP_ITS ---
Operative Note Operative Note Date of Service: 10/31/24 Narrative: Operative Note Narrative: Preop diagnosis: 1. Left 5th Metacarpal base fracture dislocation 2. Left 4th metacarpal base fracture dislocation Postop diagnosis: Same Procedure: 1. Left 5th Metacarpal base fracture dislocation closed reduction percutaneous pinning 2. Left 4th metacarpal base fracture dislocation closed reduction percutaneous pinning 3. Ulnar nerve block Surgeon: Fabi Rose MD C[employer]arette Machines Mechanic: Nacho JONES Anesthesia: General Anesthesia Findings: Metacarpal fracture Implants: 0.062 K-wires times 1, 0.054 K-wire x1 Tourniquet time: None EBL: Minimal Specimen: None Drains: None Complications: None Disposition: Brought to the recovery room in stable condition Plan: Follow-up in 10-14 days for a wound check, postop radiographs and for placement in a short-arm cast or splint Anticipate K-wire removal in 4 weeks based on interval bony healing Educate the patient that full fracture healing anticipated in approximately 8-12 weeks. Indications: The patient is 34 years old with fractures of the left 4th and 5th metacarpal bases with dorsal dislocations also of the 4th and 5th metacarpal bases . The risks and benefits of operative treatment, including but not limited to risk of damage to blood vessels, nerves, tendons, infection, recurrence, delayed or nonunion of fracture, persistent pain or numbness, incomplete resolution of preoperative symptoms, or need for further surgery were discussed with the patient and they wished to proceed with surgery. Procedure: Once consent was obtained patient was brought back to the operating suite and placed in the operating table in a supine position. . Perioperative antibiotics and general anesthesia was administered by the anesthesia team. A tourniquet was applied to the proximal aspect of the left upper extremity and the limb was prepped and draped in a standard surgical fashion. Tourniquet was not inflated during the case. The FluoroScan was used during the case to assist with our fracture reduction and placement of all implants. A closed reduction was performed on the patient's left 4th and 5th metacarpal base fractures. They were also reduced at the 4th and 5th CMC joints. They had been subluxated dorsally about 30% of the joint. I placed a single 0.062 K-wire transversely through the ulnar aspect of the 5th metacarpal passing through the 4th metacarpal base and into the 3rd metacarpal base. I was very satisfied with our reduction of both the fractures and of the joints. I placed a 0.054 K-wire roughly parallel and slightly distal to the 1st K-wire for additional fixation, also passing into the base of the 2nd metacarpal. Fracture alignment was assessed for both angular and rotational malalignment. Once satisfied with our fracture reduction and implant placement, the K-wires were bent and cut short and pin caps applied. Final fluoroscopic images were then obtained. The wounds were copiously irrigated with normal saline. An ulnar nerve block was then performed by infiltrating about the ulnar nerve at the wrist with some 1% lidocaine with epinephrine for postop pain control. A Sterile dressing and short volar splint was applied. The patient appears to have tolerated the procedure well and with no complications. All digits were well vascularized at the conclusion of the case.
[2024-10-31] MEDS: Lactated Ringers 1,000 ML 100 ML IVCONT (10:29)
--- NOTE | 2024-10-31 11:25 | P.CONAN_ITS ---
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 Last seizure 09/2024 d/t lack of sleep, parental stressor. None since and >1 year prior to that. [facility] Past Medical History Medical History Seizure disorder Surgical History Surgical History (Updated 10/31/24 @ 10:06 by Milly Ribeiro RN) History of dental surgery Social History Social History (Updated 10/29/24 @ 09:22 by ZE Wiggins) Alcohol intake: current Alcohol intake frequency: does not drink Patient Tobacco Use Status: Never used Tobacco Use of substances other than those prescribed or required for medical reasons: Yes Substance Use Type: Marijuana Substance Use Type Other:: last smoked 10/30 am Substance Use Frequency: Occasionally Are you DNR?: No Advance Directives: No Advance Directives Information Provided: Yes Current occupational status: unemployed Current occupation: [employer] Allergies Allergy/AdvReac Type Severity Reaction Status Date / Time No Known Allergies Allergy Verified 10/29/24 09:14 Home Medications ?Medication ?Instructions ?Recorded ?Confirmed ?Last Taken ?Type levetiracetam 1,000 mg tablet 1,000 mg PO BID 08/12/22 10/31/24 10/31/24 07:30 History divalproex 250 mg tablet,delayed 250 mg PO BID 10/31/24 10/31/24 07:30 History release Exam Pertinent Lab Results Pertinent Lab Results: Narrative Narrative: EKG 09/2024 Ventricular Rate: 71 BPM Atrial Rate: 71 BPM P-R Interval: 116 ms QRS Duration: 82 ms Q-T Interval: 382 ms QTC Calculation(Bazett): 415 ms P [place]: 37 degrees R [place]on: 37 degrees T [place]: 43 degrees Normal sinus rhythm Normal ECG No previous ECGs available Confirmed by EVER MAYORGA MD ([id number]) on 09/07/2024 1:18:09 PM Assessment and Plan Assessment Anesthesia Assessment: Chart Reviewed Documented by User: Milly Morin DO 10/31/24 11:27 [facility] Past Medical History Medical History Seizure disorder Family History Family history of problems with anesthesia: No Surgical History Surgical History (Updated 10/31/24 @ 10:06 by Milly Ribeiro RN) History of dental surgery History of Problems with Anesthesia: No Social History Social History (Updated 10/29/24 @ 09:22 by ZE iWggins) Alcohol intake: current Alcohol intake frequency: does not drink Patient Tobacco Use Status: Never used Tobacco Use of substances other than those prescribed or required for medical reasons: Yes Substance Use Type: Marijuana Substance Use Type Other:: last smoked 10/30 am Substance Use Frequency: Occasionally Are you DNR?: No Advance Directives: No Advance Directives Information Provided: Yes Current occupational status: unemployed Current occupation: rt [employer] Allergies Allergy/AdvReac Type Severity Reaction Status Date / Time No Known Allergies Allergy Verified 10/29/24 09:14 Home Medications ?Medication ?Instructions ?Recorded ?Confirmed ?Last Taken ?Type levetiracetam 1,000 mg tablet 1,000 mg PO BID 08/12/22 10/31/24 10/31/24 07:30 History divalproex 250 mg tablet,delayed 250 mg PO BID 5 10/31/24 10/31/24 07:30 History release Exam Exam Date and Time: 10/31/24 1125 Height,Weight and Vital Signs: Height 5 ft 6 in Weight 71.8 kg Vital Signs Temperature 98.1 F 10/31/24 10:25 Pulse Rate 71 10/31/24 10:25 Respiratory Rate 15 10/31/24 10:25 Blood Pressure 116/67 10/31/24 10:25 Pulse Oximetry 98 10/31/24 10:25 Oxygen Delivery Method Room Air 10/31/24 10:25 Temperature 98.1 F 10/31/24 10:25 Pulse Rate 71 10/31/24 10:25 Respiratory Rate 15 10/31/24 10:25 Blood Pressure 116/67 10/31/24 10:25 Pulse Oximetry 98 10/31/24 10:25 Oxygen Delivery Method Room Air 10/31/24 10:25 Airway Mallampati Class: I TM Dist: >3cm Neck ROM: Full Loose/Missing/Broken Teeth: No (patient denies any loose or broken teeth) Heart: S1S2 Lungs: CTAB Assessment and Plan Assessment Anesthesia Assessment: Anesthesia Plan Discussed and Chart Reviewed Final Anesthetic Review Family History of Problems with Anesthesia: No History of Problems with Anesthesia: No NPO: Yes ASA Class: II Final Preanesthetic Review: No Changes in Pt Med Stat, Meds/Allgs Chart Reviewed, Consent Obtained/Reviewed and Anes Risks/Benef Reviewed Patient Risk: Low Procedure Risk: Low Anesthetic Plan Anesthetic Plan: GA and Agree w/ Assess. and Plan Disposition: Standard PACU
--- NOTE | 2024-10-31 11:34 | MHC.SHP ---
Pre-Procedural Eval Section A - 24 Hr Update-Section A only Date of Service: 10/31/24 The patient is an INPATIENT: No Changes since office visit: No Cold of Flu in the past 2 weeks, No New Medical Problems, No Changes in Medication and No Patient answered all questions The patient has been examined within 24 hours of the surgical procedure. The History & Physical has been completed within 30 days and I have reviewed it.: Yes Section B - Complete if H&P > 30 days Chief Complaint: 4th and 5th metacarpal Allergies: Allergies Allergy/AdvReac Type Severity Reaction Status Date / Time No Known Allergies Allergy Verified 10/29/24 09:14 Plan I have reviewed the history and physical and performed a pertinent physical examination on my patient. No changes have occurred unless specified. Time Spent With Patient Time: Total time managing care of this patient today ____ minutes.
== END 2024-10-31 14:15 | disposition home or self-care (01) ==
PROVIDERS: Visit Provider Orthopaedic Surgery
PROC: (CPT 26608; principal; 2024-10-31 11:30)
DX: S62.315A Displaced fracture of base of fourth metacarpal bone, left hand, initial encounter for closed fracture (principal); S62.317A Displaced fracture of base of fifth metacarpal bone, left hand, initial encounter for closed fracture; S62.145A Nondisplaced fracture of body of hamate [unciform] bone, left wrist, initial encounter for closed fracture; M89.8X4 Other specified disorders of bone, hand; R20.0 Anesthesia of skin; R20.2 Paresthesia of skin; W22.09XA Striking against other stationary object, initial encounter; Y93.89 Activity, other specified; Y92.9 Unspecified place or not applicable; Y99.9 Unspecified external cause status; G40.909 Epilepsy, unspecified, not intractable, without status epilepticus; Z79.1 Long term (current) use of non-steroidal anti-inflammatories (NSAID); Z79.899 Other long term (current) drug therapy; Z56.0 Unemployment, unspecified
CPT/HCPCS: 26608 ×2; J0131; J0690; J1100; J2003; J2250; J2405; J2704; J3010

== ENCOUNTER → 2024-10-31 09:56 | Outpatient (BNV) | payer MEDICAID, SELFPAY | PROVIDERS: Visit Provider Orthopaedic Surgery | DX: S62.317A Displaced fracture of base of fifth metacarpal bone, left hand, initial encounter for closed fracture (principal); S62.305A Unspecified fracture of fourth metacarpal bone, left hand, initial encounter for closed fracture | CPT/HCPCS: 26608 ==

== ENCOUNTER 2024-11-13 09:09 | Outpatient (REF) | payer MEDICAID, SELFPAY ==
--- NOTE | ~2024-11-13 | XR_ITS ---
EXAMINATION: XR HAND 3 OR MORE VIEWS LEFT HISTORY: M79.642 - Pain in left hand COMPARISON: Comparison is made with the prior examination dated 10/29/2024. FINDINGS: Three views of the left hand are submitted. Osseous mineralization is normal. The patient is status post internal fixation of fractures of the bases of the 4th and 5th metacarpals with two K wires. The fracture lines remain visible, but are blurred, consistent with healing. The joint spaces are preserved. The soft tissues are unremarkable. XR/XR hand LT min 3V IMPRESSION: Healing internally fixed fractures of the bases of the 4th and 5th metacarpals. Electronically signed by: Jerome Sousa MD 11/13/2024 02:01 PM EDT
== END 2024-11-13 09:10 | disposition home or self-care (01) ==
LOC: HO.HOSX 09:09
DX: S62.347A Nondisplaced fracture of base of fifth metacarpal bone, left hand, initial encounter for closed fracture (principal); S62.145A Nondisplaced fracture of body of hamate [unciform] bone, left wrist, initial encounter for closed fracture; S62.345A Nondisplaced fracture of base of fourth metacarpal bone, left hand, initial encounter for closed fracture; X58.XXXA Exposure to other specified factors, initial encounter
CPT/HCPCS: 29085; 73130; 99212

== ENCOUNTER 2024-11-13 13:12 | Outpatient (AMB) | payer MEDICAID, SELFPAY ==
[2024-11-13 13:27] VITALS: BMI 25.5
--- NOTE | 2024-11-13 13:27 | MHC.OFFVIS ---
Vital Signs 11/13/24 13:27 Height 5 ft 6 in Weight 158 lb BMI 25.5 Intake Visit Reasons: PO LT 4th/5th MC CRPP 10/31/24 AR Intake Note: Moises is a 34 year old right hand dominant male who presents today for his first post operative visit status post Left 4th & 5th Metacarpal Base Fracture CRPP, DOS: 10/31/[address] Rose. Patient is doing well today. Denies numbness, tingling, or pain. He still has some [place] at home in case he needs it. Allergies No Known Allergies Allergy (Verified 11/13/24 13:29) HPI HPI PO LT 4th/5th MC CRPP 10/31/24 AR: Details: Moises is a 34 year old right hand dominant male who presents today for his first post operative visit status post Left 4th & 5th Metacarpal Base Fracture CRPP, DOS: 10/31/[address] Rose. Patient is doing well today. Denies numbness, tingling, or pain. He still has some [place] at home in case he needs it. Patient reports that he has been adamant about keeping the splint clean, dry, intact at all times. Reports he has been working on range of motion of the digits of the right hand. No other acute complaints or concerns at this time. [facility] Medical History Seizure disorder Surgical History (Updated 10/31/24 @ 10:06 by Milly Ribeiro RN) History of dental surgery Social History (Updated 10/29/24 @ 09:22 by ZE Wiggins) Alcohol intake: current Alcohol intake frequency: does not drink Patient Tobacco Use Status: Never used Tobacco Substance Use Type: Marijuana Current occupational status: unemployed Current occupation: rt handed Review of Systems Const All systems reviewed & are unremarkable except as noted in HPI and below Physical Exam Vital Signs: BMI result Body Mass Index 25.5 Extrem Other: Patient is alert, oriented, and in no acute distress. Neuro: Normal sensation of the tips of all digits of the left hand at this time Vascular: Cap refill brisk Pain: No tenderness to palpation about pin sites on ulnar aspect of the left hand at the level of the 5th and 4th metacarpal bases ROM: Patient is able to make a closed fist with the left hand Skin: Pins in place on ulnar aspect of left hand, no erythema, drainage, or evidence of infection Swelling has resolved No lacerations or abrasions. General: Resolved ecchymosis No erythema or evidence of infection. Psych: Appears grossly normal Affect normal Attitude cooperative Office Procedures Casting/Splints [id number]-Zapx/Wrist Cast Application Procedure code (CPT) selection complete Results Reviewed Results Reviewed: X-rays obtained in the office today and independently reviewed by me, Nacho Sampson PA-C, demonstrate status post CRPP of left 4th and 5th metacarpal bases with all orthopedic hardware in place and in satisfactory clinical alignment. Assessment & Plan Assessment & Plan (1) Closed fracture of fifth metacarpal bone: Code(s): S62.308A - Unspecified fracture of other metacarpal bone, initial encounter for closed fracture Category: Medical Qualifiers: Encounter type: initial encounter Fracture alignment: nondisplaced Laterality: left Metacarpal location: base Qualified Code(s): S62.347A - Nondisplaced fracture of base of fifth metacarpal bone, left hand, initial encounter for closed fracture (2) Closed hamate fracture: Code(s): S62.143A - Displaced fracture of body of hamate [unciform] bone, unspecified wrist, initial encounter for closed fracture Category: Medical Qualifiers: Encounter type: initial encounter Fracture alignment: nondisplaced Hamate bone location: unspecified portion of hamate Laterality: left Qualified Code(s): S62.145A - Nondisplaced fracture of body of hamate [unciform] bone, left wrist, initial encounter for closed fracture (3) Closed fracture of 4th metacarpal: Code(s): S62.308A - Unspecified fracture of other metacarpal bone, initial encounter for closed fracture Category: Medical Qualifiers: Encounter type: initial encounter Fracture alignment: nondisplaced Laterality: left Metacarpal location: base Qualified Code(s): S62.345A - Nondisplaced fracture of base of fourth metacarpal bone, left hand, initial encounter for closed fracture Plan Status post CRPP of left 4th and 5th metacarpals DOS 10/31/2024 Patient appears to be recovering well postoperatively Patient is educated about the typical recovery course Patient is placed into a cast at this time that will immobilize the wrist and the MCP joints of the left 4th and 5th digits Patient is educated he should continue work on range of motion of all mobilized joints Patient will remain in cast for 4 weeks Patient is educated on proper cast care and precautions Nonweightbearing in left upper extremity until follow-up Follow-up in 4 weeks with repeat x-rays, anticipate pin removal at that time, sooner with any acute concerns Orders: Orders XR hand LT min 3V Today M79.642 - Pain in left hand Coding Level of Care Code Global (92411) Diagnoses Closed fracture of fifth metacarpal bone S62.347A Encounter type: initial encounter Fracture alignment: nondisplaced Laterality: left Metacarpal location: base Closed hamate fracture S62.145A Encounter type: initial encounter Fracture alignment: nondisplaced Hamate bone location: unspecified portion of hamate Laterality: left Closed fracture of 4th metacarpal S62.345A Encounter type: initial encounter Fracture alignment: nondisplaced Laterality: left Metacarpal location: base CPT Codes Casting - CPT: 02789-Rbpl/Wrist Cast Application ([id number])
--- OUTSIDE RECORDS SUMMARY | 2024-11-13 16:12 | XMS_ITS | Clinical Summary ---
Author Organization [employer] Address [address] [place] [address] Care Team Providers Care Chemical Engineering Technologist Name Role Phone Unavailable Primary Care Provider Unavailabl e Encounters Date Type Department Care Team Description 11/01/2024 Telephone [facility] [address] [place] [address] Марина Zafar RN NEEDS EMPLOYEE REPRESENTATIVE APPT 10/31/2024 Orders Only [facility] External Provider, [facility] 10/29/2024 Telephone [facility] INS ENROLLMENT [address] [place] [address] Chantelle Gambino MD from Last 3 Months Social History Tobacco Use Types Packs/Day Years Used Date Smoking Tobacco: Never Assessed Sex and Gender Information Value Date Recorded Sex Assigned at Male 10/29/2024 2:24 PM EDT Legal Sex Male 11:14 AM EDT Gender Identity Male 10/29/2024 2:24 PM EDT Sexual Orientation Not on file Plan of Treatment Health Maintenance Due Date Last Done Comments Depression Screening 1990 HIV Screening 1990 SDOH Screening 1990 Disability Screening 1990 Alcohol/Substance Use Screening 2002 Tobacco Screening 2002 Family Planning (PISQ) 2005 HPV Vaccines (1 - Male 3-dos e series) 2005 Hepatitis C Screening 2008 DTaP/Tdap/Td Vaccines (1 - Tdap) 2009 Hepatitis B Vaccines (1 of 3 - 19+ 3-dose series) 2009 COVID-19 Vaccine (1 - 2023-2 5 season) 2024 Influenza Vaccine (#1) 2024 Zoster Vaccines (1 of 2) 2040 RSV Patients and Pa tients Aged 60 years or older (1 - 1-dose 75+ series) 2065 HIB Vaccines Aged Out No longer eligi ble based on patient's age to complete this topic Hepatitis A Vaccines Aged Out No long er eligible based on patient's age to complete this topic IPV Vaccines Aged Out No longer eligi ble based on patient's age to complete this topic Meningococcal B Vaccine Aged Out No l onger eligible based on patient's age to complete this topic Meningococcal Vaccine Aged Out No maria g june eligible based on patient's age to complete this topic Pneumococcal Vaccine: Pediat rics (0 to 5 Years) and At-Risk Patients (6 to 49) Years Aged Out No longer eligible b ased on patient's age to complete this topic RSV under 20 months Aged Out No longe r eligible based on patient's age to complete this topic Rotavirus Vaccines Aged Out No longer eligible based on patient's age to complete this topic Procedures Procedure Name Priority Date/Time Associated Diagnosis Comments FL GUIDANCE IN OR Routine 10/31/2024 11: 30 AM EDT from Last 3 Months Results * FL Guidance in OR (10/31/2024 11:30 AM EDT) Anatomical Region Laterality Modality X-Ray Angiograph y 10/31/2024 11:3 0 AM EDT Narrative 10/31/2024 3:24 PM EDT [place] [address] Fluoroscopy Report Signed Patient: Moises Crisostomo MR#: [id number] : 1990 Acct:[id number] Age/Sex: 34 / M ADM Date: 10/31/24 Loc: [facility] Attending Dr: Fabi Rose MD Ordering Physician: Fabi Rose MD Date of Service: 10/31/24 Procedure(s): FL guidance in OR Accession Number(s): [id number] cc: [facility]; Faib Rose MD EXAMINATION: FL GUIDANCE ONLY HISTORY: 4th and 5th CRPP vs ORIF Metacarpal (Left) COMPARISON: Correlation is made with plain films of the left hand dated 10/29/2024. TECHNIQUE: Fluoroscopy time: 50.28 seconds. Cumulative Dose: 1.473 mGy. DAP: 0.0890 mGym2 Images: 2. FINDINGS: Fluoroscopic spot films of the left hand demonstrate placement of K wires across the 2nd through 5th metacarpal bases. FL/FL guidance in OR IMPRESSION: Fluoroscopy during procedure. Please see procedure report for additional information. Electronically signed by: Jerome Sousa MD 10/31/2024 03:21 PM EDT RP Dictated By: Jerome Sousa MD Signed By: <Electronically signed by Jerome Sousa MD in OV> 10/31/24 1521 DD/ 1130 TD/TT: 10/31/24 1240 Senior Gis Analyst: Procedure Note Donotuseinterpreter, Image - 10/31/2024 [place] [address] Fluoroscopy Report Signed Patient: Moises CrisostomoMR#: [id number] : 1990Acct:[id number] Age/Sex: 34 / MADM Date: 10/31/24 Loc: [facility] Attending Dr: Fabi Rose MD Ordering Physician: Fabi Rose MD Date of Service: 10/31/24 Procedure(s): FL guidance in OR Accession Number(s): [id number] cc: [facility]; Fabi Rose MD EXAMINATION: FL GUIDANCE ONLY HISTORY: 4th and 5th CRPP vs ORIF Metacarpal (Left) COMPARISON: Correlation is made with plain films of the left hand dated 10/29/2024. TECHNIQUE: Fluoroscopy time: 50.28 seconds. Cumulative Dose: 1.473 mGy. DAP: 0.0890 mGym2 Images: 2. FINDINGS: Fluoroscopic spot films of the left hand demonstrate placement of K wires across the 2nd through 5th metacarpal bases. FL/FL guidance in OR IMPRESSION: Fluoroscopy during procedure. Please see procedure report for additional information. Electronically signed by: Jerome Sousa MD 10/31/2024 03:21 PM EDT RP Dictated By: Jerome Sousa MD Signed By: <Electronically signed by Jerome Sousa MD in OV> 10/31/24 1521 DD/ 1130 TD/TT: 10/31/24 1240 Senior Gis Analyst: [facility] External Provider IMG IR PROCEDURES Final Result from Last 3 Months Insurance [facility] C3
== END 2024-11-13 15:10 | disposition home or self-care (01) ==
LOC: HO.HOS 13:12
DX: S62.347A Nondisplaced fracture of base of fifth metacarpal bone, left hand, initial encounter for closed fracture (principal); S62.145A Nondisplaced fracture of body of hamate [unciform] bone, left wrist, initial encounter for closed fracture; S62.345A Nondisplaced fracture of base of fourth metacarpal bone, left hand, initial encounter for closed fracture
CPT/HCPCS: 29085; 99024

== ENCOUNTER → 2024-11-13 13:24 | Outpatient (BNV) | payer MEDICAID, SELFPAY | PROVIDERS: Visit Provider Radiology Diagnostic Radiology | DX: M79.642 Pain in left hand (principal); S62.315D Displaced fracture of base of fourth metacarpal bone, left hand, subsequent encounter for fracture with routine healing; S62.317D Displaced fracture of base of fifth metacarpal bone, left hand, subsequent encounter for fracture with routine healing | CPT/HCPCS: 73130 ==

== ENCOUNTER 2024-11-26 06:04 | Inpatient (IN) | payer MEDICAID, SELFPAY ==
[2024-11-26] VITALS (16 sets, daily range): BP systolic 98–134; BP diastolic 60–87; PULSE 63–88; RESP 11–19; TEMP 36.1–36.8; O2SAT 77–100; BMI 26.0
--- NOTE | 2024-11-26 | EEG_ITS ---
Room read: 402 Reason: breakthrough seizures History: seizures - Patient had witnessed 2 min GTC seizure at home. Patient had missed at least 2 doses of Keppra prior. Medications: Keppra, divalproex Technical description Photo stimulation: completed Hyperventilation: omitted Behavioral state: Pt cooperative State of consciousness: Awake and sleep Handedness; right Duration: 26 mins 7 secs Description: CHADD
--- NOTE | 2024-11-26 | ECG_ITS ---
Test Reason : NSVT Blood Pressure : */* mmHG Vent. Rate : 70 BPM Atrial Rate : 70 BPM P-R Int : 112 ms QRS Dur : 82 ms QT Int : 354 ms P-R-T Axes : 7 11 32 degrees QTcB Int : 382 ms Normal sinus rhythm with sinus arrhythmia Normal ECG When compared with ECG of 26-Nov-2024 06:18, No significant change was found Referred By: Radha Norman Electronically Signed By: Aman Camacho
--- NOTE | ~2024-11-26 | CT_ITS ---
CLINICAL HISTORY: breakthrough seizures CT head without contrast COMPARISON: None FINDINGS: No acute intracranial hemorrhage, extra-axial fluid collection, mass effect, or midline shift. Ventricular system and basilar cisterns are patent. Mae-white matter differentiation is maintained. No gross orbital abnormality. No suspicious or acute bone lesion. Mastoid air cells and paranasal sinuses are predominantly clear. IMPRESSION: 1. No acute intracranial abnormality. This document has been electronically signed by: Gary Yanez MD on 11/26/2024 19:38:30
--- NOTE | 2024-11-26 06:09 | ECG_ITS ---
Test Reason : SEIZURE ACTIVITY Blood Pressure : */* mmHG Vent. Rate : 82 BPM Atrial Rate : 82 BPM P-R Int : 118 ms QRS Dur : 86 ms QT Int : 356 ms P-R-T Axes : 45 23 38 degrees QTcB Int : 415 ms Normal sinus rhythm Normal ECG When compared with ECG of 12-Apr-2023 16:29, No significant change was found Referred By: Katherine Wilkes Electronically Signed By: Aman Camacho
--- NOTE | 2024-11-26 06:18 | ED.SEIZURE ---
HPI - Seizure General Chief Complaint: General Medical Stated Complaint: SEIZURE Source: patient, EMS and old records reviewed Mode of arrival: EMS Limitations: altered mental status History of Present Illness ED Provider: THERESA REED Narrative: 34 yo male with PMH of seizures, currently has L UE cast due to hand fracture. He is here with c/o seizure GTC at home lasting 2 min witnessed by . Did not take keppra this AM but has hx of non compliance in the past. He is awake on arrival and then started to stare off no further shaking movements. He only c/o headache but no head trauma was reported. We used to see him in the past frequently for epilepsy. MD complaint: seizure Onset (ago): minute(s) (PATTERN HAND) Description of Episode: loss of consciousness and tonic-clonic movement Duration of episode: 2 -: minutes(s) Witnessed: Yes - by Bystander Trauma: No Seizure History: Yes Place: Home Possible Precipitating Event: none Associated symptoms: denies other symptoms Treatments prior to arrival: none Related Data Home Medications ?Medication ?Instructions ?Recorded ?Confirmed levetiracetam 1,000 mg tablet 1,000 mg PO BID 08/12/22 10/31/24 divalproex 250 mg tablet,delayed 250 mg PO BID 10/29/24 10/31/24 release Previous Rx's ?Medication ?Instructions ?Recorded lorazepam 1 mg tablet (Ativan) 1 mg PO BEDTIME PRN sleep/seizure 08/12/22 #20 tabs acetaminophen 500 mg tablet 1,000 mg (2 x 500 mg) PO Q6H PRN 10/23/24 (Tylenol Extra Strength) fever or pain #20 tabs ibuprofen 400 mg tablet 400 mg PO TID PRN fever or pain 10/23/24 #30 tabs oxycodone 5 mg tablet 5 mg PO Q4H PRN pain #14 tabs 10/23/24 hydrocodone 5 mg-acetaminophen 325 1 tab PO Q6H PRN pain #15 tabs 10/31/24 mg tablet Allergies Allergy/AdvReac Type Severity Reaction Status Date / Time No Known Allergies Allergy Verified 11/26/24 06:39 Review of Systems Review of Systems: ROS unable to be obtained due to being postictal PMFSH Past Medical History Attestation statement: The following information was validated with the patient. Source: old records reviewed Medical History Seizure disorder Surgical History History of dental surgery Social History Social History Alcohol intake: current Alcohol intake frequency: does not drink Patient Tobacco Use Status: Never used Tobacco Substance Use Type: Marijuana Advance Directives: No Advance Directives Information Provided: Yes Do you have a plan to hurt others: No Plan Current occupational status: unemployed Current occupation: rt handed Physical Exam Vital Signs: Vital Signs: Last Vital Signs Temp 98.1 F 11/26/24 10:23 Pulse 84 11/26/24 10:23 Resp 14 11/26/24 10:23 BP 125/72 11/26/24 10:23 Pulse Ox 94 11/26/24 10:23 O2 Del Method Nasal Cannula 11/26/24 10:23 O2 Flow Rate 6 11/26/24 10:23 BMI result Body Mass Index 26.0 Appearance: postictal confused but able to answer yes or no mild acute distress. Eyes: Pupils equal, round and reactive to light. ENT: Pharynx normal. no bleeding and no tongue injury noted, atraumatic scalp Neck: Normal inspection. Neck supple. CVS: Normal heart rate and rhythm. Pulses normal. Respiratory: No respiratory distress. Breath sounds normal. Abdomen: Soft and nontender. Skin: Skin warm and clammy. pale skin color. Extremities: No lower extremity edema. L arm in red cast - fingers sensation intact and BCR in all digits Neuro: confused. No motor deficit. No sensory deficit. Course Course Course Narrative: 925am at baseline, he has no complaints, he admits to not being compliant with his seizure medications will continue to observe and if okay will DC in the next couple of hours. Reevaluation(s) Reevaluation #1: 1019am again brief GTC seizure, given IV valium will add on additional IV keppra and admit Medications Administered Discontinued Medications Generic Name Dose Route Start Last Admin Trade Name Freq PRN Reason Stop Dose Admin Diazepam 2.5 mg 11/26/24 10:18 11/26/24 10:22 Diazepam 10 Mg/2 Ml Cartridge IVPUSH 11/26/24 10:19 2.5 mg STAT STA Administration Divalproex Sodium 250 mg 11/26/24 06:34 11/26/24 06:51 Divalproex Sodium Er 250 Mg Tab.Er.24h PO 11/26/24 06:35 250 mg ONCE ONE Administration Levetiracetam 1,000 mg in 100 mls @ 400 mls/hr 11/26/24 06:08 11/26/24 06:52 Keppra IV 11/26/24 06:22 Infused ONCE ONE Infusion Lactated Ringer's 1,000 mls @ 999 mls/hr 11/26/24 06:08 11/26/24 08:10 Lr IV 11/26/24 07:08 Infused .Q1H1M ONE Infusion Midazolam HCl 4 mg 11/26/24 06:08 11/26/24 06:24 Midazolam Hcl 2 Mg/2 Ml Vial IVPUSH 11/26/24 06:09 4 mg ONCE ONE Administration Ondansetron HCl 4 mg 11/26/24 06:24 11/26/24 06:26 Ondansetron Hcl 4 Mg/2 Ml Vial IVPUSH 11/26/24 06:25 4 mg ONCE ONE Administration Medical Decision Making Medical Decision Making MDM Narrative: 34 yo male with PMH of epilepsy who is supposed to be on keppra 1,000mg BID and depakote 250mg ER BID he comes in after seizure at home. Initially on arrival he was more coherent - he reports compliance with seizure meds though his EMR says otherwise in past. I am going to give oral depakote and load with IV keppra. He had a moment of confusion as well - IV versed 4mg ordered. Will monitor for clinical signs of improvement admit if he does not return to baseline or any other further seizures. Differential Diagnosis Differential Diagnoses: The differential diagnosis associated with the presentation includes seizure, non compliance, epilepsy Admission/Observation Consideration of admission/observation: Escalation of care including admission/observation considered recurrent seizure in ED will admit for further management Consult Healthcare Provider Management of the patient was discussed with: Hospitalist (will admit) Lab Data [facility] Lab Attestation statement: I reviewed the patient's lab results. 11/26/24 06:22 11/26/24 06:22 Labs: Lab Results 11/26/24 11/26/24 11/26/24 Range/Units 06:12 06:22 06:47 WBC 10.1 (4.8-10.8) X10*3/uL RBC 5.40 (4.60-5.80) X10*6/uL Hgb 15.8 (14.0-18.0) g/dl Hct 46.8 (42.0-52.0) % MCV 86.7 (80.0-98.0) fL MCH 29.3 (27.0-33.0) pg MCHC 33.8 (31.0-36.0) g/dl RDW 13.2 (11.0-16.0) % Plt Count 215 (160-400) X10*3/uL MPV 11.8 (9.4-12.4) fL Immature Gran % (Auto) 0.4 (0.0-0.4) % Neut % (Auto) 64.3 (45-73) % Lymph % (Auto) 23.7 (20-40) % [place] % (Auto) 7.0 (2-11) % Eos % (Auto) 3.9 (0-4) % Baso % (Auto) 0.7 (0-2) % Lymph # (Auto) 2.4 (1.2-4.9) X10*3/uL [place] # (Auto) 0.7 (0.1-1.2) X10*3/uL Eos # (Auto) 0.4 (0.0-0.4) X10*3/uL Baso # (Auto) 0.1 (0.0-0.2) X10*3/uL Abs Immat Gran (auto) 0.04 H (0.00-0.03) X10*3/uL Absolute Neuts (auto) 6.5 (2.0-8.3) x10*3/uL Absolute Nucleated RBC 0.000 (0.0-0.012) X10*3/uL Nucleated RBC % (auto) 0.0 (0.0-0.2) /100WBC Sodium 141 (135-145) mmol/L Potassium 3.8 (3.3-5.1) mmol/L Chloride 108 (96-108) mmol/L Carbon Dioxide 21 L (22-29) mmol/L Anion Gap 16 (12-20) BUN 10 (9-16) mg/dL Creatinine 0.91 (0.5-1.4) mg/dL Estim Creat Clear Calc 103.2 Estimated GFR > 60 POC Glucose 117 H (60-115) mg/dL Random Glucose 110 (60-115) mg/dL Calcium 9.0 (8.4-10.2) mg/dL Magnesium 2.0 (1.6-2.6) mg/dL Total Bilirubin 0.3 (0.0-1.0) mg/dL Direct Bilirubin 0.1 (0.0-0.5) mg/dL AST 32 (5-37) U/L ALT 28 (0-40) U/L Alkaline Phosphatase 72 (39-117) U/L Total Protein 7.4 (6.5-8.0) g/dL Albumin 4.5 (3.5-5.0) g/dL Lipase 37 (8-78) U/L Valproic Acid 21.0 L (50.0-100.0) mcg/mL Ethyl Alcohol < 10 mg/dL Independent Interpretation I performed an independent interpretation of an: EKG Interpretation: Rate: 82 Rhythm: NSR [place]: normal Normal P waves. Normal JACEK. Normal QRS complex. ST T wave : normal no MINISTERIO qTC: 415 prior studies: no acute ischemia The study has been interpreted contemporaneously by me. . Independent Historian Clinical information obtained from an independent historian. History obtained from or confirmed by: EMS External Record Review External record reviewed: Inpatient record, Outpatient record and Prior outpatient labs Critical Care Time Critical Care Time Critical Care Time: Yes Total Critical Care Time: 45 Attestation: repeat IV benzo for seizures, review of records, admission, IVF, repeat AEDs for seizures I attest to this time spent taking care of the patient Discharge Plan Discharge Clinical Impression: Seizure Patient Disposition: Admitted As Inpatient Print Language: Divehi
[2024-11-26] MEDS: levETIRAcetam in NaCl (iso-os) 1,000 MG/100 ML PIGGYBACK 400 MG IV (06:19)
[2024-11-26] MEDS: Lactated Ringers 1,000 ML 999 ML IV (06:27)
[2024-11-26 06:40] LABS: Hematocrit 46.8 % (42.0-52.0); Hemoglobin 15.8 g/dl (14.0-18.0); Mean Corpuscular Volume 86.7 fL (80.0-98.0); Platelet Count 215 X10*3/uL (160-400); Red Blood Count 5.40 X10*6/uL (4.60-5.80)
--- NOTE | 2024-11-26 06:40 | PC.NURSE ---
pt change into hospital attire, two iv placed, one in the right forearm and ac, pt placed on residential monitor, labs collect and sent, medicated given per may. seizure pads in place.
[2024-11-26 06:47] LABS: Calcium 9.0 mg/dL (8.4-10.2); Chloride 108 mmol/L (96-108); Potassium 3.8 mmol/L (3.3-5.1); Sodium 141 mmol/L (135-145)
--- OUTSIDE RECORDS SUMMARY | 2024-11-26 06:50 | XMS_ITS | Clinical Summary ---
Author Organization [employer] Address [address] [address] [address] Care Team Providers Care Slitter Cut Off Operator Name Role Phone Unavailable Primary Care Provider Unavailabl e Encounters Date Type Department Care Team Description 11/01/2024 Telephone [facility] MEDICINE [address] [place] [address] Марина Zafar RN NEEDS MARINE ARCHITECT APPT 10/31/2024 Orders Only [facility] External Provider, [facility] 10/29/2024 Telephone [facility] INS ENROLLMENT [address] [place] [address] Chantelle Gambino MD from Last 3 Months [...] AM EDT Narrative 10/31/2024 3:24 PM EDT [place] [address] Fluoroscopy Report Signed Patient: Moises Crisostomo MR#: [id number] : 1990 Acct:[id number] Age/Sex: 34 / M ADM Date: 10/31/24 Loc: [facility] Attending Dr: Fabi Rose MD Ordering Physician: Fabi Rose MD Date of Service: 10/31/24 Procedure(s): FL guidance in OR Accession Number(s): [id number] cc: [facility]; Fabi Rose MD EXAMINATION: FL GUIDANCE [...] 10/31/24 1521 DD/ 1130 TD/TT: 10/31/24 1240 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 Donotuseinterpreter, Image - 10/31/2024 [place] [address] Fluoroscopy Report Signed Patient: Moises CrisostomoMR#: [id number] : 1990Acct:[id number] Age/Sex: 34 / MADM Date: 10/31/24 Loc: [facility] Attending Dr: Fabi Rose MD Ordering Physician: Fabi Rose MD Date of Service: 10/31/24 Procedure(s): FL guidance in OR Accession Number(s): [id number] cc: [facility]; Fabi Rose MD EXAMINATION: [place] GUIDANCE [...] 10/31/24 1521 DD/ 1130 TD/TT: 10/31/24 1240 Hvac Sheet Metal Installer Helper: [facility] External Provider IMG IR PROCEDURES Final Result from Last 3 Months Insurance [facility] C3
[2024-11-26] MEDS: Divalproex Sodium ER 250 MG TAB.ER.24H PO (06:51)
--- NOTE | 2024-11-26 06:53 | PC.NURSE ---
pt has a left hand fx in a cast.
--- NOTE | 2024-11-26 09:01 | PC.NURSE ---
this RN assumed care of pt at 0645. pt originally remained post-ictal. slow to respond/sluggish. pt now a&ox4. answering questions/following commands appropriately. vss and up to date. nsr on the cardiac cath tech. pt transitioned back to RA (baseline) w/o difficulty. no apparent respiratory distress. no sob/wob noted. respirations even/unlabored. seizure precautions remain in place. plan of care ongoing. call kern placed within reach.
--- NOTE | 2024-11-26 09:20 | PC.NURSE ---
1:[address] for safety precautions.
--- NOTE | 2024-11-26 10:24 | PC.NURSE ---
sitter called this RN bedside d/t pt not feeling well. pt found to be post-ictal. unable to answer questions/follow commands appropriately. cyanotic lips while noting to be 77% on RA. pt placed on 6L via NC w/ good effect. no apparent respiratory distress. no sob/wob noted. respirations even/unlabored. all other vss and up to date. nsr on the teletypesetter monitor. provider notified/aware immediately. pt medicated per provider order w/ good effect. pt notified/aware that he will need to be admitted/stay for observation. 1:1 sitter remains present. seizure precautions remain in place. plan of care ongoing.
--- NOTE | 2024-11-26 10:52 | PC.NURSE ---
medication administered per provider order. pt remains post-ictal but more awake. responsive to verbal stimuli. answering questions/following commands. no trauma/incontinence noted. vss and up to date. nsr on the monitoring coordinator. on 6L via NC. seizure precautions remain in place. 1:[address] plan of care ongoing. call kern placed within reach.
--- NOTE | 2024-11-26 11:56 | PM.IMHP ---
History of Present Illness Date of Service: 11/26/24 Chief Complaint: Seizures Pt is a 34 yo with known h/o seizures who presented to the ED after a witnessed brief 2 min seizure after he admitted to missing 2 mins of seizures and his called 911. He said he is his gives him the meds on time usually prior to work and he was busy with kids and skipped 2 days worth of home seizure meds. He was reportedly in post ictal state at the time of ED arrival and was given Keppra 2gm IV and oral depakote in ED. He denies substance use and alc use. Denies F/N/V/C/D/C or any other symptoms. He was awake , non ictal and walking to the bedside commode at the time of my examination. Bedside RN was also at the bedside during the examination. HDS , no lab abn, tox screen -ve. EEG and Neuro consulted. Head CT to r/o ic pathologies. Admitted for observation as the most obv etiology was breakthrough seizure 2/2 med non-compliance. Review of Systems Review of Systems: Yes all other systems are reviewed and are negative [facility] Medical History Seizure disorder Functional capacity: independent ambulation Surgical History History of dental surgery Social History Household Members: Spouse and Children Housing: Apartment Do you presently have visiting nurse or other home services: No Alcohol intake: current Alcohol intake frequency: does not drink Patient Tobacco Use Status: Never used Tobacco e-Cigarette/Vaping Use: Never Used Substance Use Type: Marijuana service: No Current occupational status: unemployed Current occupation: rt handed Meds Allergies Allergy/AdvReac Type Severity Reaction Status Date / Time No Known Allergies Allergy Verified 11/26/24 06:39 Active Medications: Current Medications Acetaminophen (Acetaminophen 325 Mg Tablet) 650 mg PO Q6H PRN PRN Reason: Pain, Mild 1-3,fever,headache Calcium Carbonate (Calcium Carbonate 750 Mg Tab.Chew) 750 mg PO Q4H PRN PRN Reason: Heartburn Divalproex Sodium (Divalproex Sodium 500 Mg Tablet.) 500 mg PO BID NATASHA Last Admin: 11/27/24 09:56 Dose: 500 mg Enoxaparin Sodium (Enoxaparin Sodium 40 Mg/0.4 Ml Syringe) 40 mg SUBCUT Q24H [facility] Last Admin: 11/26/24 19:14 Dose: 40 mg Levetiracetam (Levetiracetam 1,000 Mg Tablet) 1,000 mg PO BID [facility] Last Admin: 11/27/24 09:55 Dose: 1,000 mg Magnesium Hydroxide (Milk Of Magnesia 30 Ml Oral.Susp) 30 ml PO DAILY PRN PRN Reason: Constipation Meclizine HCl (Meclizine Hcl 25 Mg Tablet) 25 mg PO Q8H PRN PRN Reason: Dizziness/vertigo Melatonin (Melatonin 3 Mg Tablet) 6 mg PO BEDTIME PRN PRN Reason: Insomnia Polyethylene Glycol (Polyethylene Glycol 3350 17 Gm Powd.Pack) 17 gm PO DAILY PRN PRN Reason: Constipation Sodium Chloride (0.9 % Sodium Chloride Flush 3 Ml Syringe) 3 ml IVFLUSH QSHIFT [facility] Last Admin: 11/27/24 07:07 Dose: Not Given Home Medications ?Medication ?Instructions ?Recorded ?Confirmed ?Last Taken ?Type levetiracetam 1,000 mg tablet 1,000 mg PO BID 08/12/22 11/26/24 11/25/24 History Physical Exam Vital Signs and Narrative: Vital Signs: Last Vital Signs Temp 98.0 F 11/27/24 11:15 Pulse 98 11/27/24 11:15 Resp 17 11/27/24 11:15 BP 120/72 11/27/24 11:15 Pulse Ox 97 11/27/24 11:15 O2 Del Method Room Air 11/27/24 11:15 O2 Flow Rate 2 11/26/24 20:17 BMI result Body Mass Index 25.7 General: AOx3, no acute distress Resp: CTA bilaterally CVS: S1, S2, RRR GI: +BS, NT, no distention Skin: Warm, dry Neuro: no seizures, Motor grossly intact bilaterally Extremities: No edema Psych: Appropriate affect Results Labs 11/27/24 04:30 11/27/24 04:30 Labs: Laboratory Results - last 24 hr 11/26/24 11/26/24 11/27/24 18:07 22:00 04:30 MCV 84.8 MCH 28.6 MCHC 33.7 RDW 13.1 Plt Count 196 MPV 12.0 Immature Gran % (Auto) 0.2 Neut % (Auto) 68.5 Lymph % (Auto) 23.0 [place] % (Auto) 7.4 Eos % (Auto) 0.5 Baso % (Auto) 0.4 Lymph # (Auto) 2.1 [place] # (Auto) 0.7 Eos # (Auto) 0.1 Baso # (Auto) 0.0 Abs Immat Gran (auto) 0.02 Absolute Neuts (auto) 6.3 Absolute Nucleated RBC 0.000 Nucleated RBC % (auto) 0.0 Anion Gap 11 L 11 L Estim Creat Clear Calc 114.5 113.1 Estimated GFR > 60 > 60 Random Glucose 101 Fasting Glucose 108 H Calcium 9.1 9.1 Magnesium 2.0 2.1 Total Bilirubin 0.4 0.5 AST 30 28 ALT 25 24 Alkaline Phosphatase 66 63 Troponin I High Sens Total Protein 7.3 7.1 Albumin 4.5 4.4 Triglycerides 117 Cholesterol 155 LDL Cholesterol, Calc 95 HDL Cholesterol 37 L TSH 4.15 H Free T4 1.11 Urine Opiates Screen Not Detected Ur Buprenorphine Scrn Not Detected Ur Oxycodone Screen Not Detected Urine Methadone Screen Not Detected Urine Fentanyl Screen Not Detected Ur Barbiturates Screen Not Detected Ur Phencyclidine Scrn Not Detected Ur Amphetamines Screen Not Detected U Benzodiazepines Scrn Not Detected Urine Cocaine Screen Not Detected U Marijuana (THC) Screen Not Detected 11/27/24 09:47 MCV MCH MCHC RDW Plt Count MPV Immature Gran % (Auto) Neut % (Auto) Lymph % (Auto) [place] % (Auto) Eos % (Auto) Baso % (Auto) Lymph # (Auto) [place] # (Auto) Eos # (Auto) Baso # (Auto) Abs Immat Gran (auto) Absolute Neuts (auto) Absolute Nucleated RBC Nucleated RBC % (auto) Anion Gap Estim Creat Clear Calc Estimated GFR Random Glucose Fasting Glucose Calcium Magnesium Total Bilirubin AST ALT Alkaline Phosphatase Troponin I High Sens 11.5 D Total Protein Albumin Triglycerides Cholesterol LDL Cholesterol, Calc HDL Cholesterol TSH Free T4 Urine Opiates Screen Ur Buprenorphine Scrn Ur Oxycodone Screen Urine Methadone Screen Urine Fentanyl Screen Ur Barbiturates Screen Ur Phencyclidine Scrn Ur Amphetamines Screen U Benzodiazepines Scrn Urine Cocaine Screen U Marijuana (THC) Screen Assessment and Plan (1) Seizure: Status: Acute 34 yo with known h/o seizures who presented to the ED after a witnessed brief 2 min seizure after he admitted to missing 2 mins of seizures 2/2 medication noncompliance. # Seizures in a pt with known Epilepsy 2/2 missing home meds Pt had 3 episodes of T/C/seizures. Given Keppra, Depakote EEG Head CT Tox screen Seizure precautions Asp precautions Labs daily Keppra was therapeutic and valproic level was subtherapeutic Cont home med Keppra 1gm BID, inc Valproic acid to 500mg po BID (up from 400mg bid) Check Electrolytes and replete to goal # NSVT 1 brief NSVT reported on Tele EKG - NSR Tele Check electrolytes and replete accordingly # ? Complicated Migraine Trial of Topiramate and Ondansetron given unclear if he had migraine. This note is constructed using voice recognition software. While every effort has been made to ensure accuracy, oil driller errors may have been included. Pt needs admission as he continues to have seizures despite medical mx, and to r/o serious ICP and seizures, asp, checking electrolytes and . Quality Stroke Does the patient have a stroke diagnosis?: No VTE Prior VTE?: No VTE Risk Level:: Medical - low VTE Device Contraindication: N/A - Device Ordered VTE Drug Contraindication: N/A - Med Ordered
--- NOTE | 2024-11-26 12:38 | PHA.MEDREC ---
Addendum entered by Rojelio Heard PharmD 11/26/24 12:50: reviewed Original Note: Pharmacy Consult ? Medication Reconciliation Pharmacy has completed the medication reconciliation. Spoke to patient spouse at bedside to confirm med list. Spouse was able to confirm patients meds. spouse states patient sometimes forget to take his medications . Patient had is medications yesterday , however did miss weekend doses.
--- NOTE | 2024-11-26 14:45 | PC.NURSE ---
delay in medication administration d/t pt having EEG completed. will administer medication when able.
--- NOTE | 2024-11-26 16:29 | PM.NEUROCN ---
History of Present Illness Data of Consult Service Date: 11/26/24 Primary Care Provider: Unknown Physician HPI Reason for consult: Seizure This is a 34-year-old man with a history of epilepsy previously followed by Dr. Alicea who comes in after 2 minute witnessed generalized tonic-clonic seizure at home witnessed by his . There is a question of compliance with his medication which include Keppra 1 g b.i.d. and Depakote 250 b.i.d.. His valproic acid level was low at 21 and Keppra levels are pending. He was initially postictal and then gradually came out of it. He was given some IV Keppra and some extra oral Depakote. [facility] Past Medical History Medical History Seizure disorder Surgical History Surgical History History of dental surgery Social History Social History Alcohol intake: current Alcohol intake frequency: does not drink Patient Tobacco Use Status: Never used Tobacco Substance Use Type: Marijuana Advance Directives: No Advance Directives Information Provided: Yes Do you have a plan to hurt others: No Plan Current occupational status: unemployed Current occupation: rt handed Meds Allergies Allergy/AdvReac Type Severity Reaction Status Date / Time No Known Allergies Allergy Verified 11/26/24 06:39 Active Medications: Current Medications Divalproex Sodium (Divalproex Sodium 250 Mg Tablet.) 250 mg PO BID NATASHA Levetiracetam (Levetiracetam 1,000 Mg Tablet) 1,000 mg PO BID NATASHA Meclizine HCl (Meclizine Hcl 25 Mg Tablet) 25 mg PO Q8H PRN PRN Reason: Dizziness/vertigo Home Medications ?Medication ?Instructions ?Recorded ?Confirmed ?Last Taken ?Type levetiracetam 1,000 mg tablet 1,000 mg PO BID 08/12/22 11/26/24 11/25/24 History divalproex 250 mg tablet,delayed 250 mg PO BID 10/29/24 11/26/24 11/25/24 History release Physical Exam Vital Signs: Vital Signs: Last Vital Signs Temp 98.2 F 11/26/24 15:56 Pulse 69 11/26/24 15:56 Resp 15 11/26/24 15:56 BP 114/77 11/26/24 15:56 Pulse Ox 98 11/26/24 15:56 O2 Del Method Nasal Cannula 11/26/24 15:56 O2 Flow Rate 2 11/26/24 15:56 BMI result Body Mass Index 26.0 Neuro: Other: Normal nonfocal neurological examination Results Labs 11/26/24 06:22 11/26/24 06:22 Labs: Short CBC 11/26/24 Range/Units 06:22 WBC 10.1 (4.8-10.8) X10*3/uL Hgb 15.8 (14.0-18.0) g/dl Hct 46.8 (42.0-52.0) % Plt Count 215 (160-400) X10*3/uL BMP 11/26/24 06:22 Sodium 141 Potassium 3.8 Chloride 108 Carbon Dioxide 21 L BUN 10 Creatinine 0.91 Calcium 9.0 Liver Function 11/26/24 Range/Units 06:22 Total Bilirubin 0.3 (0.0-1.0) mg/dL Direct Bilirubin 0.1 (0.0-0.5) mg/dL AST 32 (5-37) U/L ALT 28 (0-40) U/L Alkaline Phosphatase 72 (39-117) U/L Albumin 4.5 (3.5-5.0) g/dL Assessment and Plan (1) Seizure: Status: Acute Plan Breakthrough seizure in a patient known to have epilepsy. There is some question of compliance. His Depakote level is low and Keppra level is pending. I would recommend increasing his Depakote to 500 mg b.i.d. continuing Keppra 1 g b.i.d.. Outpatient follow-up with Dr. Alicea Procedures Date of Service Date of Service: 11/26/24
--- NOTE | 2024-11-26 18:09 | PM.EVENT ---
Event Note Date of Service: 11/26/24 Event Note: Pt reports not taking 2 doses of home seizure meds and noted to have 3 witnessed seizure episodes Loaded with Keppra and Valium (Ativan shortage) EEG &Neuro consulted NSVT - likely electrolyte abn, will check and replete to goal Tele, trop Time Spent With Patient Time: Total time managing care of this patient today ____ minutes.
--- NOTE | 2024-11-26 18:35 | MHC.EDTECH ---
attempted to do ekg pt is in xray
[2024-11-26 18:43] LABS: Alanine Aminotransferase 25 U/L (0-40); Albumin Level 4.5 g/dL (3.5-5.0); Alkaline Phosphatase 66 U/L (39-117); Anion Gap 11 (12-20); Aspartate Amino Transferase 30 U/L (5-37); Blood Urea Nitrogen 8 mg/dL (9-16); Calcium 9.1 mg/dL (8.4-10.2); Carbon Dioxide 25 mmol/L (22-29); Chloride 109 mmol/L (96-108); Creatinine Clr Calc Pharmacy 114.5; Estimated Glomerular Filt Rate > 60; Magnesium 2.0 mg/dL (1.6-2.6); Potassium 3.9 mmol/L (3.3-5.1); Sodium 141 mmol/L (135-145); Total Protein 7.3 g/dL (6.5-8.0)
--- NOTE | 2024-11-26 19:24 | PC.NURSE ---
assumed care of pt, pt with 1:1 sitter, respiration even and unlabored. no active complaints. will attempt to move pt closer to nurses station as soon as we are able.
--- NOTE | 2024-11-26 20:46 | PC.NURSE ---
pt rona o feel ght headed right before medication administration. states he felt a little fatigued. Pt medicated per MAY, pt tolerated well. talking with family on the phone 1:1 sitter at bedside.
[2024-11-26 21:07] LABS: Thyroid Stimulating Hormone 4.15 uIU/mL (0.32-4.0)
--- NOTE | 2024-11-26 21:17 | PC.NURSE ---
pt having bouts f flushing / hot flashes. pt slightly disoriented, needed to be oriented to place and situation. provider advised.
[2024-11-26 22:19] LABS: Cannabinoid Screen Urine Not Detected (Not Detect)
--- NOTE | 2024-11-26 22:20 | PC.NURSE ---
pt resting comfortably, room now ED 22 near nurses station. No current episodes of confusion/ disorientation.
--- NOTE | 2024-11-27 03:00 | PC.NURSE ---
pt Iv's unwrapped as the wrap was causing discomfort and the skin was irritated. Pt feeling better with them unwrapped.
[2024-11-27 04:36] LABS: MANUAL DIFF FLAG NO
[2024-11-27 04:37] LABS: Hematocrit 44.8 % (42.0-52.0); Hemoglobin 15.1 g/dl (14.0-18.0); Imm Gran Abs Auto 0.02 X10*3/uL (0.00-0.03); Imm Gran Pct Auto 0.2 % (0.0-0.4); Lymphocytes Absolute Auto 2.1 X10*3/uL (1.2-4.9); Mean Corpuscular HGB Conc 33.7 g/dl (31.0-36.0); Mean Corpuscular Hemoglobin 28.6 pg (27.0-33.0); Mean Corpuscular Volume 84.8 fL (80.0-98.0); NRBC Abs Auto 0.000 X10*3/uL (0.0-0.012); NRBC Pct Auto 0.0 /100WBC (0.0-0.2); Platelet Count 196 X10*3/uL (160-400); Red Blood Count 5.28 X10*6/uL (4.60-5.80); White Blood Count 9.1 X10*3/uL (4.8-10.8)
[2024-11-27 04:56] LABS: Alanine Aminotransferase 24 U/L (0-40); Albumin Level 4.4 g/dL (3.5-5.0); Alkaline Phosphatase 63 U/L (39-117); Anion Gap 11 (12-20); Aspartate Amino Transferase 28 U/L (5-37); Blood Urea Nitrogen 8 mg/dL (9-16); Calcium 9.1 mg/dL (8.4-10.2); Carbon Dioxide 24 mmol/L (22-29); Chloride 109 mmol/L (96-108); Cholesterol 155 mg/dL (<200); Creatinine Clr Calc Pharmacy 113.1; Estimated Glomerular Filt Rate > 60; HDL Cholesterol 37 mg/dL (>40); Magnesium 2.1 mg/dL (1.6-2.6); Potassium 3.8 mmol/L (3.3-5.1); Sodium 140 mmol/L (135-145); Total Protein 7.1 g/dL (6.5-8.0); Triglycerides 117 mg/dL (<150)
[2024-11-27 05:55] VITALS: BP 107/67; PULSE 70; RESP 14; O2SAT 96
[2024-11-27 06:56] VITALS: BP 116/77; PULSE 69; RESP 18; TEMP 36.6; O2SAT 98
--- NOTE | 2024-11-27 07:32 | HO.NURTONUR ---
patient presented to the ED on 11/26 for witnessed seizure at home. patient had missed doses of his keppra, has hx of non compliance. assumed care of patient at 0700, patient is awake, pleasant and alert. motivated to get better and go home to his family. patient has IV access in place, neurology following. patient has previous left hand fracture with cast on. patient has sz precautions in place.
[2024-11-27 08:44] VITALS: BP 109/65; PULSE 74; RESP 17; TEMP 36.5; O2SAT 98
--- NOTE | 2024-11-27 08:57 | P.PNIM_ITS ---
Subjective Subjective Date of Service: 11/27/24 Interval History: breakthrough seizure Review of Systems Review of Systems: Yes all other systems are reviewed and are negative Physical Exam 2 Vital Signs: Vital Signs: Last Vital Signs Temp 97.7 F 11/27/24 08:44 Pulse 74 11/27/24 08:44 Resp 17 11/27/24 08:44 BP 109/65 11/27/24 08:44 Pulse Ox 98 11/27/24 08:44 O2 Del Method Room Air 11/27/24 08:44 O2 Flow Rate 2 11/26/24 20:17 BMI result Body Mass Index 26.0 Objective Data Active Medications Acetaminophen (Acetaminophen 325 Mg Tablet) 650 mg PO Q6H PRN PRN Reason: Pain, Mild 1-3,fever,headache Calcium Carbonate (Calcium Carbonate 750 Mg Tab.Chew) 750 mg PO Q4H PRN PRN Reason: Heartburn Divalproex Sodium (Divalproex Sodium 500 Mg Tablet.) 500 mg PO BID [facility] Last Admin: 11/26/24 20:25 Dose: 500 mg Documented By: MIYA Enoxaparin Sodium (Enoxaparin Sodium 40 Mg/0.4 Ml Syringe) 40 mg SUBCUT Q24H [facility] Last Admin: 11/26/24 19:14 Dose: 40 mg Documented By: RON Levetiracetam (Levetiracetam 1,000 Mg Tablet) 1,000 mg PO BID [facility] Last Admin: 11/26/24 20:25 Dose: 1,000 mg Documented By: MIYA Magnesium Hydroxide (Milk Of Magnesia 30 Ml Oral.Susp) 30 ml PO DAILY PRN PRN Reason: Constipation Meclizine HCl (Meclizine Hcl 25 Mg Tablet) 25 mg PO Q8H PRN PRN Reason: Dizziness/vertigo Melatonin (Melatonin 3 Mg Tablet) 6 mg PO BEDTIME PRN PRN Reason: Insomnia Polyethylene Glycol (Polyethylene Glycol 3350 17 Gm Powd.Pack) 17 gm PO DAILY PRN PRN Reason: Constipation Sodium Chloride (0.9 % Sodium Chloride Flush 3 Ml Syringe) 3 ml IVFLUSH QSHIFT [facility] Last Admin: 11/27/24 07:07 Dose: Not Given Documented By: HOLDEN Non-Admin Reason: See Note Labs 11/27/24 04:30 11/27/24 04:30 Labs: Laboratory Results - last 24 hr 11/26/24 11/26/24 11/27/24 18:07 22:00 04:30 MCV 84.8 MCH 28.6 MCHC 33.7 RDW 13.1 Plt Count 196 MPV 12.0 Immature Gran % (Auto) 0.2 Neut % (Auto) 68.5 Lymph % (Auto) 23.0 [place] % (Auto) 7.4 Eos % (Auto) 0.5 Baso % (Auto) 0.4 Lymph # (Auto) 2.1 [place] # (Auto) 0.7 Eos # (Auto) 0.1 Baso # (Auto) 0.0 Abs Immat Gran (auto) 0.02 Absolute Neuts (auto) 6.3 Absolute Nucleated RBC 0.000 Nucleated RBC % (auto) 0.0 Anion Gap 11 L 11 L Estim Creat Clear Calc 114.5 113.1 Estimated GFR > 60 > 60 Random Glucose 101 Fasting Glucose 108 H Calcium 9.1 9.1 Magnesium 2.0 2.1 Total Bilirubin 0.4 0.5 AST 30 28 ALT 25 24 Alkaline Phosphatase 66 63 Total Protein 7.3 7.1 Albumin 4.5 4.4 Triglycerides 117 Cholesterol 155 LDL Cholesterol, Calc 95 HDL Cholesterol 37 L TSH 4.15 H Urine Opiates Screen Not Detected Ur Buprenorphine Scrn Not Detected Ur Oxycodone Screen Not Detected Urine Methadone Screen Not Detected Urine Fentanyl Screen Not Detected Ur Barbiturates Screen Not Detected Ur Phencyclidine Scrn Not Detected Ur Amphetamines Screen Not Detected U Benzodiazepines Scrn Not Detected Urine Cocaine Screen Not Detected U Marijuana (THC) Screen Not Detected Quality VTE VTE Risk Level:: Medical - low VTE Device Contraindication: N/A - Device Ordered VTE Drug Contraindication: N/A - Med Ordered
--- NOTE | 2024-11-27 09:24 | MHC.CM.PN ---
CM met with Patient at bedside. Patient lives in an apartment with his /HCP/Noemi and 2 Children ages 5 & 6 years of age. Patient was independent [employer] and home/self care is his goal. CM has initiated and will follow for dc planning. Patient has not yet seen his PCP at [facility]. will transport to home at time of dc.
[2024-11-27] MEDS: Potassium Chloride ER 20 MEQ TAB.ER.PRT PO (09:56)
[2024-11-27 10:12] LABS: Troponin-I High Sensitivity 11.5 ng/L (<3.5-35.0)
[2024-11-27 10:21] LABS: Free T4 (Free Thyroxine) 1.11 ng/dL (0.71-1.85)
[2024-11-27 10:26] VITALS: BMI 25.7
[2024-11-27 11:15] VITALS: BP 120/72; PULSE 98; RESP 17; TEMP 36.7; O2SAT 97
--- NOTE | 2024-11-27 12:00 | CA_ITS ---
Transthoracic Echocardiogram Patient (Last, First, Middle): Moises Crisostomo, Gender: M Date of : 1990 Age: 34 Procedure Date: 11/27/2024 Procedure Type: Transthoracic [place] [facility] [place]: 167.64 cm Weight: 72.12 kg BSA: 1.81 m2 Heart Rate: bpm BP: 109 / 64 mmHg Valuation Manager: Referring MD: Arian Red MD Symptoms: nsvt Study Quality: Good ECG Rhythm: Sinus Conclusions: - Normal left ventricular size, thickness, systolic function, and wall motion. The visually estimated ejection fraction is between 55-60%. Diastolic function is normal for age. - Normal right ventricular cavity size and systolic function. Findings Left Ventricle Normal left ventricular size, thickness, systolic function, and wall motion. The visually estimated ejection fraction is between 55-60%. Diastolic function is normal for age. Right Ventricle Normal right ventricular cavity size and systolic function. Atria The left atrium is normal in size. The right atrium is normal in size. Aortic Valve Normal aortic valve structure and function. There is no aortic valve stenosis. There is no aortic valve regurgitation. Mitral Valve Normal mitral valve structure and function. There is no mitral valve regurgitation. There is no mitral valve stenosis. Pulmonic Valve The pulmonic valve is likely normal. Tricuspid Valve Normal tricuspid valve structure. There is trace tricuspid valve regurgitation. Normal right atrial pressure. There is no evidence of pulmonary hypertension. Great Vessels All visible segments of the aorta are normal in size. The visualized portions of the pulmonary artery and branches are normal. Venous The inferior vena cava is normal in size and collapses greater than 50% with inspiration. Pericardium/Pleural There is no evidence of pericardial effusion. Prior Study Comparison No prior study available for comparison. Measurements 2D Linear Measurements IVSd: 1.03 0.6-0.9/0.6-1.0 cm LVIDd: 4.08 3.9-5.3/4.2-5.9 cm LVIDd Index: 2.25 2.4-3.2/2.2-3.1 cm/m2 LVIDs: 2.70 2.0-3.6 cm LVPWd: 1.03 0.7-1.1 cm Ao Root: 3.40 2.1-3.5 cm LA Diam: 2.50 2.7-3.8/3.0-4.0 cm LAIDs Index: 1.38 1.5-2.3 cm/m2 LV Mass: 170.10 67-162/88-224 g LV Mass Index: 93.98 43-95/49-115 g/m2 LVOT Diam: 2.10 3.0+(-)1.3 cm 2D Systolic Function EF 4C: 55.30 >55% EF 2C: 71.90 >55% EF BiP: 64.30 >55% Mitral Valve MV Pk E: 0.70 MV PK A: 0.60 MV Decel Time: 183.00 E/A: 1.20 E'Lateral: 14.50 E'Medial: 7.72 E/E' Med: 9.00 E/E' Lat: 4.80 PHT: 54.00 MVA PHT: 4.07 Decel [place]: 3.82 Aortic Valve AoV Pk Iván: 1.16 AoV Mn Iván: 0.81 AoV VTI: 0.24 AoV Pk Grad: 5.00 Aov Mn Grad: 3.00 LAURITA Cont.VTI: 2.36 LVOT LVOT Pk Iván: 0.89 LVOT Mn Iván: 0.67 LVOT VTI: 0.17 LVOT Pk Grad: 3.00 LVOT Mn Grad: 2.00 LVOT Diam: 2.10 LVOT Area: 3.46 Diastolic Function MV Pk E: 0.70 MV Pk A: 0.60 E/A: 1.20 E'Medial: 7.72 E/E' Med: 9.00 E' Laterial: 14.50 E/E' Lat: 4.80 Right Ventricle TAPSE (mm): 24.00 TVS' Iván: 16.00 Tricuspid Valve TR Pk Iván: 1.59 TR Pk Grad: 10.00 RA Press: 3.00 RVSP: 13.00 Great Vessels Aorta Ao Root-2D: 3.40 2.0-3.7 cm Ao Asc: 2.70 2.1-3.4 cm Pulmonary Valve PV Pk Iván: 0.89 Peak PV Grad: 3.00 Updated in Other Vendor System with Status of Final Aman Camacho MD electronically signed on 11/27/2024 5:06:16 PM with status of Final
[2024-11-27 14:42] LABS: Potassium 3.8 mmol/L (3.3-5.1)
[2024-11-27 15:37] VITALS: BP 132/77; PULSE 88; RESP 17; TEMP 36.9; O2SAT 97
--- NOTE | 2024-11-27 17:22 | PM.DS ---
DS: Providers Provider Date of Service: 11/27/24 Date of admission: 11/26/24 10:48 Date of discharge: 11/27/24 Primary care physician: Unknown Physician Consults: 11/26/24 10:48 Consult to Neurology Routine Consulting Provider: [facility] Reason for consultation: Breakthrough seizures Attending physician on discharge: Arian Red Discharging clinician: Arian Red DS: Diagnosis Discharge Diagnosis (1) Seizure: Status: Acute DS: Summary Hospital Course Hospital Course: HPI:34 yo with known h/o seizures who presented to the ED after a witnessed brief 2 min seizure after he admitted to missing 2 mins of seizures and his called 911. He said he is his gives him the meds on time usually prior to work and he was busy with kids and skipped 2 days worth of home seizure meds. He was reportedly in post ictal state at the time of ED arrival and was given Keppra 2gm IV and oral depakote in ED. He denies substance use and alc use. Denies F/N/V/C/D/C or any other symptoms. He was awake , non ictal and walking to the bedside commode at the time of my examination. Bedside RN was also at the bedside during the examination. HDS , no lab abn, tox screen -ve. EEG and Neuro consulted. Head CT to r/o ic pathologies. Admitted for observation as the most obv etiology was breakthrough seizure 2/2 med non-compliance. hospital course : Breakthrough seizure: Patient said that he missed seizer meds: seen by Neurology-ct head : negative, Depakote level are low, Depakote adjusted to 500 mg p.o. b.i.d. in addition to that continue Keppra home dose. nsvt: One episode per chart review : patient Asymptomatic since admisison , thought to be related to electrolytes-which seems to be fine. Echo : grossly fine. trop ekg seems fine . moniter bmp outpatient and discussed with neurology :also follow eeg outpatient. plan: depakote adjusted-500 mg po bid. eeg to follow outpatient. limited potassium supply given. moniter bmp outpatient. Assessment and plan coordination time spent 45 min, all questions answered ,patient management d/w in detail with patient -he understands and in agreement with above plan. Time Attestation Discharge Coordination Time (in mins): 45min Quality: Safe Use of Opioids Does Pt have an Active Cancer Diagnosis on the Problem List?: No Quality: Stroke Does the patient have a stroke diagnosis?: No Physical Exam Exam: Exam: General: AOx3, no acute distress Resp: CTA bilaterally CVS: S1, S2, RRR GI: +BS, NT, no distention Skin: Warm, dry Neuro: no seizures, Motor grossly intact bilaterally Extremities: No edema Psych: Appropriate affect Vital Signs: Vital Signs: Last Vital Signs Temp 98.4 F 11/27/24 15:37 Pulse 88 11/27/24 15:37 Resp 17 11/27/24 15:37 BP 132/77 11/27/24 15:37 Pulse Ox 97 11/27/24 15:37 O2 Del Method Room Air 11/27/24 15:37 O2 Flow Rate 2 11/26/24 20:17 BMI result Body Mass Index 25.7 DS: Data Data Completed and Pending Labs on day of discharge: Laboratory Results - last 24 hr 11/26/24 11/26/24 11/27/24 18:07 22:00 04:30 WBC 9.1 RBC 5.28 Hgb 15.1 Hct 44.8 MCV 84.8 MCH 28.6 MCHC 33.7 RDW 13.1 Plt Count 196 MPV 12.0 Immature Gran % (Auto) 0.2 Neut % (Auto) 68.5 Lymph % (Auto) 23.0 [place] % (Auto) 7.4 Eos % (Auto) 0.5 Baso % (Auto) 0.4 Lymph # (Auto) 2.1 [place] # (Auto) 0.7 Eos # (Auto) 0.1 Baso # (Auto) 0.0 Abs Immat Gran (auto) 0.02 Absolute Neuts (auto) 6.3 Absolute Nucleated RBC 0.000 Nucleated RBC % (auto) 0.0 Sodium 141 140 Potassium 3.9 3.8 Chloride 109 H 109 H Carbon Dioxide 25 24 Anion Gap 11 L 11 L BUN 8 L 8 L Creatinine 0.82 0.83 Estim Creat Clear Calc 114.5 113.1 Estimated GFR > 60 > 60 Random Glucose 101 Fasting Glucose 108 H Calcium 9.1 9.1 Magnesium 2.0 2.1 Total Bilirubin 0.4 0.5 AST 30 28 ALT 25 24 Alkaline Phosphatase 66 63 Troponin I High Sens Total Protein 7.3 7.1 Albumin 4.5 4.4 Triglycerides 117 Cholesterol 155 LDL Cholesterol, Calc 95 HDL Cholesterol 37 L TSH 4.15 H Free T4 1.11 Urine Opiates Screen Not Detected Ur Buprenorphine Scrn Not Detected Ur Oxycodone Screen Not Detected Urine Methadone Screen Not Detected Urine Fentanyl Screen Not Detected Ur Barbiturates Screen Not Detected Ur Phencyclidine Scrn Not Detected Ur Amphetamines Screen Not Detected U Benzodiazepines Scrn Not Detected Urine Cocaine Screen Not Detected U Marijuana (THC) Screen Not Detected 11/27/24 11/27/24 09:47 14:28 WBC RBC Hgb Hct MCV MCH MCHC RDW Plt Count MPV Immature Gran % (Auto) Neut % (Auto) Lymph % (Auto) [place] % (Auto) Eos % (Auto) Baso % (Auto) Lymph # (Auto) [place] # (Auto) Eos # (Auto) Baso # (Auto) Abs Immat Gran (auto) Absolute Neuts (auto) Absolute Nucleated RBC Nucleated RBC % (auto) Sodium Potassium 3.8 Chloride Carbon Dioxide Anion Gap BUN Creatinine Estim Creat Clear Calc Estimated GFR Random Glucose Fasting Glucose Calcium Magnesium Total Bilirubin AST ALT Alkaline Phosphatase Troponin I High Sens 11.5 D Total Protein Albumin Triglycerides Cholesterol LDL Cholesterol, Calc HDL Cholesterol TSH Free T4 Urine Opiates Screen Ur Buprenorphine Scrn Ur Oxycodone Screen Urine Methadone Screen Urine Fentanyl Screen Ur Barbiturates Screen Ur Phencyclidine Scrn Ur Amphetamines Screen U Benzodiazepines Scrn Urine Cocaine Screen U Marijuana (THC) Screen Imaging Chest x-ray: Radiologist's impression: echo: Conclusions: - Normal left ventricular size, thickness, systolic function, and wall motion. The visually estimated ejection fraction is between 55-60%. Diastolic function is normal for age. - Normal right ventricular cavity size and systolic function. Findings Left Ventricle Normal left ventricular size, thickness, systolic function, and wall motion. The visually estimated ejection fraction is between 55-60%. Diastolic function is normal for age. Right Ventricle Normal right ventricular cavity size and systolic function. Atria The left atrium is normal in size. The right atrium is normal in size. Aortic Valve Normal aortic valve structure and function. There is no aortic valve stenosis. There is no aortic valve regurgitation. Mitral Valve Normal mitral valve structure and function. There is no mitral valve regurgitation. There is no mitral valve stenosis. Pulmonic Valve The pulmonic valve is likely normal. Tricuspid Valve Normal tricuspid valve structure. There is trace tricuspid valve regurgitation. Normal right atrial pressure. There is no evidence of pulmonary hypertension. Great Vessels All visible segments of the aorta are normal in size. The visualized portions of the pulmonary artery and branches are normal. Venous The inferior vena cava is normal in size and collapses greater than 50% with inspiration. Pericardium/Pleural There is no evidence of pericardial effusion. Prior Study Comparison No prior study available for comparison. Discharge Plan Discharge Anticipated Discharge Date/Time: 11/27/24 11:09 Patient Disposition: Home, Self-Care Discharge Diagnosis: seizure dis Referrals: Physician,Unknown J [Primary Care Provider, Medical] - 1 Week Discharge Medications: New potassium chloride 8 mEq capsule, extended release 8 meq PO DAILY Qty: 4 0RF Continued levetiracetam 1,000 mg tablet 1,000 mg PO BID Changed divalproex 250 mg tablet,delayed release (DR/EC) 500 mg PO BID Qty: 480 0RF Discharge Orders: Discharge Order (Routine); Ordered 11/27/24 Ordered By: Arian Red Diet: Advance to usual diet Activity on Discharge: As tolerated Stand Alone Forms: Patient Portal Discharge page, Work/School Release Print Language: Amharic Care Plan Goals: Breakthrough seizure: Patient said that he missed Depakote also, seen by Neurology Depakote level are low, Depakote adjusted to 500 mg p.o. b.i.d. in addition to that continue Keppra home dose. nsvt: One episode per chart review : patient Asymptomatic since admisison , thought to be related to electrolytes-which seems to be fine. Echo : gibranssunday gaines. moniter bmp outpatient and also follow eeg outpatient. Health Concerns: As above. Plan of Treatment: As above. Assessment: As above Discharge Date/Time: 11/27/24 18:10
== END 2024-11-27 18:10 | disposition home or self-care (01) | DRG 53 ==
LOC: HO.ED 10:20 → HO.EDOVER 10:54 → HO.IMC 11-27 07:31
PROVIDERS: Student in an Organized Health Care Education/Training Program; Admitting Provider Student in an Organized Health Care Education/Training Program; Emergency Provider Emergency Medicine; Visit Provider Internal Medicine
DX: G40.909 Epilepsy, unspecified, not intractable, without status epilepticus (principal); I47.20 Ventricular tachycardia, unspecified; T42.6X6A Underdosing of other antiepileptic and sedative-hypnotic drugs, initial encounter; Z79.899 Other long term (current) drug therapy
CPT/HCPCS: 36415; 70450; 80048; 80053; 80061; 80076; 80164; 80307; 82947; 83690; 83735; 84132; 84439; 84443; 84484; 85025; 93005; 93306; 95819; 97161; 97165; 99285; J1650; J1953; J2250; J2405; J3360; J7120; Q9957

== ENCOUNTER → 2024-11-26 06:09 | Outpatient (BNV) | payer MEDICAID, SELFPAY | PROVIDERS: Admitting Provider Student in an Organized Health Care Education/Training Program; Emergency Provider Emergency Medicine; Visit Provider Internal Medicine Cardiovascular Disease | DX: R56.9 Unspecified convulsions (principal) | CPT/HCPCS: 93010 ==

== ENCOUNTER 2024-11-26 10:48 | Outpatient (BNV) | payer MEDICAID, SELFPAY | END 2024-11-27 12:00 | PROVIDERS: Admitting Provider Student in an Organized Health Care Education/Training Program; Emergency Provider Emergency Medicine; Visit Provider Internal Medicine Cardiovascular Disease | DX: R94.31 Abnormal electrocardiogram [ECG] [EKG] (principal) | CPT/HCPCS: 93306 ==

== ENCOUNTER 2024-11-26 10:48 | Outpatient (BNV) | payer MEDICAID, SELFPAY | END 2024-11-26 18:35 | PROVIDERS: Admitting Provider Student in an Organized Health Care Education/Training Program; Emergency Provider Emergency Medicine; Visit Provider Radiology Diagnostic Radiology | DX: R56.9 Unspecified convulsions (principal) | CPT/HCPCS: 70450 ==

== ENCOUNTER → 2024-11-26 10:48 | Outpatient (BNV) | payer MEDICAID, SELFPAY | PROVIDERS: Admitting Provider Student in an Organized Health Care Education/Training Program; Emergency Provider Emergency Medicine; Visit Provider Student in an Organized Health Care Education/Training Program | DX: R56.9 Unspecified convulsions (principal) | CPT/HCPCS: 99222; 99239; 99499 ==

== ENCOUNTER → 2024-11-26 10:48 | Outpatient (BNV) | payer MEDICAID, SELFPAY | PROVIDERS: Admitting Provider Student in an Organized Health Care Education/Training Program; Emergency Provider Emergency Medicine; Visit Provider Psychiatry & Neurology Neurology | DX: R56.9 Unspecified convulsions (principal) | CPT/HCPCS: 99222 ==

== ENCOUNTER 2024-12-10 11:30 | Outpatient (REF) | payer MEDICAID, SELFPAY ==
--- NOTE | ~2024-12-10 | XR_ITS ---
EXAMINATION: XR HAND 3 OR MORE VIEWS LEFT HISTORY: M79.642 - Pain in left hand COMPARISON: Comparison is made with the prior examination dated 11/13/2024. FINDINGS: Three views of the left hand are submitted. There is periarticular osteopenia. Again seen are 2 K wires across the 2nd through 5th metacarpal bases. The previously seen fractures of the 4th and 5th metacarpal bases are less well visualized with blurring of the fracture margins, consistent with healing. The joint spaces are preserved. The soft tissues are unremarkable. XR/XR hand LT min 3V IMPRESSION: Healing fractures of the 4th and 5th metacarpal bases. Electronically signed by: Jerome Sousa MD 12/10/2024 01:21 PM EDT
== END 2024-12-10 11:31 | disposition home or self-care (01) ==
LOC: HO.HOSX 11:30
PROVIDERS: Visit Provider Orthopaedic Surgery
DX: S62.345D Nondisplaced fracture of base of fourth metacarpal bone, left hand, subsequent encounter for fracture with routine healing (principal); S62.347D Nondisplaced fracture of base of fifth metacarpal bone, left hand, subsequent encounter for fracture with routine healing; S62.145D Nondisplaced fracture of body of hamate [unciform] bone, left wrist, subsequent encounter for fracture with routine healing; M25.642 Stiffness of left hand, not elsewhere classified; X58.XXXD Exposure to other specified factors, subsequent encounter
CPT/HCPCS: 73130; 99212

== ENCOUNTER 2024-12-10 12:59 | Outpatient (AMB) | payer MEDICAID, SELFPAY ==
--- NOTE | 2024-12-10 13:11 | MHC.OFFVIS ---
Vital Signs 12/10/24 13:34 Height 5 ft 6 in Weight 159 lb BMI 25.7 Intake Visit Reasons: PO LT 4th/5th MC CRPP 10/31/24 W XR Intake Note: Moises is a 34 year old right hand dominant male who presents today for a post operative visit status post Left 4th & 5th Metacarpal Base Fracture CRPP, DOS: 10/31/24. At his last visit he was placed in a finger spica cast. Of note he was seen at [facility] [facility] on 11/27/24 for Seizure. Today we will anticipate K Wire Removal. Xrays updated in office. Patient states he has no pain. He is limited ROM and has swelling in his fingers. Allergies No Known Allergies Allergy (Verified 11/26/24 06:39) HPI HPI PO LT 4th/5th MC CRPP 10/31/24 W XR: Details: Moises is a 34 year old right hand dominant man presenting with Left 4th & 5th Metacarpal Base Fracture dislocations, S/P CRPP, DOS: 10/31/24. He says he is doing well and denies any pain. He complains of limited ROM & swelling in his fingers. He is anxious about having his K-wires removed today. He was seen in the ED on 11/27/24 for a seizure. [facility] Medical History Seizure disorder Surgical History History of dental surgery Social History Household Members: Spouse and Children Housing: Apartment Do you presently have visiting nurse or other home services: No Alcohol intake: current Alcohol intake frequency: does not drink Patient Tobacco Use Status: Never used Tobacco e-Cigarette/Vaping Use: Never Used Substance Use Type: Marijuana service: No Current occupational status: unemployed Current occupation: rt handed Review of Systems Const All systems reviewed & are unremarkable except as noted in HPI and below Physical Exam Vital Signs: BMI result Body Mass Index 25.7 Const General: no acute distress and alert Orientation/consciousness: patient oriented x3 Neuro General: patient oriented x3 Extrem Other: The patient was alert oriented and in no acute distress The pin sites are healing well with no erythema drainage or evidence of infection. Sutures removed and Steri-Strips applied K-wires removed today in clinic, which he tolerated well Very stiff in his MCP & PIP joints of all of his fingers Sensation is intact Cap refill is brisk Radiographs: 3 views of the left hand were taken and viewed by me today in clinic. They show a 4th & 5th metacarpal base fractures with satisfactory reduction, fracture alignment, and position of all K-wires. There is also a Hamate body fracture with satisfactory fracture alignment. Psych Appearance: grossly normal Affect: normal affect Attitude: cooperative Assessment & Plan Assessment & Plan (1) Closed fracture of 4th metacarpal: Code(s): S62.308A - Unspecified fracture of other metacarpal bone, initial encounter for closed fracture Category: Medical Qualifiers: Encounter type: initial encounter Fracture alignment: nondisplaced Laterality: left Metacarpal location: base Qualified Code(s): S62.345A - Nondisplaced fracture of base of fourth metacarpal bone, left hand, initial encounter for closed fracture (2) Closed fracture of fifth metacarpal bone: Code(s): S62.308A - Unspecified fracture of other metacarpal bone, initial encounter for closed fracture Category: Medical Qualifiers: Encounter type: initial encounter Fracture alignment: nondisplaced Laterality: left Metacarpal location: base Qualified Code(s): S62.347A - Nondisplaced fracture of base of fifth metacarpal bone, left hand, initial encounter for closed fracture (3) Closed hamate fracture: Code(s): S62.143A - Displaced fracture of body of hamate [unciform] bone, unspecified wrist, initial encounter for closed fracture Category: Medical Qualifiers: Encounter type: initial encounter Fracture alignment: nondisplaced Hamate bone location: unspecified portion of hamate Laterality: left Qualified Code(s): S62.145A - Nondisplaced fracture of body of hamate [unciform] bone, left wrist, initial encounter for closed fracture (4) Stiffness of left hand joint: Code(s): M25.642 - Stiffness of left hand, not elsewhere classified Category: Medical Plan Assessment & Plan: 1. Left 4th Metacarpal Base Fracture dislocation, 2. Left 5th Metacarpal Base Fracture dislocation, S/P CRPP, DOS: 10/31/24 K-wires removed: 12/10/24 3. Left Hamate body fracture Managed conservatively 4. Left hand stiffness, S/P CRPP The patient appears to be doing well post-operatively I educated him about the post-operative course I wanted to work on ROM exercises today in clinic, but was concerned that he may become nauseous or risk fainting if I tried. The patient was worried about passing out for K-wire removal and was lying down before I proceeded. No Syncope today. I explained the signs and symptoms of infection, if the patient develops any new or worsening erythema, drainage, pain, or warmth they should contact the clinic or attend the ED. He was fitted for a velcro wrist splint, to be worn for the next 3 weeks when out of the house. He will remove this in 1 week when at home at rest. I discussed activity modifications, he is to lift lightweight things at this time, and slowly increase to medium weight activities over the next 4 weeks. They should also avoid any heavy impact activities, falls, or sports activities for the next 4 weeks He will perform gentle ROM exercises at home He should avoid any underwater activities for the next 5 days He should gently massage about the incision site to reduce the risk of hypersensitivity I ordered OT hand therapy to work on stretching, strengthening, ROM, and normalizing function He will follow up in 2-3 weeks for a ROM check, and to address any persistent stiffness. Scribed for Fabi Rose MD by Issac Alvarez, biomedical engineering technologist, on 12/10/24 at 2:10 PM, EST. Orders: Orders XR hand LT min 3V Today M79.642 - Pain in left hand OT Evaluation and Treatment Today M25.642 - Stiffness of left hand, not elsewhere classified, S62.345A - Nondisplaced fracture of base of fourth metacarpal bone, left hand, initial encounter for closed fracture, S62.347A - Nondisplaced fracture of base of fifth metacarpal bone, left hand, initial encounter for closed fracture Coding Level of Care Code Global (41392) Diagnoses Closed fracture of 4th metacarpal S62.345A Encounter type: initial encounter Fracture alignment: nondisplaced Laterality: left Metacarpal location: base Closed fracture of fifth metacarpal bone S62.347A Encounter type: initial encounter Fracture alignment: nondisplaced Laterality: left Metacarpal location: base Closed hamate fracture S62.145A Encounter type: initial encounter Fracture alignment: nondisplaced Hamate bone location: unspecified portion of hamate Laterality: left Stiffness of left hand joint M25.64
[2024-12-10 13:34] VITALS: BMI 25.7
--- OUTSIDE RECORDS SUMMARY | 2024-12-10 15:53 | XMS_ITS | Clinical Summary ---
Author Organization [email or web address] [facility] Address [address] [facility] 7 [place] [address] Care Team Providers Care Plasterer Journeyman Name Role Phone Unavailable Primary Care Provider Unavailabl e Encounters Date Type Department Care Team Description 12/06/2024 Population Health Risk Score [facility] (C3) Department [address] [id number] Provider, Population Health Generic 11/01/2024 Telephone [facility] MEDICINE [address] [place] [address] Марина Zafar RN NEEDS ELECTRICAL AND RADIO MECHANIC APPT 10/31/2024 Orders Only [facility] External Provider, [facility] 10/29/2024 Telephone [facility] INS ENROLLMENT [address] [place] [address] Chantelle Gambino MD from Last 3 Months Social History Tobacco Use Types Packs/Day Years Used Date Smoking Tobacco: Never Assessed Sex and Gender Information Value Date Recorded Sex Assigned at Male 10/29/2024 2:24 PM EDT Legal Sex Male 11:14 AM EDT Gender Identity Male 10/29/2024 2:24 PM EDT Sexual Orientation Not on file Plan of Treatment Upcoming Encounters Date Type Department Care Team (Late st Contact Info) Description 01/10/2025 10:45 AM EST Office Visit [facility] CHC MED & PEDS [address] [place] [address] Avery Sorenson CNP [address] [place] [address] Health Maintenance Due Date Last Done Comments Depression Screening 1990 HIV Screening 1990 SDOH Screening 1990 Disability Screening 1990 Alcohol/Substance Use Screening 2002 Tobacco Screening 2002 Family Planning (PISQ) 2005 HPV Vaccines (1 - Male 3-dos e series) 2005 Hepatitis C Screening 2008 Hepatitis B Vaccines (1 of 3 - 19+ 3-dose series) 2009 COVID-19 Vaccine (1 - 2023-2 5 season) 2024 Influenza Vaccine (#1) 2024 DTaP/Tdap/Td Vaccines (2 - T d or Tdap) 03/05/2031 03/05/2021 Zoster Vaccines (1 of 2) 2040 RSV [...] to 49) Years Aged Out No longer eligi ble based [...] AM EDT Narrative 10/31/2024 3:24 PM EDT [address] [address] Fluoroscopy Report Signed Patient: Moises Crisostomo MR#: [id number] : 1990 Acct:[id number] Age/Sex: 34 / M ADM Date: 10/31/24 Loc: HO.SSS Attending Dr: Fabi Rose MD Ordering Physician: Fabi Rose MD Date of Service: 10/31/24 Procedure(s): FL guidance in OR Accession Number(s): [id number] cc: [facility]; Fabi Rose MD EXAMINATION: FL GUIDANCE ONLY [...] 10/31/24 1521 DD/ 1130 TD/TT: 10/31/24 1240 Structural Worker: Procedure Note Donshaggyter, Image - 10/31/2024 [place] [address] Fluoroscopy Report Signed Patient: Moises CrisostomoMR#: [id number] : 1990Acct:[id number] Age/Sex: 34 / MADM Date: 10/31/24 Loc: .JOHNNIE Attending Dr: Fabi Rose MD Ordering Physician: Fabi Rose MD Date of Service: 10/31/24 Procedure(s): FL guidance in OR Accession Number(s): [id number] cc: [facility]; Fabi Rose MD EXAMINATION: FL GUIDANCE ONLY [...] Jerome Sousa MD 10/31/2024 03:21 PM EDT Dictated By: Jerome Sousa MD Signed By: <Electronically signed by Jerome Sousa MD in OV> 10/31/24 1521 DD/ 1130 TD/TT: 10/31/24 1240 Structural Worker: [facility] External Provider IMG IR PROCEDURES Final Result from Last 3 Months Insurance [facility] C3
--- OUTSIDE RECORDS SUMMARY | 2024-12-10 15:53 | XMS_ITS | Encounter Summary ---
Author Organization [employer] [facility] Address [address] [place] [address] Care Team Providers Care Investigation Specialist Name Role Phone Unavailable Primary Care Provider Unavailabl e Encounter Details Date Type Department Care Team (Late st Contact Info) Description 12/06/2024 Population Health Risk Score [facility] (C3) Department [address] [phone] Provider, Population Health Generic Social History Tobacco Use Types Packs/Day Years Used Date Smoking Tobacco: Never Assessed Sex and Gender Information Value Date Recorded Sex Assigned at Male 10/29/2024 2:24 PM EDT Legal Sex Male 11:14 AM EDT Gender Identity Male 10/29/2024 2:24 PM EDT Sexual Orientation Not on file documented as of this encounter Plan of Treatment Upcoming Encounters Date Type Department Care Team (Late st Contact Info) Description 01/10/2025 10:45 AM EST Office Visit [facility] CHC MED & PEDS [address] [place] [address] Avery Sorenson CNP [address] [place] [address] documented as of this encounter Visit Diagnoses Not on filedocumented in this encounter
== END 2024-12-10 14:28 | disposition home or self-care (01) ==
LOC: HO.HOS 13:00
PROVIDERS: Visit Provider Orthopaedic Surgery
DX: S62.345A Nondisplaced fracture of base of fourth metacarpal bone, left hand, initial encounter for closed fracture (principal); S62.347A Nondisplaced fracture of base of fifth metacarpal bone, left hand, initial encounter for closed fracture; S62.145A Nondisplaced fracture of body of hamate [unciform] bone, left wrist, initial encounter for closed fracture; M25.642 Stiffness of left hand, not elsewhere classified
CPT/HCPCS: 99024

== ENCOUNTER → 2024-12-10 13:02 | Outpatient (BNV) | payer MEDICAID, SELFPAY | PROVIDERS: Visit Provider Radiology Diagnostic Radiology | DX: M79.642 Pain in left hand (principal) | CPT/HCPCS: 73130 ==

== ENCOUNTER 2024-12-24 14:45 | Outpatient (AMB) | payer MEDICAID, SELFPAY ==
[2024-12-24 14:52] VITALS: BMI 25.7
--- NOTE | 2024-12-24 14:52 | A.OFFVIS_ITS ---
Vital Signs 12/24/24 14:52 Height 5 ft 6 in Weight 159 lb BMI 25.7 Intake Visit Reasons: PO LT 4th/5th MC CRPP 10/31/24 W XR Intake Note: Moises is a 34 year old right hand dominant male who presents today for a post operative visit status post Left 4th & 5th Metacarpal Base Fracture CRPP, DOS: 10/31/24. At his last visit his K-wires were removed, patient fitted for a sandro microsoft dynamics consultant wrist brace and O.T was ordered to work on stretching, strengthening, ROM, and normalizing function. He should gently massage about the incision site to reduce the risk of hypersensitivity. Today he is here for a ROM check. States he has attended O.T and is doing a little bit better. He is still working on making a full close fist. Allergies No Known Allergies Allergy (Verified 12/24/24 14:59) HPI HPI PO LT 4th/5th MC CRPP 10/31/24 W XR: Details: Moises is a 34 year old right hand dominant man presenting with Left 4th & 5th Metacarpal Base Fracture dislocations, S/P CRPP, DOS: 10/31/24. He says he is doing well in regards to pain. He complains of limited ROM & is still struggling to make a fist. He just met with OT hand therapy this morning and is set to begin therapy. He was seen in the ED on 11/27/24 for a seizure. [facility] Medical History Seizure disorder Surgical History History of dental surgery Social History Household Members: Spouse and Children Housing: Apartment Do you presently have visiting nurse or other home services: No Alcohol intake: current Alcohol intake frequency: does not drink Patient Tobacco Use Status: Never used Tobacco e-Cigarette/Vaping Use: Never Used Substance Use Type: Marijuana service: No Current occupational status: unemployed Current occupation: rt handed Review of Systems Const All systems reviewed & are unremarkable except as noted in HPI and below Physical Exam Vital Signs: BMI result Body Mass Index 25.7 Const General: no acute distress and alert Orientation/consciousness: patient oriented x3 Neuro General: patient oriented x3 Extrem Other: Evaluation of Left Upper Extremity: The patient is alert, oriented, and in no acute distress Neuro: Median, Ulnar, Radial nerves motor and sensory intact and sensation is normal to the tips of all digits Vascular: Cap refill brisk ROM: Wrist ROM: ~30 degrees flexion ~50 degrees extension Nearly symmetrical pronosupination He still has some hand stiffness. He Can actively bring his fingertips ~1-2cm from his palm The 4th and 5th CMC joints are nontender Fracture sites non-tender Psych Appearance: grossly normal Affect: normal affect Attitude: cooperative Assessment & Plan Assessment & Plan (1) Closed fracture of 4th metacarpal: Code(s): S62.308A - Unspecified fracture of other metacarpal bone, initial encounter for closed fracture Category: Medical Qualifiers: Encounter type: initial encounter Fracture alignment: nondisplaced Laterality: left Metacarpal location: base Qualified Code(s): S62.345A - Nondisplaced fracture of base of fourth metacarpal bone, left hand, initial encounter for closed fracture (2) Closed fracture of fifth metacarpal bone: Code(s): S62.308A - Unspecified fracture of other metacarpal bone, initial encounter for closed fracture Category: Medical Qualifiers: Encounter type: initial encounter Fracture alignment: nondisplaced Laterality: left Metacarpal location: base Qualified Code(s): S62.347A - Nondisplaced fracture of base of fifth metacarpal bone, left hand, initial encounter for closed fracture (3) Closed hamate fracture: Code(s): S62.143A - Displaced fracture of body of hamate [unciform] bone, unspecified wrist, initial encounter for closed fracture Category: Medical Qualifiers: Encounter type: initial encounter Fracture alignment: nondisplaced Hamate bone location: unspecified portion of hamate Laterality: left Qualified Code(s): S62.145A - Nondisplaced fracture of body of hamate [unciform] bone, left wrist, initial encounter for closed fracture (4) Stiffness of left hand joint: Code(s): M25.642 - Stiffness of left hand, not elsewhere classified Category: Medical Plan Assessment & Plan: 1. Left 4th Metacarpal Base Fracture dislocation, 2. Left 5th Metacarpal Base Fracture dislocation, S/P CRPP, DOS: 10/31/24 K-wires removed: 12/10/24 3. Left Hamate body fracture Managed conservatively 4. Left hand stiffness, S/P CRPP The patient appears to be doing well post-operatively I educated him about the post-operative course I discussed activity modifications, he is to lift lightweight things at this time, and slowly increase to medium weight activities over the next 4 weeks. 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 He was given a note to return to work on light duty, with a 3lb weight limit, until his next appointment, effective 12/25/24. He will follow up in 4-6 weeks for a ROM check, no X-rays Scribed for Fabi Rose MD by jovanni Schroeder scribe, on 12/24/24 at 3:25 PM, EST. Scribe Plan - Not visible on output: Scribed for Fabi Rose MD by jovanni Schroeder scribe, on [ ] at [ ], EST. Coding Level of Care Code New Pt Level 3 (45175) Global (16867) Diagnoses Closed fracture of 4th metacarpal S62.345A Encounter type: initial encounter Fracture alignment: nondisplaced Laterality: left Metacarpal location: base Closed fracture of fifth metacarpal bone S62.347A Encounter type: initial encounter Fracture alignment: nondisplaced Laterality: left Metacarpal location: base Closed hamate fracture S62.145A Encounter type: initial encounter Fracture alignment: nondisplaced Hamate bone location: unspecified portion of hamate Laterality: left Stiffness of left hand joint M25.642
--- OUTSIDE RECORDS SUMMARY | 2024-12-24 19:50 | XMS_ITS | Clinical Summary ---
Author Organization [employer] [facility] Address [address] [facility] 7 [place] [address] Care Team Providers Care Director Industrial Museum Name Role Phone Unavailable Primary Care Provider Unavailabl e Encounters Date Type Department Care Team Description 12/06/2024 Population Health Risk Score [facility] Care [facility] (C3) Department [address] [facility] [address] [place] [phone] Provider, Population Health Generic 11/01/2024 Telephone [facility] MEDICINE [address] [place] [address] Марина Zafar RN NEEDS LUNCHEONETTE OPERATOR APPT 10/31/2024 Orders Only [facility] External Provider, [facility] 10/29/2024 Telephone [facility] INS ENROLLMENT [address] [place] [address] Chantelle Gambino MD from Last 3 Months [...] Description 01/10/2025 10:45 AM EST Office Visit [facility] CHC MED & PEDS [address] [place] [address] Avery Sorenson CNP [address] [place] [address] Health Maintenance Due Date Last Done Comments [...] AM EDT Narrative 10/31/2024 3:24 PM EDT [address] [address] Fluoroscopy Report Signed Patient: Moises Crisostomo MR#: [id number] : 1990 Acct:[id number] Age/Sex: 34 / M ADM Date: 10/31/24 Loc: HO.SSS Attending Dr: Fabi Rose MD Ordering Physician: Fabi Rose MD Date of Service: 10/31/24 Procedure(s): FL guidance in OR Accession Number(s): [id number] cc: [facility]; Fabi Rose MD EXAMINATION: FL GUIDANCE ONLY [...] 10/31/24 1521 DD/ 1130 TD/TT: 10/31/24 1240 Insurance Sales Professional: Procedure Note Donshaggyter, Image - 10/31/2024 [place] [address] Fluoroscopy Report Signed Patient: Moises CrisostomoMR#: [id number] : 1990Acct:[id number] Age/Sex: 34 / MADM Date: 10/31/24 Loc: .JOHNNIE Attending Dr: Fabi Rose MD Ordering Physician: Fabi Rose MD Date of Service: 10/31/24 Procedure(s): FL guidance in OR Accession Number(s): [id number] cc: [facility]; Fabi Rose MD EXAMINATION: FL GUIDANCE ONLY [...] 10/31/24 1521 DD/ 1130 TD/TT: 10/31/24 1240 Insurance Sales Professional: [facility] External Provider IMG IR PROCEDURES Final Result from Last 3 Months Insurance [facility] C3
== END 2024-12-24 15:50 | disposition home or self-care (01) ==
LOC: HO.HOS 14:46
PROVIDERS: Visit Provider Orthopaedic Surgery
DX: S62.345A Nondisplaced fracture of base of fourth metacarpal bone, left hand, initial encounter for closed fracture (principal); S62.347A Nondisplaced fracture of base of fifth metacarpal bone, left hand, initial encounter for closed fracture; S62.145A Nondisplaced fracture of body of hamate [unciform] bone, left wrist, initial encounter for closed fracture; M25.642 Stiffness of left hand, not elsewhere classified
CPT/HCPCS: 99024

== ENCOUNTER → 2024-12-24 14:45 | Outpatient (BNVA) | payer MEDICAID, SELFPAY | PROVIDERS: Visit Provider Orthopaedic Surgery | DX: M25.642 Stiffness of left hand, not elsewhere classified (principal); S62.345A Nondisplaced fracture of base of fourth metacarpal bone, left hand, initial encounter for closed fracture; S62.347A Nondisplaced fracture of base of fifth metacarpal bone, left hand, initial encounter for closed fracture; S62.145A Nondisplaced fracture of body of hamate [unciform] bone, left wrist, initial encounter for closed fracture | CPT/HCPCS: 99212 ==

== ENCOUNTER 2025-01-21 09:37 | Outpatient (RCR) | payer MEDICAID, SELFPAY ==
--- NOTE | 2024-12-24 11:25 | MHC.OT.EP ---
[facility] Office [address] [phone] F: [phone] F: [phone] Occupational Therapy Plan of Care Patient Name: Moises Joseph Date of Evaluation: 12/24/24 Diagnosis: non dispalced fc Pain Location: ulnar side of L hand ; more sentitivity Pain Score: 1 Pain Scale Used: Numeric (0 - 10) Aggravating Factors: gripping ; flexion Alleviating Factors: Assessment: Pt is a 34 yr old R hand dominant male who injured his L hand in October when he punched a wall w/ his L fist. Pt waited a few days and when swelling and pain persisted he went to the ED at [facility] where he was evaluated and diagnosed fractures, of the 4th and 5th metacarpal bones and had surgery that week .Pins were removed last week by Dr. Rose and he was referred to skilled OT Therapy to increase, ROM, strength, and the functional use of his non dominant hand. Frequency and Duration: The patient will be seen 2xs a week for 4 weeks Short Term Goals: Pt will have 50 of wrist flexion Pt will be compliant w/ his HEP Pt will report 2/10 pain w/ activity Skilled Nursing Goals: Pt will make a composite fist Pt will report using his affected hand to ldr nurse his steering wheel without difficult Pt will report RPLOF Treatment Plan: Therapeutic Exercise Therapeutic Activity Home Exercise Program Splinting Neuro Re-ed Patient Education Desensitization/Sensory Re-ed Edema Control Ultrasound Iontophoresis Paraffin Fluidotherapy MHP Cold Packs Joint Mobilization Soft Tissue Mobilization Kinesiotaping Electronically Signed By: Deepthi Dior OTR/L Please Sign and return to therapist. Thank you once again for your referral.
--- NOTE | 2025-01-21 09:54 | MHC.OT.EP ---
[facility] Office [address] [facility] [phone] F: [phone] F: [phone] Occupational Therapy Plan of Care Patient Name: Moises Joseph Date of Evaluation: 01/21/25 Diagnosis: non dispalced fc Pain Location: ulnar side of L hand ; more sentitivity Pain Score: 1 Pain Scale Used: Numeric (0 - 10) Aggravating Factors: gripping ; flexion Alleviating Factors: Assessment: Pt is a 34 yr old R hand dominant male who injured his L hand in October when he punched a wall w/ his L fist. Pt waited a few days and when swelling and pain persisted he went to the ED at [facility] where he was evaluated and diagnosed fractures, of the 4th and 5th metacarpal bones and had surgery that week .Pins were removed last week by Dr. Rose and he was referred to skilled OT Therapy to increase, ROM, strength, and the functional use of his non dominant hand. Frequency and Duration: The patient will be seen 2xs a week for 4 weeks Short Term Goals: Pt will have 50 of wrist flexion MET Pt will be compliant w/ his HEP MET Pt will report 2/10 pain w/ activity MET Fdc Goals: Pt will make a composite fist MET Pt will report using his affected hand to inspector glass or mirror his steering wheel without difficult MET Pt will report RPLOF MET Treatment Plan: Therapeutic Exercise Therapeutic Activity Home Exercise Program Splinting Neuro Re-ed Patient Education Desensitization/Sensory Re-ed Edema Control Ultrasound Iontophoresis Paraffin Fluidotherapy MHP Cold Packs Joint Mobilization Soft Tissue Mobilization Kinesiotaping Electronically Signed By: Deepthi Dior OTR/L Please Sign and return to therapist. Thank you once again for your referral.
== END 2025-01-21 09:55 | disposition home or self-care (01) ==
LOC: HO.OT 09:37
PROVIDERS: Visit Provider Orthopaedic Surgery
DX: M25.642 Stiffness of left hand, not elsewhere classified (principal); S62.345D Nondisplaced fracture of base of fourth metacarpal bone, left hand, subsequent encounter for fracture with routine healing; S62.347D Nondisplaced fracture of base of fifth metacarpal bone, left hand, subsequent encounter for fracture with routine healing
CPT/HCPCS: 97110; 97140; 97165; 97530; 97535

== ENCOUNTER 2025-01-21 15:40 | Outpatient (AMB) | payer MEDICAID, SELFPAY ==
[2025-01-21 15:43] VITALS: BMI 25.7
--- NOTE | 2025-01-21 15:43 | A.OFFVIS_ITS ---
Vital Signs 01/21/25 15:43 Height 5 ft 6 in Weight 159 lb BMI 25.7 Intake Visit Reasons: PO LT 4th/5th MC CRPP 10/31/24 W XR Intake Note: Moises is a 34 year old right hand dominant male who presents today for a post operative visit status post Left 4th & 5th Metacarpal Base Fracture CRPP, DOS: 10/31/24. At his last visit he was fitted into a velcro wrist brace and to work on ROM. Today patient states he is doing well and has improved in his ROM. Allergies No Known Allergies Allergy (Verified 01/17/25 10:08) HPI HPI PO LT 4th/5th MC CRPP 10/31/24 W XR: Details: Moises is a 34 year old right hand dominant male who presents today for a post operative visit status post Left 4th & 5th Metacarpal Base Fracture CRPP, DOS: 10/31/24 He reports doing well. He notes that he is able to make a fist. Completed his therapy today. 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 in his looking forward to getting back to regular activities [facility] Medical History Seizure disorder Surgical History History of dental surgery Social History (System 01/17/25 @ 10:08 by Margie Bartlett) Household Members: Spouse and Children Housing: Apartment Do you presently have visiting nurse or other home services: No Alcohol intake: current Alcohol intake frequency: does not drink Patient Tobacco Use Status: Never used Tobacco e-Cigarette/Vaping Use: Never Used Substance Use Type: Marijuana service: No Current occupational status: unemployed Current occupation: rt handed Review of Systems Const All systems reviewed & are unremarkable except as noted in HPI and below Physical Exam Vital Signs: BMI result Body Mass Index 25.7 Const General: no acute distress and alert Orientation/consciousness: patient oriented x3 Neuro General: patient oriented x3 Extrem Other: Evaluation of Left Upper Extremity: The patient is alert, oriented, and in no acute distress Sensation intact to the tips of all digits Cap refill brisk Good improvement in his wrist flexion and extension which is now nearly symmetrical. symmetrical pronosupination He can now actively bring all of his fingers close to a tight fist and back into full extension The 4th and 5th CMC joints are nontender Fracture sites non-tender Psych Appearance: grossly normal Affect: normal affect Attitude: cooperative Assessment & Plan Assessment & Plan (1) Closed fracture of 4th metacarpal: Code(s): S62.308A - Unspecified fracture of other metacarpal bone, initial encounter for closed fracture Category: Medical Qualifiers: Encounter type: initial encounter Fracture alignment: nondisplaced Laterality: left Metacarpal location: base Qualified Code(s): S62.345A - Nondisplaced fracture of base of fourth metacarpal bone, left hand, initial encounter for closed fracture (2) Closed fracture of fifth metacarpal bone: Code(s): S62.308A - Unspecified fracture of other metacarpal bone, initial encounter for closed fracture Category: Medical Qualifiers: Encounter type: initial encounter Fracture alignment: nondisplaced Laterality: left Metacarpal location: base Qualified Code(s): S62.347A - Nondisplaced fracture of base of fifth metacarpal bone, left hand, initial encounter for closed fracture (3) Closed hamate fracture: Code(s): S62.143A - Displaced fracture of body of hamate [unciform] bone, unspecified wrist, initial encounter for closed fracture Category: Medical Qualifiers: Encounter type: initial encounter Fracture alignment: nondisplaced Hamate bone location: unspecified portion of hamate Laterality: left Qualified Code(s): S62.145A - Nondisplaced fracture of body of hamate [unciform] bone, left wrist, initial encounter for closed fracture (4) Stiffness of left hand joint: Code(s): M25.642 - Stiffness of left hand, not elsewhere classified Category: Medical Plan 1. Left 4th Metacarpal Base Fracture dislocation, 2. Left 5th Metacarpal Base Fracture dislocation, S/P CRPP, DOS: 10/31/24 K-wires removed: 12/10/24 3. Left Hamate body fracture Managed conservatively 4. Left hand stiffness, S/P CRPP He has gone on to heal well. The patient is doing much better and now has good active hand and wrist range of motion. I discussed activity modifications, he is to lift lightweight things at this time, and slowly increase to medium weight activities. Advised that he can slowly start using his left hand. 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 He may at this time resume all activities including work activities without restrictions. Scribed for Fabi Rose MD by Sallie Joseph director of medical staff services, on 01/21/2025 at 4:19 PM, EST. Coding Level of Care Code Global (81306) Diagnoses Closed fracture of 4th metacarpal S62.345A Encounter type: initial encounter Fracture alignment: nondisplaced Laterality: left Metacarpal location: base Closed fracture of fifth metacarpal bone S62.347A Encounter type: initial encounter Fracture alignment: nondisplaced Laterality: left Metacarpal location: base Closed hamate fracture S62.145A Encounter type: initial encounter Fracture alignment: nondisplaced Hamate bone location: unspecified portion of hamate Laterality: left Stiffness of left hand joint M25.642
== END 2025-01-21 16:32 | disposition home or self-care (01) ==
LOC: HO.HOS 15:41
PROVIDERS: Visit Provider Orthopaedic Surgery
DX: S62.345A Nondisplaced fracture of base of fourth metacarpal bone, left hand, initial encounter for closed fracture (principal); S62.347A Nondisplaced fracture of base of fifth metacarpal bone, left hand, initial encounter for closed fracture; S62.145A Nondisplaced fracture of body of hamate [unciform] bone, left wrist, initial encounter for closed fracture; M25.642 Stiffness of left hand, not elsewhere classified
CPT/HCPCS: 99024

== ENCOUNTER → 2025-01-21 15:40 | Outpatient (BNVA) | payer MEDICAID, SELFPAY | PROVIDERS: Visit Provider Orthopaedic Surgery | DX: M25.462 Effusion, left knee (principal); S62.345D Nondisplaced fracture of base of fourth metacarpal bone, left hand, subsequent encounter for fracture with routine healing; S62.347D Nondisplaced fracture of base of fifth metacarpal bone, left hand, subsequent encounter for fracture with routine healing; S62.145D Nondisplaced fracture of body of hamate [unciform] bone, left wrist, subsequent encounter for fracture with routine healing; Z98.890 Other specified postprocedural states | CPT/HCPCS: 99212 ==

== ENCOUNTER 2025-01-28 11:37 | Outpatient (REF) | payer MEDICAID, SELFPAY ==
[2025-01-28 14:17] LABS: MANUAL DIFF FLAG NO
[2025-01-28 14:32] LABS: Hematocrit 46.7 % (42.0-52.0); Hemoglobin 15.7 g/dl (14.0-18.0); Imm Gran Abs Auto 0.05 X10*3/uL (0.00-0.03); Imm Gran Pct Auto 0.4 % (0.0-0.4); Lymphocytes Absolute Auto 2.4 X10*3/uL (1.2-4.9); Mean Corpuscular HGB Conc 33.6 g/dl (31.0-36.0); Mean Corpuscular Hemoglobin 29.4 pg (27.0-33.0); Mean Corpuscular Volume 87.5 fL (80.0-98.0); NRBC Abs Auto 0.000 X10*3/uL (0.0-0.012); NRBC Pct Auto 0.0 /100WBC (0.0-0.2); Platelet Count 235 X10*3/uL (160-400); Red Blood Count 5.34 X10*6/uL (4.60-5.80); White Blood Count 11.8 X10*3/uL (4.8-10.8)
[2025-01-28 14:45] LABS: Alanine Aminotransferase 36 U/L (0-40); Albumin Level 4.7 g/dL (3.5-5.0); Alkaline Phosphatase 77 U/L (39-117); Anion Gap 8 (12-20); Aspartate Amino Transferase 32 U/L (5-37); Blood Urea Nitrogen 11 mg/dL (9-16); Calcium 9.5 mg/dL (8.4-10.2); Carbon Dioxide 28 mmol/L (22-29); Chloride 108 mmol/L (96-108); Cholesterol 198 mg/dL (<200); Estimated Glomerular Filt Rate > 60; HDL Cholesterol 35 mg/dL (>40); Potassium 4.1 mmol/L (3.3-5.1); Sodium 140 mmol/L (135-145); Total Protein 7.7 g/dL (6.5-8.0); Triglycerides 216 mg/dL (<150)
--- OUTSIDE RECORDS SUMMARY | 2025-01-28 15:26 | XMS_ITS | Clinical Summary ---
Author Organization [employer] [facility] Address [address] [place] [address] Care Team Providers Care Automation Developer Name Role Phone Avery Sorenson CNP Primary Care Provider [phone] Allergies No known active allergies Medications divalproex (Depakote) 250 MG EC tablet Take 2 tablets by mouth 2 times daily. 12/24/2024 Active ibuprofen 400 MG tablet TAKE 1 TABLET ORALLY 3 TIMES A DAY NEEDED FOR FEVER OR PAIN 10/24/2024 Active levETIRAcetam (Keppra) 1000 MG tablet Take 1 tablet by mouth 2 times daily. 12/10/2024 Active escitalopram (Lexapro) 10 MG tabletIndication s:Encounter for physical examination Take 1 tablet (10 mg) by mouth Once per day. 30 tablet 2 01/10/2025 04/10/19 26 Active Active Problems No known active problems Encounters Date Type Department Care Team Description 01/10/2025 10:45 AM EST Office Visit [facility] [address] [place] [address] Avery Sorenson CNP Seizure disorder (CMS/HCC) (HCC) (Primary Dx); Encounter for physical examination; Encounter for immunization; Anxiety and depression; Memory impairment 01/10/2025 Travel 01/07/2025 Telephone [facility] [address] [place] [address] Sara Segura MA chart prep 01/02/2025 Patient Outreach [facility] [address] [place] [address] Tomas Godfrey MD Pre-visit Planning (SDOH screening unable to be completed. ) 12/06/2024 Population Health Risk Score [facility] ([facility]) Department [address] [address] Provider, Population Health Generic 11/01/2024 Telephone [facility] [address] [place] [address] Марина Zafar RN NEEDS COATING MIXER TENDER APPT 10/31/2024 Orders Only [facility] External Provider, [facility] 10/29/2024 Telephone [facility]OLL[facility] [address] [place] [address] Chantelle Gambino MD from Last 3 Months Immunizations Immunization Administration Dates Next Due HepB-CpG 01/10/2025 02/09/2025 Influenza, seasonal, injectable, preservative fr ee 01/10/2025 Tdap 03/05/2021 Social History Tobacco Use Types Packs/Day Years Used Date Smoking Tobacco: Never Passive Smoke Exposure: Never Smokeless Tobacco: Never Tobacco Cessation:Counseling Given: Not Answered Depression Answer Date Recorded Patient Health Questionnaire-9 Score 1 01/10/2025 Patient Health Questionnaire-9 Score 1 01/10/2025 Last PHQ-9: Questionnaire Data Not on file 1 03/12/2024 Housing Stability Answer Date Recorded What is your housing situation today? I have sergerosalee dan 01/10/[address] you li ve. Do you have problems with any of the following? None of the above 01/10/2025 Food Insecurity Answer Date Recorded Within the past 12 months, y ou worried that your food would run out before you got money to buy more: Never True 01/10/2025 Within the past 12 months,th e food you bought just didn't last and you didn't have enough money to get more: Never True 09/2024 Transportation Answer Date Recorded In the past 12 months, has l ack of transportation kept you from medical appts, meetings, work or from getting things needed for daily living? No 01/10/2025 Utilities Answer Date Recorded In the past 12 months, has t he electric, gas, oil or water company threatened to shut off services in your home? No 01/10/2025 Depression Answer Date Recorded Patient Health Questionnaire-2 Score 1 01/10/2025 Internet Access Answer Date Recorded Internet Access Q1 Yes 01/10/2025 Internet Access Q2 Not on file 01/10/2025 Sex and Gender Information Value Date Recorded Sex Assigned at Male 10/29/2024 2:24 PM EDT Legal Sex Male 11:14 AM EDT Gender Identity Male 10/29/2024 2:24 PM EDT Sexual Orientation Straight 01/28/2025 11 :43 AM EST Last Filed Vital Signs Vital Sign Reading Time Taken Comments Blood Pressure 122/84 01/10/2025 10:53 AM EST Pulse 74 01/10/2025 10:53 AM EST Temperature 36.8 C (98.2 F) 01/10/2025 10:53 AM EST Respiratory Rate 14 01/10/2025 10:53 AM EST Oxygen Saturation 99% 01/10/2025 10:53 AM EST Inhaled Oxygen Concentration - - Weight 73.9 kg (163 lb) 01/10/2025 10:53 AM EST Height 167.6 cm (5' 6 ) 01/10/2025 10:53 AM EST Body Mass Index 26.31 01/10/2025 10:53 AM EST Plan of Treatment Upcoming Encounters Date Type Department Care Team ([facility] st Contact Info) Description 02/11/2025 1:15 PM EST Nurse Only [facility] [address] [place] [address] Health Maintenance Due Date Last Done Comments HIV Screening 1990 Family Planning (PISQ) 2005 HPV Vaccines (1 - Male 3-dos e series) 2005 Hepatitis C Screening 2008 COVID-19 Vaccine (1 - 2024-2 6 season) 2024 Hepatitis B Vaccines (2 of 2 - CpG 2-dose series) 02/07/2025 01/10/2025 Alcohol/Substance Use Screening 01/10/2026 01/10/2025 Depression Screening 01/10/2026 01/10/2025, 01/10/2025 Disability Screening 01/10/2026 01/10/2025 SDOH Screening 01/10/2026 01/10/2025 Tobacco Screening 01/10/2026 01/10/2025 DTaP/Tdap/Td Vaccines (2 - T d or Tdap) 03/05/2031 03/05/2021 Zoster Vaccines (1 of 2) 2040 RSV Patients and Patients Aged 60 years or older (1 - 1-dose 75+ series) 2065 Influenza Vaccine Completed 01/10/2025 HIB Vaccines Aged Out No longer eligi [...] age to complete this topic Pneumococcal Vaccine: Pediatrics (0 to 5 Years) and At-Risk Patients [...] Procedure Name Priority Date/Time Associated Diagnosis Comments COMPREHENSIVE METABOLIC PANEL Routine 01/28/2025 11:38 AM EST Encounter for physical examination CBC WITH AUTO DIFFERENTIAL Routine 01/28/2025 11:38 AM EST Encounter for physical examination LIPID PANEL, STANDARD Routine 01/28/2025 11:38 AM EST Encounter for physical examination FL GUIDANCE IN OR Routine 10/31/2024 11: 30 AM EDT from Last 3 Months Results * (ABNORMAL) CBC auto differential (01/28/2025 11:38 AM EST) White Blood Count 11.8(H) 4.8 - 10.8 X10*3/uL [facility] Red Blood Count 5.34 4.60 - 5.80 X10*6/uL [facility] Hemoglobin 15.7 14.0 - 18.0 g/dl [facility] Hematocrit 46.7 42.0 - 52.0 % [facility] Mean Corpuscular Volume 87.5 80.0 - 98.0 fL [facility] Mean Corpuscular Hemoglobin 29.4 27.0 - 33.0 pg [facility] Mean Corpuscular HGB Conc 33.6 31.0 - 36.0 g/dl [facility] Red Cell Distribution Width 13.7 11.0 - 16.0 % [facility] Platelet Count 235 160 - 400 X10*3/uL [facility] Mean Platelet Volume 12.4 9.4 - 12.4 fL [facility] Neutrophils Percent Auto 69.0 45 - 73 % [facility] Imm Gran Pct Auto 0.4 0.0 - 0.4 % [facility] Lymphocytes Percent Auto 20.0 20 - 40 % [facility] Monocytes Percent Auto 6.7 2 - 11 % [facility] Eosinophils Percent Auto 3.4 0 - 4 % [facility] Basophils Percent Auto 0.5 0 - 2 % [facility] NRBC Pct Auto 0.0 0.0 - 0.2 /100WBC [facility] Neutrophils Absolute Auto 8.1 2.0 - 8.3 x10*3/uL [facility] Imm Gran Abs Auto 0.05(H) 0.00 - 0.03 X10*3/uL [facility] Lymphocytes Absolute Auto 2.4 1.2 - 4.9 X10*3/uL [facility] Monocytes Absolute Auto 0.8 0.1 - 1.2 X10*3/uL [facility] Eosinophils Absolute Auto 0.4 0.0 - 0.4 X10*3/uL [facility] Basophils Absolute Auto 0.1 0.0 - 0.2 X10*3/uL [facility] NRBC Abs Auto 0.000 0.0 - 0.012 X10*3/uL [facility] Blood Venous blood specimen / Unknown 01/28/2025 11:38 AM EST 01/28/2025 2:14 PM EST Avery Sorenson [facility] BLOOD ORDERABLES Sharon l Result [facility] [address] [place] [address] [phone] * (ABNORMAL) Lipid Panel, Standard (01/28/2025 11:38 AM EST) Triglycerides 216(H) <150 mg/dL [facility] Comment:Desirable Triglyceri de: less than 150 mg/dLBorderline High Triglyceride 150-199 mg/dLHigh Triglyceride: 200-499 mg/dLVery High Triglyceride: greater than or equal to 5OO mg/dL Cholesterol 198 <200 mg/dL [facility] Comment:Desirable Cholestero l: less than 200 mg/dLBorderline High Cholesterol: 200-239 mg/dLHigh Cholesterol: greater than 239 mg/dL LDL Cholesterol Calculated 120(H) <100 mg/dL [facility] Comment:Desirable LDL: less than 100 mg/dLNear Optimal/Above Optimal LDL: 110- 129 mg/dLBorderline High LDL: 130-159 mg/dLHigh LDL: 160-189 mg/dLVery High LDL: greater than or equal to 190 mg/dL HDL Cholesterol 35(L) >40 mg/dL [facility] Comment:Desirable HDL: great er than 40 mg/dL Note: This HDL assay may give artificially low results in patients with liver disease. Blood Venous blood specimen / Unknown 01/28/2025 11:38 AM EST 01/28/2025 2:19 PM EST [facility] LAB BLOOD ORDERABLES Sharon l Result [facility] [address] [place] [phone] * (ABNORMAL) Comprehensive Metabolic Panel (01/28/2025 11:38 AM EST) Sodium 140 135 - 145 mmol/L [facility] Potassium 4.1 3.3 - 5.1 mmol/L [facility] Chloride 108 96 - 108 mmol/L [facility] Carbon Dioxide 28 22 - 29 mmol/L [facility] Anion Gap 8(L) 12 - 20 [facility] Urea Nitrogen (BUN) 11 9 - 16 mg/dL [facility] Creatinine, Serum 0.85 0.5 - 1.4 mg/dL [facility] Estimated Glomerular Filt Rate >60 [facility] Comment:Chronic Kidney Disea se: Estimated GFR < 60 mL/min/[id number] Kidney Disease: Estimated GFR < 15 mL/min/1.73m2 Glucose 75 60 - 115 mg/dL [facility] Calcium 9.5 8.4 - 10.2 mg/dL [facility] Bilirubin, Total 0.3 0.0 - 1.0 mg/dL [facility] Aspartate Amino Transferase 32 5 - 37 U/L [facility] Alanine Aminotransferase 36 0 - 40 U/L [facility] Total Protein 7.7 6.5 - 8.0 g/dL [facility] Albumin Level 4.7 3.5 - 5.0 g/dL [facility] Alkaline Phosphatase 77 39 - 117 U/L [facility] Blood Venous blood specimen / Unknown 01/28/2025 11:38 AM EST 01/28/2025 2:19 PM EST [facility] LAB BLOOD ORDERABLES Sharon l Result Performing Organization Address City/State/[facility] Co de Phone Number [facility] [address] [place] [address] [phone] * FL Guidance in OR (10/31/2024 11:30 AM EDT) Anatomical Region Laterality Modality X-Ray Angiograph y 10/31/2024 11:3 0 AM EDT Narrative 10/31/2024 3:24 PM EDT [address] [address] Fluoroscopy Report Signed Patient: Moises Crisostomo MR#: [id number] : 1990 Acct:[id number] Age/Sex: 34 / M ADM Date: 10/31/24 Loc: HO.SSS Attending Dr: Fabi Rose MD Ordering Physician: Fabi Rose MD Date of Service: 10/31/24 Procedure(s): FL guidance in OR Accession Number(s): [id number] cc: [facility]; Fabi Rose MD EXAMINATION: FL GUIDANCE [...] Sousa MD Signed By: <Electronically signed by Jeorme Sousa MD in OV> 10/31/24 1521 DD/ 1130 TD/TT: 10/31/24 1240 Natural History Collections Curator: Procedure Note Donotuseinterpreter, Image - 10/31/2024 [place] [address] Fluoroscopy Report Signed Patient: Maru Crisostomo#: [id number] : 1990Acct:[id number] Age/Sex: 34 / MADM Date: 10/31/24 Loc: HO.[facility] Attending Dr: Fabi Rose MD Ordering Physician: Faib Rose MD Date of Service: 10/31/24 Procedure(s): FL guidance in OR Accession Number(s): [id number] cc: [facility]; Fabi Rose MD EXAMINATION: FL GUIDANCE [...] 10/31/24 1521 DD/ 1130 TD/TT: 10/31/24 1240 Natural History Collections Curator: [facility] External Provider IMG IR PROCEDURES Final Result from Last [address] [id number] [facility] C3 Care Teams Automation Developer Relationship Specialty Start Date End Date Avery Sorenson CNP [address] [place] [phone] PCP - General Family Medicine 01/10/25
[2025-01-29 05:41] LABS: HIV Num 1 0.19 S/CO (0.00-0.99); ~HepC Num1 0.12 S/CO (0.00-0.79); ~Hepatitis C Antibody Nonreactive (Nonreactive)
== END 2025-01-28 11:38 | disposition home or self-care (01) ==
LOC: HO.CHCLDS 11:37
DX: Z00.00 Encounter for general adult medical examination without abnormal findings (principal); Z11.4 Encounter for screening for human immunodeficiency virus [HIV]; Z11.59 Encounter for screening for other viral diseases
CPT/HCPCS: 36415; 80053; 80061; 85025; 86803; 87389

== ENCOUNTER 2025-02-12 11:47 | Outpatient (AMB) | payer MEDICAID, SELFPAY ==
--- NOTE | 2025-02-12 11:54 | A.OFFVIS_ITS ---
Intake Visit Reasons: Seizure withdrawals Allergies No Known Allergies Allergy (Verified 01/17/25 10:08) HPI Comments Details: 34 years old right-handed man, a video game enthusiast, with no family history of epilepsy came to [facility] emergency room in June of 2021 after he had a generalized seizure at home. His family reported that he started making abnormal noises, passed out, and had a generalized tonic-clonic convulsion. He also sustained an injury to left side of face. He is presenting for follow-up of his seizure disorder. His reports that over the past week he has been disoriented, lost, repeating himself, and experiencing symptoms suggestive of pre-seizure auras, although no convulsive events have occurred. His current medication regimen for seizures includes levetiracetam 1000 mg twice daily and divalproex acid 250 mg once daily in the morning. His states that he has been adherent with these medications. He also has a prescription for escitalopram from his primary care physician, Dr. Quinn Sorenson at the [facility], for anger management, anxiety, and depression. It was discovered during the visit that the patient has been accidentally taking oxycodone, which was previously prescribed for a broken arm, instead of his escitalopram. His also reports that he becomes angry, yells, and expresses suicidal ideation when he feels seizure symptoms are imminent. The patient was hospitalized for three days last month at [facility] and had two procedures there in the preceding months. [facility] Medical History Seizure disorder Surgical History (Reviewed 12/24/24 @ 15:00 by Carolynn Riggins [facility]) History of dental surgery Social History (System 01/17/25 @ 10:08 by Margie Bartlett) Household Members: Spouse and Children Housing: Apartment Do you presently have visiting nurse or other home services: No Alcohol intake: current Alcohol intake frequency: does not drink Patient Tobacco Use Status: Never used Tobacco e-Cigarette/Vaping Use: Never Used Substance Use Type: Marijuana service: No Current occupational status: unemployed Current occupation: rt handed Review of Systems Narrative - Neurological: Reports a one-week history of disorientation, being lost, repetitive speech, and symptoms of an impending seizure. - Psychiatric: Reports feeling angry, yelling, and expressing thoughts of not wanting to be alive when experiencing seizure auras. Physical Exam Neuro Other: Mental Status: Alert and oriented to person, place, and time. Normal attention. Normal spontaneous speech, fluency, and comprehension. Cranial Nerves: CN II: Visual allison full to confrontation, visual acuity intact. CN III, IV, : Pupils equal, round, reactive to light and accommodation. Extraocular movements are normal. CN V: Facial sensation is normal. CN VII: Facial movements symmetrical. CN VIII: Hearing intact to bedside conversation is normal. CN IX, X: Palate elevates symmetrically. CN XI: Shoulder shrug and head turn symmetrical. CN XII: Tongue midline without atrophy or fasciculations. Motor: Bulk and tone normal in all extremities. No significant muscle weakness in arms and legs. No drift. Gait and Station: No obvious gait abnormality. No ataxia or instability. Extrapyramidal: Full facial expressions and blinking. No rigidity. Movements are appropriate with no tremor or abnormality. Speech: Normal; no dysarthria or tremor. Assessment & Plan Assessment & Plan (1) Seizure disorder: Comment: CT brain WO at [facility] in Apr 2023: OK Routine EEG at off in July 2024: WNL .Routine EEG at off in Jun 2022: left temp slowing CT brain WO at [facility] in 2021: WNL MRI brain WO at [facility] in Apr 2022: WNL. Code(s): G40.909 - Epilepsy, unspecified, not intractable, without status epilepticus Category: Medical Plan Impression: a: Epilepsy b: Mood disorder Rec: a: Levetiracetam 1g twice a day b: Divalproex acid 500mg twice a day c: May continue Escitaloprim d: Regular counseling is recommended e: EEG to r/o non-convulsive epileptic activity I spoke with the patient and his regarding his recent symptoms of disorientation and seizure auras. We discovered a critical medication error, identifying that he was taking oxycodone instead of his antidepressant. I instructed them to dispose of the oxycodone immediately. I explained that I am increasing the divalproex acid to 500 mg twice a day, which will help with both seizure control and mood stabilization. I also informed them that I will schedule an EEG to get a better understanding of his brain activity. Orders: Orders EEG Routine Today G40.909 - Epilepsy, unspecified, not intractable, without status epilepticus Coding Level of Care Code Est Pt Level 4 (31143) Diagnoses Seizure disorder G40.909
== END 2025-02-12 12:16 | disposition home or self-care (01) ==
LOC: HO.HSM 11:47
PROVIDERS: Visit Provider Psychiatry & Neurology Neurology
DX: G40.909 Epilepsy, unspecified, not intractable, without status epilepticus (principal)
CPT/HCPCS: 99214

== ENCOUNTER → 2025-02-12 11:47 | Outpatient (BNVA) | payer MEDICAID, SELFPAY | PROVIDERS: Visit Provider Psychiatry & Neurology Neurology | DX: G40.909 Epilepsy, unspecified, not intractable, without status epilepticus (principal); F39 Unspecified mood [affective] disorder; Z79.899 Other long term (current) drug therapy | CPT/HCPCS: 99212 ==